=== PATIENT | male | born 1980 | race Caucasian/White ===

== ENCOUNTER 2017-11-25 09:30 | Outpatient (RCR) | payer MEDICAID, SELFPAY ==
--- NOTE | 2017-10-20 09:16 | HP.PTEVAL_ITS ---
Patient's Visit Information MARY CLANCY is a 37 year old M referred to Physical Therapy by [facility] [place] with a diagnosis of low back pain with sciatica on L side. Date of Evaluation: 10/15/17 Physical Therapist: Fred Rodriguez - Visit Plan Frequency: 2x /Week Duration: 4 Weeks Plan: Start with core strengthening, HS stretching, rectus fermoris stretching - Subjective Subjective: Pt. is here today for his initial evaluation with diagnosis of low back pain with sciatica on L side. Pt. reports having symptoms for ~ a year and a half. He reports having increased pain after mowing when he hit a hole (large hold), slamming him down. He reports having immediate pain, that is now on and off, but has been getting worse. He reports having 2 MRIs that have shown DDD and hip issues, but did not warrant surgery at this time. Pt. reports increased pain with sitting or standing for 1/2 hour, lifting heavy objects. Decreases pain: TENS, heat, ice if it is real bad, occassionally lying on a soft surface can help. Pt. denies N/T, no sudden weakness, no changes in B/B. He reports increased pain with chiropractor, mild decreased in pain with injections and mild pain relief with PT. Physician reports wanting to trial strengthening adn stretching to reduce symptoms. Pt. is hopeful to get back to work activities and recreational activities without symptoms. - Pain lumbar spine Pain Intensity (Out of 10): 6 Pain Intensity Range: 4, 8 L leg Pain Intensity (Out of 10): 0 Pain Intensity Range: 0, 8 Comment: burning in my hips, occassional shooting into his leg - Objective POSTURE: Pt. has slight fwrd flexed posture. Slight reduction in lumbar lordosis. pt. has equal iliac crest heights. Pt. also has FH positioning and rounded shoulders. Pt. has normal ROSALIA with normal knee postioning. Pt. does have slight lateral lean to R side with fwrd flexed posture. Pt. reports increased pain with attempting to correct. PALPATION: Pt. has increased tenderness at L SI region and L L2-S1 erector spinea. Pt. has mild increase NW symptoms with spring testing at L3-L5- reproduced lateral symptoms. Pt. has no pain to palpation of R side of lumbar spine. Pt. has no pain with palpation of bilateral hips. NEUROLOGICAL: Pt. has normal sensation to light and sharp touch throughout bilateral LEs. Pt. has 2+ achilles and patellar DTR bilaterally. Pt. is able to rise on heels and toes without issues or LOB. ROM: LUMBAR SPINE: flexion- min/mod loss increase L side pain, ext mod loss increase lumbar and L sided pain, SB R min loss increase NW on L side, SB L nil loss NE, rotations R min/nil loss increase NW, rotation L min/nil loss increase NW. Pt. has normal hip ROM, except mild increase in pain with hip flexion past 90deg and hip ext past 10deg bilaterally. HS length- R side 71deg, L side 58deg. MMT : RLE- ankle/knee 5/5 throughout; hip- flexion 4/5 increase NW, abd 4/5 increase NW, ext 4+/5, increase NW. LLE- ankle 5/5 throughotu; knee- ext 4+/5, flexion 4+/5; hip- flexon 4/5, abd 4/5, ext 4/5 increase NW with all L hip testing. Core strength- poor+. GAIT: Pt. has slight flexed posture in stance, pt. has normal step length, but decreased tempo with gait, minimal arm swing. Pt. has increase in R lateral/flexed lean with gait. STAIRS: Pt. is able to complete with reciprocal pattern, but does use 2 HR and reports increased pain with ascending/descending. - Special Tests L/S Slump test left side: Positive L/S Slump test right side: Negative L/S Left Straight Leg Raise: Positive L/S Right Straight Leg Raise: Negative Lumbar Standing: Flexion - Mechanical Response: No effect Lumbar Standing: Flexion - Symptoms During Testing: Increases Lumbar Standing: Flexion - Symptoms After Testing: No worse Lumbar Standing: Extension - Mechanical Response: No effect Lumbar Standing: Extension - Symptoms During Testing: Increases Lumbar Standing: Extension - Symptoms After Testing: No worse Lumbar Standing: Right Side Glides - Mechanical Response: No effect Lumbar Standing: Right Side [place] - Symptoms During Testing: Increases Lumbar Standing: Right Side [place] - Symptoms After Testing: No worse Lumbar Standing: Left Side [place] - Mechanical Response: No effect Lumbar Standing: Left Side [place] - Symptoms During Testing: Increases Lumbar Standing: Left Side [place] - Symptoms After Testing: No worse Lumbar Lying: Flexion - Mechanical Response: No effect Lumbar Lying: Flexion - Symptoms During Testing: Increases Lumbar Lying: Flexion - Symptoms After Testing: No worse Lumbar Lying: Extension - Mechanical Response: No effect Lumbar Lying: Extension - Symptoms During Testing: Increases Lumbar Lying: Extension - Symptoms After Testing: Worse Comments:: worse pain with prone ext testing Lumbar Static: Slouched Sit - Mechanical Response: No effect Lumbar Static: Slouched Sit - Symptoms During Testing: Increases Lumbar Static: Slouched Sit - Symptoms After Testing: Worse Lumbar Static: Sitting Erect - Mechanical Response: No effect Lumbar Static: Sitting Erect - Symptoms During Testing: Decreases Lumbar Static: Sitting Erect - Symptoms After Testing: No better Lumbar Static:Lying Prone in Extension - Mechanical Response: No effect Lumbar Static: Lying Prone in Extension - Sx During Testing: Increases Lumbar Static: Lying Prone in Extension - Sx After Testing: No worse R Hip Scour: Negative R Hip SUSIE - Intraarticular Pathology: Negative R Hip FADDIR - Labrum: Negative R Hip Sonia - IT Band: Negative L Hip Scour: Negative L Hip Quadrant - Intraarticular Pathology: Positive L Hip SUSIE - Intraarticular Pathology: Positive - Goals Goal 1:: Pt. to be I with HEP. Goal Time Frame: 4-6 Weeks Goal 2:: Pt. to have increase lumbar ROM by 25% without increased in symptoms. Goal Time Frame: 4-6 Weeks Goal 3:: Pt. to have increased B hip and core strength by 1/2 grade of all effected musculature to reduce stress on lumbar spine with all functional mobility. Goal Time Frame: 4-6 Weeks Goal 4:: Pt. to walk unlimited distances with 0-1/10 pain in lumbar spine allowing for increased tolerance to all functional mobility. Goal Time Frame: 4-6 Weeks Goal 5:: Pt. to reports no pain while sleeping allowing for increased quality of life. Goal Time Frame: 4-6 Weeks Goal 6:: Pt. to have increased HS length by 10deg allowing for normal pelvic positioning. Goal Time Frame: 4-6 Weeks - Rehabilitation Potential Physical Therapy Diagnosis: Pt. has signs and symptoms consistent with lumbar spine pain with radiation down his LLE to level of his knee. Pt. does not appear to have a directional preference. He has increased pain with walking, standing and prlonged sitting. He has poor posture in sitting and standing along with weak core musculature. He Rehabilitation Potential: Good - Anticipated Interventions Patient/Client Instruction: Educate patient on: Condition, Plan of Care, Risk Factors, Benefits of Fitness Program For the Purpose of:: To improve safety with gait, To assume or resume ADL's, To reduce risk of recurrence, To improve safety, To improve health and function, To foster healthy habits, To improve decision making, To facilitate caregiver knowledge, To improve self management, To prevent re-injury, To improve ability to perform tasks related to life management, To improve tolerance to ADL's Therapeutic Exercise to Include: Strength training, Power training, Endurance training, Body mechanics, Postural training, Flexibilty training, Passive ROM, Active ROM, Dynamic Lumbar Stabilization For the Purpose of:: To decrease pain, To increase ROM, To improve nutrient delivery to tissue, To increase oxygenation perfusion, To improve muscle performance and motor function, To improve performance and independence with ADL 's, To decrease level of supervision to perform tasks, To improve ability of physical actions for home/community/work/leisure, To improve gait and locomotor functions, To improve health of tissue, To decrease soft tissue restriction Manual Therapy Techniques to Include: Mobilization, Passive ROM, Functional dry needling, Soft tissue mobilization For the Purpose of:: To decrease pain, To increase ROM, To improve nutrient delivery to tissue, To increase oxygenation perfusion, To improve muscle performance and motor function IF ES: Yes Cryotherapy (ice pack, ice massage): Yes Thermo therapy (hot pack): Yes Ultrasound (thermal/non thermal): Yes For the Purpose of:: To decrease pain, To decrease swelling/inflammation, To increase ROM, To improve nutrient delivery to tissue, To increase oxygenation perfusion Thank you for the opportunity to evaluate your patient. For Medicare and Medicare HMO plans, please review the plan of care and approve it. It will need to be FAXED BACK to us at [phone] for Medicare purposes. Please let me know if there are questions or concerns regarding this plan of care. Physician Signature: Date:
--- NOTE | 2018-05-13 19:27 | HP.PTDCNRP_ITS ---
HP - Discharge Summary (1) - Patient Information MARY CLANCY was seen in my office for initial evaluation on 10/15/17. The following Plan of Care was established for this patient: Initial Frequency: 2x /Week Initial Duration: 4 Weeks - Anticipated Interventions Patient/Client Instruction: Educate patient on: Condition, Plan of Care, Risk Factors, Benefits of Fitness Program For the Purpose of:: To improve safety with gait, To assume or resume ADL's, To reduce risk of recurrence, To improve safety, To improve health and function, To foster healthy habits, To improve decision making, To facilitate caregiver knowledge, To improve self management, To prevent re-injury, To improve ability to perform tasks related to life management, To improve tolerance to ADL's Therapeutic Exercise to Include: Strength training, Power training, Endurance training, Body mechanics, Postural training, Flexibilty training, Passive ROM, Active ROM, Dynamic Lumbar Stabilization For the Purpose of:: To decrease pain, To increase ROM, To improve nutrient delivery to tissue, To increase oxygenation perfusion, To improve muscle performance and motor function, To improve performance and independence with ADL 's, To decrease level of supervision to perform tasks, To improve ability of physical actions for home/community/work/leisure, To improve gait and locomotor functions, To improve health of tissue, To decrease soft tissue restriction Manual Therapy Techniques to Include: Mobilization, Passive ROM, Functional dry needling, Soft tissue mobilization For the Purpose of:: To decrease pain, To increase ROM, To improve nutrient delivery to tissue, To increase oxygenation perfusion, To improve muscle performance and motor function IF ES: Yes Cryotherapy (ice pack, ice massage): Yes Thermo therapy (hot pack): Yes Ultrasound (thermal/non thermal): Yes For the Purpose of:: To decrease pain, To decrease swelling/inflammation, To increase ROM, To improve nutrient delivery to tissue, To increase oxygenation perfusion This patient was last seen in our office 11/25/17. Pertinent comments regarding their Physical therapy will appear below: Pt. was seen in PT for his low back pain. Pt. was making minmal progressed with trials of strengthening, stretching and modalities. Pt. was referred back to his physician and to follow back up with PT if needed. Pt. has not been seen in ~6 months and will be DC from PT at this point in time. At this point I will be discontinuing this patient from physical therapy. I would be happy to see this patient again in the future if found appropriate by the physician. Thank you! Fred Rodriguez
== END 2017-11-25 19:00 | disposition home or self-care (01) ==
LOC: PT 09:30
PROVIDERS: Family Provider Internal Medicine; PCP Internal Medicine
DX: M54.40 Lumbago with sciatica, unspecified side (principal); G89.29 Other chronic pain
CPT/HCPCS: 97012; 97110; 97162; 97530

== ENCOUNTER 2018-01-09 12:24 | Day surgery (SDC) | payer MEDICAID, SELFPAY ==
[2018-01-09 12:41] VITALS: BP 108/61; PULSE 65; RESP 16; TEMP 36.6; O2SAT 93; BMI 34.6
--- NOTE | 2018-01-09 14:58 | PCM.DC ---
- Discharge Diagnoses Current Active Problems: Lumbar degenerative disc disease and lumbar radiculopathy Disc displacement with lumbar radiculopathy Reason(s) for Visit for Discharge Instructions: Caudal epidural steroid injection under fluoroscopy guidance You will use the following diet at home:: No restrictions Your food should be the consistency of: Regular Discharge Activity: Return to Normal Activity, No Restrictions, May not drive while taking narcotic pain medications. May shower in (days): 1 May resume sexual activity in: No Restrictions Weight Bearing Status: Weight bearing as tolerated Call your doctor if your incision/area has: Increased Pain/ Swelling, Swelling at the incision site Call your doctor if you observe: Fever of 101 or Higher, Inability to have a bowel movement, Calf discomfort, Uncontrolled pain Suture Line Care: Avoid Pulling/Pushing, Avoid Pinching/Bending Remove Dressing in (days):: 1 Cleanse incision/area with: Soap & Water Allergies/Adverse Reactions: Allergies acetaminophen [From Vicodin] Allergy (Verified 01/05/18 12:05) MUSCLULAR CHEST PAIN hydrocodone [From Vicodin] Allergy (Verified 01/05/18 12:05) MUSCLULAR CHEST PAIN Penicillins Allergy (Verified 01/05/18 12:05) Swelling Medications to take at Discharge Bupropion HCl [Wellbutrin Xl] 150 mg PO DAILY 01/05/18 Fluoxetine [Prozac] 10 mg PO DAILY 01/05/18 Meloxicam [Mobic] 7.5 mg PO DAILY 01/05/18 Metaxalone [Skelaxin] 800 mg PO TID 01/05/18 traZODone [Desyrel] 100 mg PO QHS 01/05/18 Primary Care Physician: Rachael Arreola MD [Primary Care Provider] - Please Follow Up With: Eric Roach MD
[2018-01-09] MEDS: Triamcinolone Acetonide 40 MG/ML Vial (15:06)
--- NOTE | 2018-01-09 15:14 | OP.PCM_ITS ---
Problem List (1) Other intervertebral disc displacement, lumbar region Status: Acute (2) Other intervertebral disc displacement, lumbar region Status: Acute (3) Other intervertebral disc degeneration, lumbar region Status: Acute (4) Other intervertebral disc degeneration, lumbar region Status: Acute Report of Operation Date of Procedure: 01/09/18 Pre-Operative Diagnosis: Lumbar disc displacement, lumbar degenerative disc disease with lumbar radiculopathy Post-Operative Diagnosis: same Surgery/Procedure Performed:: Caudal epidural steroid injection under fluoroscopy guidance Description of Surgical Findings:: Under sterile conditions. Patient placed in the prone position, pressure points were padded, patient was ready from the nursing and the anesthesia team. After identification of the side and the target area for the block under guided fluoroscopy, the entry site was marked with marking pen. I used Betadine for sterilization of the skin, sterile draping were applied. Using 25-gauge needle to infiltrate the skin with local anesthesia using preservative-free lidocaine 1 % injected 2.5 mL at site of entry. Using guided fluoroscopy, accessed the the posterior epidural space using 22- spinal needles under midline approach, accessed the site was assisted with lateral fluoroscopy, negative aspiration of CSF and blood. Injected contrast solution [2.5] mL under live fluoroscopy which showed good spread of the contrast to the posterior caudal epidural space and to the targeted area of the injection at[ L-5- S1]. Injected [5] mL of mixture of preservative-free lidocaine and Kenalog [80] mg for the procedure which showed appropriate spread in the epidural space. [place] was removed, pressure dressing were applied. Patient tolerated the procedure well and was taken to the recovery. Type of Anesthesia:: Local MAC, MAC Special Medications: Lidocaine 0.5 preservative-free. Contrast isotope solution. Kenalog 80 mg Estimated Blood Loss (mL): None - Complications None
[2018-01-09 15:16] VITALS: BP 108/61; BP 111/61; PULSE 65; RESP 16; TEMP 36.7; O2SAT 99
[2018-01-09 15:20] VITALS: BP 108/61; BP 109/77; PULSE 63; RESP 16; O2SAT 98
[2018-01-09 15:25] VITALS: BP 108/61; BP 96/66; PULSE 61; RESP 16; O2SAT 98
[2018-01-09 15:30] VITALS: BP 108/61; BP 111/66; PULSE 94; RESP 16; TEMP 36.8; O2SAT 97
--- NOTE | 2018-01-09 15:30 | RAD_ITS ---
PROCEDURE: Caudal block. DATE OF EXAMINATION: January 09, 2018. INDICATION: Male, 37 years old. Chronic back pain. FLUOROSCOPY TIME (if supplied): (0:14) minutes/seconds Intraoperative fluoroscopic imaging provided for caudal block. A spinal needle is seen overlying the posterior midportion of the sacrum. RAD/Fluor Guidance for Spine Inj IMPRESSION: Intraoperative imaging provided for caudal block. Electronically Signed: Dominick Vaughan MD at 15:52 EDT Tel [phone], Service support ,
[2018-01-09 15:40] VITALS: BP 108/61
== END 2018-01-09 15:41 | disposition home or self-care (01) ==
LOC: SDC 12:25 → AC 12:26
PROVIDERS: Family Provider Internal Medicine; PCP Internal Medicine; Visit Provider Anesthesiology
PROC: 3E0S3BZ Introduction of Anesthetic Agent into Epidural Space, Percutaneous Approach (ICD-10-PCS; CPT 62282; principal; 2018-01-09 14:10)
DX: M51.16 Intervertebral disc disorders with radiculopathy, lumbar region (principal); F31.9 Bipolar disorder, unspecified; Z79.899 Other long term (current) drug therapy; G47.30 Sleep apnea, unspecified; Z86.718 Personal history of other venous thrombosis and embolism; F41.9 Anxiety disorder, unspecified; F17.200 Nicotine dependence, unspecified, uncomplicated; Z79.1 Long term (current) use of non-steroidal anti-inflammatories (NSAID)
CPT/HCPCS: 62323; 64483; 77003; J7120

== ENCOUNTER → 2018-02-18 08:21 | Outpatient (CLI) | payer MEDICAID, SELFPAY ==
--- NOTE | 2018-02-18 08:23 | RAD_ITS ---
STUDY: X-RAY - LEFT WRIST REASON FOR EXAM: Male, 37 years old. BILATERAL WRIST PAIN, LEFT WORSE THAN RIGHT, HX CYSTS TECHNIQUE: 3 view(s) of the wrist were obtained. COMPARISON: None. FINDINGS: Normal visualized distal radius and ulna. Normal radiocarpal articulation. Normal distal radioulnar articulation. Normal carpal bones. Normal carpal articulations. Normal carpometacarpal articulation of the thumb. Normal second through fifth carpometacarpal articulations. Normal visualized metacarpal bones. The soft tissue structures are unremarkable. RAD/Wrist min 3 Views IMPRESSION: Normal x-ray examination of the wrist. Electronically Signed: Naresh Swanson MD at 16:52 EDT , Service support ,
--- NOTE | 2018-02-18 08:23 | RAD_ITS ---
STUDY: X-RAY - RIGHT WRIST REASON FOR EXAM: Male, 37 years old. BILATERAL WRIST PAIN, LEFT WORSE THAN RIGHT, HX CYSTS TECHNIQUE: 3 view(s) of the wrist were obtained. COMPARISON: None. FINDINGS: Normal visualized distal radius and ulna. Normal radiocarpal articulation. Normal distal radioulnar articulation. Normal carpal bones. Normal carpal articulations. Normal carpometacarpal articulation of the thumb. Normal second through fifth carpometacarpal articulations. Normal visualized metacarpal bones. The soft tissue structures are unremarkable. RAD/Wrist min 3 Views IMPRESSION: Normal x-ray examination of the wrist. Electronically Signed: Naresh Swanson MD at 16:53 EDT , Service support ,
[2018-02-18 09:20] LABS: Lyme Ab Screen Interpretation REF LAB
[2018-02-18 10:05] LABS: Erythrocyte Sedimentation Rate 5 mm/hr (0-15)
[2018-02-18 10:07] LABS: Absolute Lymphocyte Count 3.13 X10^3/ul (0.83-4.51); Absolute Neutrophil Count 7.4 X10^3/uL (2.0-7.7); Basophil# 0.05 X10^3/uL; Basophil% 0.4 % (0-1); Eosinophil# 0.23 X10^3/uL; Hematocrit 46.1 % (40-54); Hemoglobin 15.6 g/dl (13.0-16.5); Lymphocyte # 3.13 X10^3/ul (4.0); Mean Corp Hgb Conc 33.8 g/gl (32-36); Mean Corpuscular Hgb 31.2 pg (27.0-32.0); Mean Corpuscular Volume 92.2 fL (80-94); Monocyte% 6.9 % (0-10); Neutrophil # 7.36 X10^3/uL (2.7-7.7); Neutrophil % 63.4 % (47-70); Platelet Count 190 K/mm3 (150-450); RBC Distribution Width CV 13.5 % (11.6-14.6); White Blood Count 11.6 K/mm3 (4.4-11.0)
[2018-02-18 10:12] LABS: POSITIVE COUNT NO; POSITIVE DIFFERENTIAL NO; POSITIVE MORPHOLOGY NO
[2018-02-18 10:31] LABS: CRP 9.66 mg/L (0.0-3.0); Rheumatoid Factor < 10.0 IU/mL (<15)
[2018-02-20 12:05] LABS: ANTINUCLEAR ANTIBODIES DIRECT Negative (Negative)
[2018-02-25 11:10] LABS: CCP IgG Antibodies 3 units (0-19); HLA B27 Negative (.); Lyme Scn Total Ab w/Rflx <0.91 ISR (0.00-0.90)
== END ==
PROVIDERS: Family Provider Internal Medicine; PCP Internal Medicine; Visit Provider Orthopaedic Surgery
DX: M25.531 Pain in right wrist (principal); M25.532 Pain in left wrist
CPT/HCPCS: 36415; 73110; 81374; 85025; 85652; 86038; 86140; 86200; 86431; 86618

== ENCOUNTER 2019-12-09 00:37 | Emergency (ER) | payer MEDICAID, SELFPAY ==
[2019-12-09 00:39] VITALS: BP 130/82; PULSE 90; RESP 16; TEMP 37; O2SAT 93; BMI 34.4
--- NOTE | 2019-12-09 00:56 | CT_ITS ---
STUDY: CT BRAIN WITHOUT CONTRAST REASON FOR EXAM: Male, 39 years old. SEIZURE, HAS HAD DOTY RECENTLY, FOUND BY MOTHER ON FLOOR HAVING SEIZURE, NO HX RADIATION DOSAGE (If Supplied By Facility): CTDIvol = ( 44.99 ) mGy, DLP = ( 829.85 ) mGycm TECHNIQUE: Transaxial CT imaging of the brain was performed without administration of intravenous contrast material. Individualized dose optimization techniques were used for this CT. COMPARISON: No relevant priors. FINDINGS: Normal soft tissue structures. Normal calvarium. Normal size ventricles and extra-axial spaces for the patient''s age. Normal white matter tracts of the cerebral hemispheres. Normal basal ganglia and thalami. Normal brainstem. Normal cerebellum. There is no intracranial hemorrhage. There are no findings of an acute ischemic infarction. Paranasal sinus disease. Mild anterior subluxation of the bilateral mandible from the TMJ. CT/Brain/Head without Contrast IMPRESSION: No acute territorial infarct or intracranial hemorrhage identified. If patient''s symptomology persists or there is continuing clinical concern MRI may be performed to further evaluate. Other findings as discussed above. Electronically Signed: Wagner Rosa, at 2:03 EST Tel , Service support ,
--- NOTE | 2019-12-09 00:58 | ED.VIS.GEN ---
History of Present Illness Chief Complaint: Seizure Informant: Patient, Family Narrative: Patient had a witnessed seizure by family this evening lasting 3 minutes. It was tonic-clonic. Patient fell to the ground from standing in his basement. He stated his low back is causing him some pain. He has chronic low back pain secondary to degenerative disc disease. He does not remember what happened. He had he was post ictal after. He did bite his tongue. He is never had a seizure before. The patient stated he has been having intermittent headaches recently over the last several months. He had a negative MRI per patient 2 weeks ago. He was placed on propranolol and has been taking it for 2 weeks to prevent headaches. Stated he does smoke marijuana but has not smoked today. Denies any other illicit drugs. States he occasionally drinks alcohol on the weekends but is not serious or significant drinker. Past Medical History - Allergies and Home Meds Allergies/Adverse Reactions: Allergies acetaminophen [From Vicodin] Allergy (Verified 12/09/19 00:45) MUSCLULAR CHEST PAIN hydrocodone [From Vicodin] Allergy (Verified 12/09/19 00:45) MUSCLULAR CHEST PAIN Penicillins Allergy (Verified 12/09/19 00:45) Swelling Primary Care Physician: Rachael Arreola MD [Primary Care Provider] - Prior records reviewed: Yes Past Medical History: - - Headaches, degenerative disc disease lumbar spine Surgical History: noncontributory Lives: With Family Smoking Status: Current every day smoker Alcohol: Occasional Drugs: Marijuana Review of Systems General: Denies: Chills, Fever, Sweats Eyes: Denies: Visual changes - bilaterally, Diplopia ENT: Denies: Rhinorrhea, Sore throat Cardiovascular: Denies: Chest pain, Palpitations Respiratory: Denies: Dyspnea, Cough, Dyspnea on exertion Gastrointestinal: Denies: Abdominal pain, Nausea, Vomiting, Diarrhea, Melena, Hematochezia Genitourinary: Denies: Dysuria, Hematuria, Frequency Musculoskeletal: Reports: Back pain. Denies: Extremity Pain Skin: Denies: Rash, Wounds Neurological: Reports: Headache - Mild diffuse headache throbbing. Denies: Weakness, Numbness Physical Exam Vital Signs/Narrative: Vital Signs Temp Pulse Resp BP Pulse Ox 12/09/19 00:39 98.6 F 90 16 130/82 H 93 General: Well nourished, Well developed, No Acute Distress Head: Normocephalic, Atraumatic Eyes: Perrl, EOMI ENT: Moist mucous membranes, No rhinorrhea, - - 1 cm tongue laceration. Full-thickness no bleeding Neck: Supple, Nontender Cardiovascular: Regular rate, Regular rhythm, No murmurs Respiratory: No distress, CTA bilaterally, Chest nontender Abdomen: Soft, Nontender, Nondistended, Normal bowel sounds Back: Normal Inspection, - - Tender palpation diffuse across the lumbar spine. Negative for: Nontender Extremities: Nontender, No edema Skin: Normal color, No rash Neurological: Alert, Oriented x3, Cranial nerves II-XII grossly intact, Normal Strength, Normal Sensation Psychological: Normal affect, Normal Mood Diagnostic/Tx/Re-eval - Medical Decision Making Patient given IV fluids morphine and Ativan. Lab work and CT had obtained. Lab work shows a mild leukocytosis which I suspect is from his seizure at 15,000. Electrolytes unremarkable. Patient felt better after treatment. Also given a dose of morphine for his back pain. I suspect that he strained his back and aggravated his chronic back pain from his mechanical fall. CT head shows no acute abnormalities. Patient recently just had a negative MRI as well. No further seizure activity in the department. I feel that the patient can be discharged to follow-up with neurology as an outpatient. Given referral. I do not feel he needs to start seizure medications at this time. May be related to his marijuana usage. May be related to his intermittent use of trazodone as well as Wellbutrin. I do not feel the beta-chari is causing seizure. Patient's not going to drive until follow-up. ED Disposition - Plan for ED Patient: Disposition: Home or Assisted Living Diagnosis: Tongue laceration, Tonic clonic seizures, Marijuana abuse Instructions: SEIZURE, New Onset, Unk Cause [Adult] Prescriptions: Meloxicam 15 mg PO DAILY PRN #30 tab PRN Reason: Pain Or Fever Transmission Status: Pending to [id number] - [place], Referrals: Rachael Arreola MD [Primary Care Provider] - Jose Vu MD [STAFF PHYSICIAN] -
[2019-12-09] MEDS: Morphine 4 MG/ML Syringe IV (01:01)
[2019-12-09 01:03] LABS: Absolute Lymphocyte Count 3.27 X10^3/uL (0.83-4.51); Absolute Neutrophil Count 10.7 X10^3/uL (2.0-7.7); Basophil# 0.08 X10^3/uL; Basophil% 0.5 % (0-1); Eosinophil# 0.13 X10^3/uL; Eosinophils% 0.8 % (0-5); Hematocrit 48.2 % (40-54); Hemoglobin 16.5 g/dL (13.0-16.5); Lymphocyte # 3.27 X10^3/ul (4.0); Lymphocyte % 21.2 % (19-41); Mean Corp Hgb Conc 34.2 g/dL (32-36); Mean Corpuscular Hgb 31.3 pg (27.0-32.0); Mean Corpuscular Volume 91.5 fL (80-94); Mean Platelet Vol. 10.6 fl (6.2-12.0); Monocyte# 0.99 X10^3/uL; Monocyte% 6.4 % (0-10); NRBC Flagged by Analyzer 0 % (0-5); Neutrophil % 69.5 % (47-70); Platelet Count 195 K/mm3 (150-450); RBC Distribution Width CV 13.1 % (11.6-14.6); RBC Distribution Width SD 44.3 fl (35.1-43.9); Red Blood Count 5.27 M/mm3 (4.6-6.2); White Blood Count 15.4 K/mm3 (4.4-11.0)
[2019-12-09] MEDS: LORazepam 2 MG/ML Syringe 1 MG IV (01:05)
[2019-12-09] MEDS: 0.9% Normal Saline 1,000 ML 150 ML IV (01:06)
[2019-12-09 01:12] LABS: Anion Gap 11 (5-15); BUN 14 mg/dL (7-18); BUN/Creat Ratio 10.4 RATIO (10-20); Calcium,Total 8.9 mg/dL (8.5-10.1); Chloride 106 mmol/L (98-107); Creatinine, Serum 1.35 mg/dL (0.70-1.30); EST Glomerular Filtration Rate 63 mL/min (>60); Est Glom Filt Rate - Afr Amer 76 mL/min (>60); Estimated Creatinine Clearance 71.07 ml/min; Glucose 134 mg/dL (74-106); Potassium 4.2 mmol/L (3.5-5.1); Sodium Level 139 mmol/L (136-145)
--- NOTE | 2019-12-09 02:02 | ED.RN ---
pt able to stand at bedside to use urinal. c/o back pain with movement. returned to bed after voiding 500cc clear yellow urine without incident.
[2019-12-09] MEDS: HYDROmorphone 1 MG/ML Syringe IV (02:31)
[2019-12-09 02:58] VITALS: BP 122/86; PULSE 90; RESP 18; O2SAT 95
== END 2019-12-09 02:59 | disposition home or self-care (01) ==
PROVIDERS: Emergency Provider Emergency Medicine; PCP Internal Medicine
DX: S01.512A Laceration without foreign body of oral cavity, initial encounter (principal); G40.409 Other generalized epilepsy and epileptic syndromes, not intractable, without status epilepticus; W19.XXXA Unspecified fall, initial encounter; Y93.9 Activity, unspecified; Y92.9 Unspecified place or not applicable; M51.36 Other intervertebral disc degeneration, lumbar region; Z79.899 Other long term (current) drug therapy; F12.10 Cannabis abuse, uncomplicated
CPT/HCPCS: 70450; 80048; 85025; 96361; 96374; 96375; 99285; J7030; A4216

== ENCOUNTER 2019-12-29 16:24 | Emergency (ER) | payer MEDICAID, SELFPAY ==
[2019-12-29 16:29] VITALS: BP 112/66; BP 119/76; PULSE 79; PULSE 82; RESP 17; RESP 18; TEMP 36.8; O2SAT 93; O2SAT 96; BMI 32.8
--- NOTE | 2019-12-29 17:03 | RAD_ITS ---
STUDY: X-RAY - LEFT SHOULDER REASON FOR EXAM: Male, 39 years old. SEIZURE WITH FALL, PAIN TECHNIQUE: 2 view(s) of the shoulder. COMPARISON: None. FINDINGS: No acute fracture, dislocation or osseous destruction. No significant joint space narrowing. No significant productive changes. No significant soft tissue swelling. IMPRESSION: Normal x-ray examination of the shoulder. Electronically Signed: Christopher Burns, at 18:11 EDT Tel , Service support , RAD/Shoulder min 2 Views
--- NOTE | 2019-12-29 17:04 | RAD_ITS ---
STUDY: X-RAY - LUMBAR SPINE REASON FOR EXAM: Male, 39 years old. SEIZURE WITH FALL, PAIN TECHNIQUE: 3 view(s) of the lumbar spine were obtained. COMPARISON: 08/12/16 FINDINGS: Normal lumbar lordosis. There is no substantial scoliosis. There is a normal alignment of the vertebrae. There is moderate loss of vertebral height at the partially visualized lower thoracic spine. The soft tissue structures are unremarkable. RAD/Lumbar Spine 2 or 3 Views IMPRESSION: No acute osseous abnormality. Moderate loss of vertebral height at multiple levels of the partially visualized lower thoracic spine. Electronically Signed: Christopher Burns, at 18:15 EDT Tel , Service support ,
[2019-12-29] MEDS: Morphine 4 MG/ML Syringe IV (17:30)
--- NOTE | 2019-12-29 18:47 | ED.DCSUM_ITS ---
- ER Visit Summary Date of Service: 12/29/19 Chief Complaint: Seizure History of Present Illness: The patient is a 39 M who presents with a seizure that occurred today. Patient states that he was recently diagnosed with seizures. Patient states he takes Lamictal for his bipolar disorder but not necessarily his seizure disorder. Patient states he fell and landed on his left shoulder. Patient complains of pain in his left shoulder and low back. Patient denies any incontinence of urine or stool. Patient denies biting his tongue. Patient admits to a mild headache. Patient denies any paresthesias or weakness. Physical Examination: Vital signs are stable. Patient is afebrile. Patient is in no acute distress. Oral mucosa is pink and moist. There is no abrasions of the cheek or tongue. There is no bleeding noted. Neck is supple. Trachea is midline. Is no JVD. Heart was regular rate and rhythm. Lungs are clear and equal bilaterally. Abdomen is soft and nontender. Cranial nerves II through XII are intact. Strength is 5/5 bilateral in the upper and lower extremities. There are no sensory deficits noted. Musculoskeletal exam reveals tenderness over the left shoulder. There is no deformity. Range of motion was limited in abduction and external rotation secondary to pain. There is no laxity appreciated. There is also tenderness of the lumbar spine and paraspinal muscles. There is no bony crepitance or step-off. Range of motion was limited in all motions of the lumbar spine secondary to pain. Test Results: X-rays of the left shoulder and lumbar spine were obtained. There is no acute fractures noted. There is no dislocation. There is no spondylolisthesis or spondylolysis. These were interpreted by the radiologist and reviewed by myself. Emergency Department Course and Treatment: Patient was given a dose of morphine here. Seizure precautions were maintained. The Lamictal level was ordered and is pending. Patient was given a prescription for a short course of Percocet. Patient was instructed to continue his medications as previously prescribed. Patient was instructed to follow-up with his primary care physician and neurologist in 3 to 5 days. Patient understood and was agreeable with the plan. All questions were answered. Disposition: Discharge home Impression: Seizure disorder This note was generated with [employer] dictation software. It may contain incorrect words, spelling, and punctuation that were not noted in review of the chart prior to signing ED Disposition - Plan for ED Patient: Disposition: Home or Assisted Living Diagnosis: Seizure Instructions: SEIZURE, Recurrent [Adult] Prescriptions: Oxycodone HCl/Acetaminophen [Percocet 5/325] 1 tab PO Q6H PRN PRN 3 Days #12 tab PRN Reason: Pain Prescription Printed Referrals: Rachael Arreola MD [Primary Care Provider] - 3-5 Days
[2019-12-29 19:23] VITALS: BP 141/70; PULSE 70; RESP 18; O2SAT 96
[2019-12-29] MEDS: oxyCODONE 5 MG Tablet PO (19:26)
--- NOTE | 2019-12-29 19:36 | NURSING ---
UP ON PROVIDEING PT W/DC INTRUCTIONS, HE EXPRESSED CONCERNS THAT HE WOULD BE UNABLE TO AMBULATE WITHOUT HAVING PAIN MEDICATIONS AT HOME. DR DYE INFORMED. PERCOCET ORDERED FOR HOME. PT AGREEABLE TO DC.
[2020-01-03 13:57] LABS: Lamotrigine (Lamictal) Level 2.9 ug/mL (2.0-20.0)
== END 2019-12-29 19:38 | disposition home or self-care (01) ==
PROVIDERS: Emergency Provider Emergency Medicine; PCP Internal Medicine
DX: G40.909 Epilepsy, unspecified, not intractable, without status epilepticus (principal); M25.512 Pain in left shoulder; M54.5 Low back pain; F31.9 Bipolar disorder, unspecified; F41.9 Anxiety disorder, unspecified; Z79.899 Other long term (current) drug therapy; Z72.0 Tobacco use
CPT/HCPCS: 72100; 73030; 82542; 96374; 99284; J7030; A4216

== ENCOUNTER 2023-10-13 17:09 | Emergency (ER) | payer MEDICAID, SELFPAY ==
[2023-10-13 17:10] VITALS: BP 130/64; PULSE 109; RESP 18; TEMP 36; O2SAT 94; BMI 36.9
--- NOTE | 2023-10-13 17:45 | CT_ITS ---
EXAM: CT HEAD WITHOUT INTRAVENOUS CONTRAST CLINICAL INDICATION: seizure TECHNIQUE: Multiple axial images were obtained of the head without intravenous contrast. This CT exam was performed using one or more of the following dose reduction techniques: automated exposure control, adjustment of the mA and/or kV according to patient size, and/or use of iterative reconstruction technique. COMPARISON: No relevant prior studies available. FINDINGS: BRAIN AND EXTRA-AXIAL SPACES: Unremarkable. No intra- or extra-axial hemorrhage. No evidence of acute infarct. No intracranial mass or mass effect. There is preservation of the barth/white matter interface. Posterior fossa structures are unremarkable. Ventricles are appropriate for age. No hydrocephalus. Basal cisterns are patent. BONES/JOINTS: Unremarkable. No discrete lytic or blastic abnormalities. SINUSES: Unremarkable as visualized. Clear. MASTOID AIR CELLS: Unremarkable. Clear. ORBITS: Visualized globes, extraocular muscles, optic nerves and retrobulbar fat appear unremarkable. CT/Brain/Head without Contrast IMPRESSION: Negative head/brain CT without intravenous contrast. Electronically Signed: Chandra Caruso MD at 19:38 EST ,
--- NOTE | 2023-10-13 17:45 | CT_ITS ---
EXAM: CT THORACIC SPINE WITHOUT INTRAVENOUS CONTRAST CLINICAL INDICATION: trauma TECHNIQUE: Helically acquired images were obtained of the thoracic spine without intravenous contrast. 2D reformats were reviewed. This CT exam was performed using one or more of the following dose reduction techniques: automated exposure control, adjustment of the mA and/or kV according to patient size, and/or use of iterative reconstruction technique. COMPARISON: No relevant prior studies available. FINDINGS: VERTEBRAE: Unremarkable. No fracture. No traumatic subluxation. No discrete lytic or blastic abnormality. Normal alignment. DISCS/SPINAL CANAL/NEURAL FORAMINA: Unremarkable. Disc heights are preserved. VASCULATURE: Visualized thoracic aorta is not dilated. LYMPH NODES: Unremarkable. No retroperitoneal adenopathy. LUNGS AND PLEURAL SPACES: Unremarkable as visualized. No mass. No consolidation or edema. No pleural effusion or thickening. No pneumothorax. CT/Spine Thoracic without Contras IMPRESSION: No evidence of acute thoracic spinal fracture or spondylolisthesis. Electronically Signed: Chandra Caruso MD at 19:39 EST ,
--- NOTE | 2023-10-13 17:47 | EX.ED.DYSGE1 ---
HPI History of Present Illness Chief Complaint: Seizure Informant: patient and family Narrative Narrative: Presents by EMS from home recurrent seizure. History of seizures for the past few years he is on Lamictal 300 mg twice daily. He is typically compliant he is unsure if he took it last night. Denies alcohol use. Recreational drug use of marijuana daily. Denies recent vomiting diarrhea. Denies urinary symptoms. Today had prodromal dizziness typically he does not have prodromal symptoms. Reports from the fall increasing upper back pain. Prior similar symptoms: Yes PFSH PFSH Home Medications trazodone 100 mg tablet 100 mg PO QHS 01/05/18 [History Last Taken Unknown] alprazolam 0.5 mg tablet 0.5 mg PO BID 12/29/19 [History Last Taken Unknown] lamotrigine 200 mg tablet 300 mg PO Q12H SEIZURES 12/29/19 [History Last Taken Unknown] oxycodone-acetaminophen 5 mg-325 mg tablet 1 tab PO Q6H PRN PRN Pain 3 days #12 TABLETS 10/13/23 [Rx Last Taken Unknown] Allergy/AdvReac Type Severity Reaction Status Date / Time acetaminophen [From Vicodin] Allergy MUSCLULAR Verified 10/13/23 17:16 CHEST PAIN hydrocodone [From Vicodin] Allergy MUSCLULAR Verified 10/13/23 17:16 CHEST PAIN Penicillins Allergy Swelling Verified 10/13/23 17:16 prednisone AdvReac Pain in Verified 10/13/23 17:16 joints Social History Smoking Status: Current every day smoker tobacco type: cigarettes ROS ROS ED Constitutional Constitutional ED: Denies chills, fever(s) or sweats Eyes Eyes: Denies change in vision ENT ENT ED: Denies dysphagia or sore throat Cardiovascular Cardiovascular: Denies chest pain, leg edema, palpitations or racing heartbeat Respiratory/Chest Respiratory/Chest: Denies cough, dyspnea or dyspnea on exertion Gastrointestinal Gastrointestinal: Denies abdominal pain, diarrhea, nausea or vomiting Genitourinary Genitourinary ED: Denies dysuria, hematuria or urinary frequency Musculoskeletal Musculoskeletal: Denies back pain, extremity pain or neck pain Integumentary Denies rash or wounds Neurologic Neurologic: Reports other Details: Seizure ; Denies headache(s), paresthesias or weakness EXAM Physical Exam Const Vital Signs: 10/13/23 17:10 10/13/23 19:10 10/13/23 21:13 Temperature 96.8 F L Temperature Source Temporal Pulse Rate 109 H 79 85 Respiratory Rate 18 21 H 18 Blood Pressure 130/64 H 122/68 H 119/78 Blood Pressure Mean 86 86 91 Pulse Ox 94 92 94 Oxygen Delivery Method Room Air Room Air Positive well nourished and well developed Constitutional Narrative: Back to baseline General Appearance ED: well developed and NAD HEENT Reports moist mucous membranes HEENT Narrative: 2.5 cm laceration of the tongue left upper region with no active bleeding. No dental loosening. normocephalic and atraumatic Eyes PERRL, EOMs intact bilaterally and conjunctivae normal General Eye ED: Yes normal appearance of both eyes Neck no lymphadenopathy and supple General: Negative for tenderness Chest Wall inspection of chest normal and palpation of chest normal Chest: Negative for tenderness Resp normal respiratory effort and normal air movement Effort and Inspection: symmetric chest movement; Negative for respiratory distress Cardio regular rate, regular rhythm and no murmurs Peripheral Pulses: pulses 2+ throughout GI normal to inspection, nondistended, normoactive bowel sounds and non-tender Palpation: Negative for guarding or rebound tenderness present Back/Spine no CVA tenderness Back/Spine Narrative: Midline tenderness of the upper thoracic region with no step-offs. No ecchymosis of the back. Extremity normal to inspection General Extremety ED: Negative for edema or tenderness General Extremity: Negative for edema Neuro oriented x3, CN's II-XII intact bilaterally and no sensory deficits noted Sensorium / Orientation: awake and alert Skin no rashes or lesions noted and no wounds MDM MDM MDM Narrative Medical decision making narrative: Interventions / MDM: Differential diagnosis: Breakthrough seizure, tongue laceration Diagnosis considered but do not suspect: Electrolyte abnormalities however labs normal. Infectious etiology however urine negative. No cough symptoms for concerns for pneumonia. Intracranial hemorrhage however negative CT. Fracture however negative imaging. My EKG interpretation: N/A Imaging independently reviewed and interpreted by myself: CT brain: No acute process. CT thoracic spine, no fractures. External documents reviewed: N/A Test considered but not ordered:N/A ED course: Patient seizure back to baseline he has a large tongue laceration. This was repaired. Severe pain in his upper back, trauma scans head and thoracic spine obtained. Labs and urine ordered. His last seizure was 2 years ago. He he may have missed his dose yesterday evening's dose however states typically compliant. Patient remained stable additional pain medicines for his back pain. Workup negative from infectious and trauma. His tongue laceration was repaired by myself. ENT follow-up. He is able to ambulate in the ED. Procedure note: Laceration repair. Verbal consent. Normal sterile conditions. Total 4 cc 1% lidocaine with epinephrine used for local analgesia of the tongue laceration. Total of 6, 5-0 Chromic Gut simple interrupted sutures were placed good approximation of the tongue. Patient tolerated procedure well. Re-evaluation: stable Disposition discussed with patient/family/significant other: Patient and family Case discussed with consulting clinician: N/A This note was generated with [employer] dictation software. It may contain incorrect words, spelling, and punctuation that were not noted in checking the note before signing. Lab Data Attestation: I reviewed the patient's lab results. Labs: Laboratory Results - last 24 hr 10/13/23 10/13/23 17:00 19:56 WBC 14.7 H RBC 5.68 Hgb 17.3 H Hct 53.0 MCV 93.3 MCH 30.5 MCHC 32.6 RDW Std Deviation 43.7 RDW Coeff of [place] 12.7 Plt Count 262 MPV 11.3 Immature Gran % (Auto) 3.100 H Neut % (Auto) 35.3 L Lymph % (Auto) 49.9 H [place] % (Auto) 9.7 Eos % (Auto) 1.0 Baso % (Auto) 1.0 Absolute Neuts (auto) 5.2 Absolute Lymphs (auto) 7.34 H Nucleated RBC % 0 Differential Comment SCANNED Reactive Lymphocytes 1+ Sodium 139 Potassium 3.5 Chloride 107 Carbon Dioxide 19.0 L Anion Gap 13 BUN 12 Creatinine 1.21 Estim Creat Clear Calc 76.16 Est GFR (MDRD) Af Amer 84 Est GFR (MDRD) Non-Af 70 BUN/Creatinine Ratio 9.9 L Glucose 92 Calcium 9.7 Urine Color Yellow Urine Clarity Clear Urine pH 5.0 Ur Specific [place] 1.025 Urine Protein 30 H Urine Glucose (UA) Normal Urine Ketones 5 H Urine Occult Blood Negative Urine Nitrite Negative Urine Bilirubin Negative Urine Urobilinogen Normal Ur Leukocyte Esterase Negative Urine RBC 0 SEEN Urine WBC 0 SEEN Ur Squamous Epith Cells 0 SEEN Urine Bacteria 0 SEEN Urine Mucus 0 SEEN Radiography Diagnostic Testing: Clinical Impression(s) from Imaging Studies Brain CT 10/13/23 17:45 IMPRESSION: Negative head/brain CT without intravenous contrast. Electronically Signed: Chandra Caruso MD at 19:38 EST , Thoracic Spine CT 10/13/23 17:45 IMPRESSION: No evidence of acute thoracic spinal fracture or spondylolisthesis. Electronically Signed: Chandra Caruso MD at 19:39 EST , Discharge Plan Triage Chief Complaint: Seizure ED Provider: Ramez Tenorio Dx/Rx/DC Orders Clinical Impression: Breakthrough seizure, Back contusion, Laceration of tongue Instructions: ED Back Contusion, ED Laceration, All Closures, ED Seizure, Recurrent (Adult) Prescriptions: New oxycodone-acetaminophen [oxycodone-acetaminophen] 5-325 mg tablet 1 tab PO Q6H PRN PRN (Reason: Pain) 3 Days Qty: 12 0RF No Action trazodone 100 MG tablet 100 mg PO QHS lamotrigine 200 MG tablet 300 mg PO Q12H alprazolam 0.5 MG tablet 0.5 mg PO BID Primary Care Provider: Rachael Arreola Referrals: Eddy Schmidt MD [Med Staff - Active Staff] - 1-2 Weeks Rachael Arreola MD [Primary Care Provider] - 1 Week Activity Restrictions/Additional Instructions: You had a breakthrough seizure, continue your seizure medications. No driving, swimming or bathing alone, climbing heights, using heavy machinery until cleared by your neurologist as her last seizure was 2 years ago. Your head CT negative. Your thoracic CT negative for any fractures. Labs and urine were negative. You had 6, 5-0 chromic sutures placed to your tongue. Follow-up with ENT for outpatient evaluation and suture removal. Take pain medication as prescribed as needed. Disposition Disposition: Home, Self Care Discharge Date/Time: 10/13/23 21:14
[2023-10-13] MEDS: fentaNYL 100 MCG/2 ML Ampul 50 MCG IV (18:08)
[2023-10-13] MEDS: Lidocaine 1% /Epi 1:100 (20ml) 20 ML Vial INFILT (18:08)
[2023-10-13] MEDS: 0.9% Normal Saline (500mL Bag) 500 ML 1000 ML IV (18:09)
[2023-10-13 18:22] LABS: Absolute Lymphocyte Count 7.34 X10^3/uL (0.83-4.51); Absolute Neutrophil Count 5.2 X10^3/uL (2.0-7.7); Basophil# 0.14 X10^3/uL; Eosinophil# 0.14 X10^3/uL; Hemoglobin 17.3 g/dL (13.0-16.5); Lymphocyte # 7.34 X10^3/ul (0.83-4.51); Lymphocyte % 49.9 % (19-41); Mean Corp Hgb Conc 32.6 g/dL (32-36); Mean Corpuscular Hgb 30.5 pg (27.0-32.0); Mean Corpuscular Volume 93.3 fL (80-94); Mean Platelet Vol. 11.3 fl (6.2-12.0); Monocyte# 1.43 X10^3/uL; Monocyte% 9.7 % (0-10); NRBC Flagged by Analyzer 0 % (0-5); Neutrophil # 5.19 X10^3/uL (2.7-7.7); Neutrophil % 35.3 % (47-70); POSITIVE DIFFERENTIAL YES; Platelet Count 262 K/mm3 (150-450); RBC Distribution Width CV 12.7 % (11.6-14.6); RBC Distribution Width SD 43.7 fl (35.1-43.9); Red Blood Count 5.68 M/mm3 (4.6-6.2); White Blood Count 14.7 K/mm3 (4.4-11.0)
[2023-10-13 18:25] LABS: Differential Indicated SCAN CRITERIA MET
[2023-10-13 18:44] LABS: Anion Gap 13 (5-15); BUN 12 mg/dL (7-18); BUN/Creat Ratio 9.9 RATIO (10-20); Calcium,Total 9.7 mg/dL (8.5-10.1); Chloride 107 mmol/L (98-107); Creatinine, Serum 1.21 mg/dL (0.70-1.30); EST Glomerular Filtration Rate 70 mL/min (>60); Est Glom Filt Rate - Afr Amer 84 mL/min (>60); Estimated Creatinine Clearance 76.16 ml/min; Glucose 92 mg/dL (74-106); Potassium 3.5 mmol/L (3.5-5.1); Sodium Level 139 mmol/L (136-145)
[2023-10-13 18:47] LABS: Differential Comment SCANNED; Reactive Lymphocyte 1+
--- OUTSIDE RECORDS SUMMARY | 2023-10-13 18:47 | XMS RPT_ITS | CCD ---
Author Name Unknown Address [address] [place] [address] Organization [facility] Care Team Providers Care Maxillofacial Prosthodontist Name Role Phone Shari Torreica N Unavailable Steven Torressica N Unavailable Steven Torressica N Unavailable Torre, Heaven N Unavailable KENDRA JARRETT (KASI) Unavailable Unavailable KENDRA JARRETT (KASI) Unavailable Unavailable RADHA LAURENT Unavailable Unavailable RADHA LAURENT Unavailable Unavailable NO REFERRING DR Unavailable Unavailable KENDRA LAURENT Unavailable Unavailable KENDRA LAURENT Unavailable Unavailable Kendra Bo Unavailable Unavailable PROVIDER, UNKNOWN Unavailable Unavailable No, PCP Unavailable Unavailable NAKUL WALLER Unavailable Unavailable NAKUL WALLER Unavailable Unavailable NAKUL WALLER Unavailable Unavailable NAKUL WALLER Unavailable Unavailable Rell Arreola MD Primary Care Provider Rell Arreola MD Primary Care Provider Rell Arreola MD Primary Care Provider JACOBYAMPMARTELL, RELL D Primary Care Unavailable TRI GARCIA Referring Unavailable TRI GARCIA Attending Unavailable TALAMPAS, RELL Ion Primary Care Unavailable TALAMPAS, RELL D Primary Care Unavailable MIGUE ZHONG Attending Unavailable TALAMPAS, RELL D Primary Care Unavailable TALAMPAS, RELL D Attending Unavailable TALAMPAS, RELL D Primary Care Unavailable TALAMPAS, RELL D Referring Unavailable TALAMPAS, RELL D Primary Care Unavailable NAIF MAZARIEGOS Attending Unavailable TRI GARCIA Referring Unavailable TALAMPAS, RELL D Primary Care Unavailable TALAMPAS, RELL D Attending Unavailable LAZARA BAUER Referring Unavailable Allergies Allergy Classification Reported Allergen(s) Allergy Type Date of Onset Reaction(s) Facility (4 sources) penicillin v drug allergy [facility] Work Phone: (15 sources) acetaminophen / HYDROcodone; Translations: [HYDROCODONE-ACET AMINOPHEN] Drug Allergy 7 Cough [facility] Repository (15 sources) Penicillins; Translations: [PENICILLINS] Propensity to adverse reactions to drug (disorder) 5 [facility] Repository (13 sources) predniSONE; Translations: [PREDNISONE] Drug Allergy 8 Intolerance [facility] Repository Medications Current Medications Medication Drug Class(es) Dates Sig (Normalized) Sig (Original) ALPRAZolam 0.5 mg oral tablet (11 sources) Benzodiazepine Start: 12-11-2022 End: 12-11-2023 take 1 tablet by mouth twice daily ALPRAZolam (XANAX) 0.5 mg tablet Indications: Panic attacks Take 1 tablet by mouth twice daily. (From counseling center) 0 12/11/2022 12/11/2023 Active Completed/Discontinued Medications Medication Drug Class(es) Dates Sig (Normalized) Sig (Original) acetaminophen 500 mg oral tablet (7 sources) Start: 03-01-2022 take 2 tablets by mouth every six hours as needed for pain acetaminophen (TYLENOL) 500 mg tablet Indications: Acute right-sided low back pain without sciatica Take 2 tablets by mouth every 6 hours as needed for pain. 30 tablet 1 03/01/2022 Active Problems Active Problems Problem Classification Problem Date Documented Date Episodic/Chronic Alcohol-related disorders (11 sources) Moderate alcohol dependence; Translations: [Alcohol dependence, uncomplicated] Onset: 09-26-2015 09-26-2015 Chronic Anxiety disorders (20 sources) Generalized anxiety disorder; Translations: [Generalized anxiety disorder] Onset: 12-15-2012 10-08-2021 Chronic Epilepsy; convulsions (3 sources) Recurrent seizure; Translations: [Epilepsy, unspecified, not intractable, without status epilepticus] Chronic Immunizations and screening for infectious disease (1 source) Vaccination needed; Translations: [Encounter for immunization] Episodic Mood disorders (20 sources) Dysthymic disorder; Translations: [Dysthymic disorder] Onset: 09-26-2015 09-26-2015 Chronic Nutritional deficiencies (13 sources) Vitamin D deficiency; Translations: [Vitamin D deficiency, unspecified] Onset: 07-29-2016 07-29-2016 Chronic Other aftercare (1 source) Patient encounter status; Translations: [Other exterminator helper (current) drug therapy] Episodic Other connective tissue disease (1 source) Calcaneal spur of left foot; Translations: [Calcaneal spur, left foot] Episodic Other connective tissue disease (1 source) Left achilles tendonitis; Translations: [Achilles tendinitis, left leg] Episodic Other lower respiratory disease (1 source) Wheezing; Translations: [Wheezing] Episodic Other nervous system disorders (12 sources) Lesion of ulnar nerve, left upper limb; Translations: [Lesion of ulnar nerve] Onset: 07-16-2018 07-16-2018 Chronic Other nervous system disorders (1 source) Carpal tunnel syndrome, left upper limb; Translations: [Carpal tunnel syndrome, left upper limb] Onset: 05-05-2018 Chronic Other nervous system disorders (11 sources) Carpal tunnel syndrome of left wrist; Translations: [Carpal tunnel syndrome, left upper limb] Onset: 05-05-2018 05-05-2018 Chronic Other nutritional; endocrine; and metabolic disorders (11 sources) Metabolic syndrome X; Translations: [Metabolic syndrome] Onset: 05-15-2011 05-15-2011 Chronic Other nutritional; endocrine; and metabolic disorders (11 sources) Obese class I; Translations: [Obesity, unspecified] Onset: 07-30-2018 07-30-2018 Chronic Other upper respiratory disease (1 source) Seasonal allergic rhinitis; Translations: [Other seasonal allergic rhinitis] Chronic Residual codes; unclassified (1 source) Persistent insomnia; Translations: [Insomnia, unspecified] Episodic Spondylosis; intervertebral disc disorders; other back problems (4 sources) Tear of the annulus fibrosus of intervertebral disc; Translations: [Other intervertebral disc degeneration, thoracolumbar region] Onset: 08-12-2016 08-19-2016 Chronic Substance-related disorders (20 sources) Tobacco user; Translations: [Nicotine dependence, unspecified, uncomplicated] Onset: 04-26-2009 04-26-2009 Chronic Unclassified (2 sources) Unknown / UNK(Unknown) Onset: 07-09-2017 Unclassified (2 sources) Other specified postprocedural states; Translations: [Pain, unspecified] Onset: 05-04-2018 Unclassified (1 source) Acute right-sided low back pain without sciatica; Translations: [Acute right-sided low back pain without sciatica] Onset: 03-05-2022 Past or Other Problems Problem Classification Problem Date Documented Da te Episodic/Chronic Other aftercare (1 source) Other nursing home (current) drug therapy; Translations: [Encounter for long-term current use of medication] Onset: 06-13-2022 Episodic Other bone disease and musculoskeletal deformities (12 sources) Segmental and somatic dysfunction; Translations: [Segmental and somatic dysfunction of thoracic region] Onset: 08-26-2016 08-29-2016 Episodic Other connective tissue disease (4 sources) Spasm of back muscles; Translations: [Muscle spasm of back] Onset: 08-12-2016 08-19-2016 Episodic Other non-traumatic joint disorders (10 sources) Shoulder pain; Translations: [Pain in left shoulder] Onset: 03-16-2020 03-16-2020 Episodic Other non-traumatic joint disorders (1 source) Pain in left shoulder; Translations: [Pain in joint, shoulder region] Onset: 03-16-2020 03-16-2020 Episodic Other screening for suspected conditions (not mental disorders or infectious disease) (11 sources) Liver function tests abnormal; Translations: [Other specified abnormal findings of blood chemistry] Onset: 11-07-2006 05-08-2011 Episodic Residual codes; unclassified (1 source) Insomnia, unspecified; Translations: [Persistent disorder of initiating or maintaining sleep] Onset: 06-13-2022 Episodic Spondylosis; intervertebral disc disorders; other back problems (20 sources) Spinal stenosis, lumbar region; Translations: [Lumbosacral neuritis] Onset: 08-12-2016 12-16-2016 Episodic Substance-related disorders (12 sources) Drug-induced mood disorder; Translations: [Other psychoactive substance use, unspecified with psychoactive substance-induced mood disorder] Onset: 09-26-2015 09-26-2015 Episodic Results Test Name Value Interpretation Reference Range Facil ity Vital Signs Date Time Vital Sign Value Performing Clinician Facility 06-13-2022 09:34-0400 Body weight 91.63 kg Rell Arreola MD Work Phone: [facility] 06-13-2022 09:34-0400 Diastolic blood pressure 66 mm[Hg] Rell Arreola MD Work Phone: [facility] 06-13-2022 09:34-0400 Heart rate 60 /min Rell Arreola MD Work Phone: [facility] 06-13-2022 09:34-0400 Respiratory rate 14 /min Rell Arreola MD Work Phone: [facility] 06-13-2022 09:34-0400 Systolic blood pressure 112 mm[Hg] Rell Arreola MD Work Phone: [facility] 08-26-2016 14:16-0500 BMI (Body Mass Index) 33.45 kg/m2 [facility] Work Phone: 08-26-2016 14:16-0500 BP Diastolic 55 mm[Hg] [facility] Work Phone: 08-26-2016 14:16-0500 BP Systolic 175 mm[Hg] [facility] Work Phone: 08-26-2016 14:16-0500 Weight 99.79 kg [facility] Work Phone: 08-12-2016 08:44-0400 Height 172.72 cm [facility] Work Phone: Encounters Encounter Date Encounter Type Care Provider Facility Start: 04-09-2023 Jordana Zhong MD, PhD Work Phone: Neurology Procedures Date Procedure Procedure Detail Performing Clinician Start: 03-05-2022 Radex spine lumbosac ral 2/3 views Tri Garcia APRN.CNP Work Phone: Start: 09-12-2016 End: 09-12-2016 Chiropractic manipulation Leigh Hinojosa DC Work Phone: Start: 09-10-2016 End: 09-10-2016 Chiropractic manipulation Leigh Hinojosa DC Work Phone: Start: 08-29-2016 End: 08-29-2016 Chiropractic manipulation Leigh Mercer Dossi DC Work Phone: Start: 08-27-2016 End: 08-27-2016 Chiropract manj 1-2 regions Leigh Mercer Dossi DC Work Phone: Start: 08-26-2016 End: 08-26-2016 Chiropract manj 1-2 regions Leigh Mercer Dossi DC Work Phone: Plan of Treatment Date Care Activity Detail Author Start: 06-13-2027 LIPID SCREEN LIPID SCREEN [facility] Start: 06-13-2023 COVID-19 VACCINE (3 - Booster for Pfizer series) COVID-19 VACCINE (3 - Booster for Pfizer series) [facility] Immunizations Immunization Date Immunization Notes Care Provider Adelina michael 12-02-2011 tetanus toxoid, reduced diphtheria toxoid, and acellular pertussis vaccine, adsorbed Drake Stearns Work Phone: [facility] NEGATED: Highlighted row has not occurred!08-07-2022 tetanus and diphtheria toxoids, adsorbed, preservative free, for adult use (2 Lf of tetanus toxoid and 2 Lf of diphtheria toxoid) Rell Arreola MD Work Phone: [facility] Work Phone: Payers Date Payer Category [facility]ayer Medicaid [facility] [place] [id number] 2017-Present [phone] [address] [place] [address] Medicaid [id number] 2017 Medicaid [id number] 2017 Unknown [id number] Unknown Social History Date Type Detail Facility Start: 06-13-2022 [facility] History of tobacco use Cigarette Smoker C [facility] Start: 01-09-2022 End: 12-11-2022 Alcohol intake Current drinker of alcohol (finding) [facility] Start: 01-09-2022 End: 12-11-2022 Alcohol intake [facility] Start: 05-22-2020 End: 12-11-2022 History SDOH Alcohol Frequency 2 [facility] Start: 05-22-2020 End: 12-11-2022 History SDOH Alcohol Std Drinks 1 [facility] Start: 03-07-2020 End: 12-11-2022 History SDOH Social Connections Living 7 [facility] Start: 03-07-2020 History SDOH Physica l Activity MPS 6 [facility] Start: 03-07-2020 End: 12-11-2022 History SDOH Stress 5 [facility] Start: 03-07-2020 End: 12-11-2022 History SDOH Financial 3 [facility] Start: 03-07-2020 Education 21 [facility] Start: 1980 Sex Assigned At Not on file [facility] Start: 12-30-2021 End: 03-07-2022 Exposure to SARS-CoV-2 (event) Not sure [facility] Start: 06-13-2022 Tobacco use and exposure Smoke less tobacco non-user [facility] Clinical Notes 09-26-2015 to 04-09-2023 Telephone Encounter - Brandy Hearn APRN.CNP - 04/09/2023 12:19 PM EDTTelephone Encounter - Maxine Doherty - 04/09/2023 11:13 AM EDTTelephone Encounter - Akilah Shi LPN - 12/12/2022 2:47 PM EST Note Date & Type Note Facility 04-09-2023 Miscellaneous Notes The following approved medication requests have been transmitted electronically. Requested Prescriptions Signed Prescriptions Disp Refills lamoTRIgine (LAMICTAL) 150 mg tablet 360 tablet 0 Sig: Take 2 tablets by mouth twice daily. Need appointment, call [phone] to schedule Authorizing Provider: BRANDY HEARN APRN.CNP Prescription Refill: Requested by: pharmacy Please E-Scribe Caller Contact Number: [facility] Number: [phone] Generic/ brand: 30 or 90 day supply requested: 90 Last appointment: 02/26/22 Next Appointment: none; sent to schedulers Patient of Dr. Zhong documented in this encounter [facility] 12-12-2022 Miscellaneous Notes Spoke to the patient, he is going to explore other options at this time. Did request to be added to wait list. Patient needs approved for behavioral health. No provider name was specified documented in this encounter [facility] 12-11-2022 Note HNO ID: [id number] Author: Rell Arreola MD Service: ? Author Type: Physician Type: Progress Notes Filed: 01/13/2023 12:30 AM Note Text: This note was created using Fanchimpriter. Subjective Can Brown is a 42 year old male. Patient presents with: Established Patient: Follow up SUBJECTIVE: Can Brown is a 42 year old year old gentleman here today for follow up appointment for review of medical conditions. [facility] provider but the other person left. 2 new provider. Used to see someone at but they left too. Cough and chest congestion the past week. Mucinex bought today. PAST MEDICAL HISTORY Diagnosis Date Cannabis use disorder, mild, abuse 03/04/2019 noted per counseling center Depressive disorder, not elsewhere classified DVT (deep venous thrombosis) (HCC) after ankle surgery Dysmetabolic syndrome X 05/15/2011 Esophageal reflux 12/09/2007 Generalized anxiety disorder Anxiety, Generalized BLAIRE (Obstructive Sleep Apnea) 09/18/2009 Tobacco use disorder 04/26/2009 Current Outpatient Medications Medication Sig traZODone (DESYREL) 150 mg tablet Take 1 tablet by mouth daily at bedtime. desvenlafaxine ER (PRISTIQ) 25 mg 24 hr tablet Take 25 mg by mouth once daily. loratadine (CLARITIN) 10 mg tablet Take 1 tablet by mouth once daily. As directed acetaminophen (TYLENOL) 500 mg tablet Take 2 tablets by mouth every 6 hours as needed for pain. lamoTRIgine (LAMICTAL) 150 mg tablet Take 2 tablets by mouth twice daily. ALPRAZolam (XANAX) 0.5 mg tablet Take 1 tablet by mouth twice daily. (From [facility]) hydrOXYzine HCl (ATARAX) 25 mg tablet Take 25 mg by mouth daily at bedtime. No current facility-administered medications for this visit. Review of Systems Objective BP 118/76 Pulse 71 Temp 36.2 ?C (97.2 ?F) Resp 18 Wt 93.4 kg (206 lb) SpO2 99% BMI 31.32 kg/m? Physical Exam Vitals reviewed. Constitutional: Appearance: Normal appearance. Eyes: Conjunctiva/sclera: Conjunctivae normal. Cardiovascular: Rate and Rhythm: Normal rate and regular rhythm. Heart sounds: Normal heart sounds. Pulmonary: Effort: Pulmonary effort is normal. Breath sounds: Normal breath sounds. Skin: General: Skin is warm and dry. Neurological: General: No focal deficit present. Mental Status: He is alert and oriented to person, place, and time. Psychiatric: Mood and Affect: Mood normal. Behavior: Behavior normal. Thought Content: Thought content normal. Judgment: Judgment normal. Assessment and Plan Encounter Diagnosis ICD-10-CM 1. Panic attacks F41.0 CONSULT TO PRIMARY CARE BEHAVIORAL HEALTH ADULT ALPRAZolam (XANAX) 0.5 mg tablet 2. Moderate episode of recurrent major depressive disorder (HCC) F33.1 CONSULT TO PRIMARY CARE BEHAVIORAL HEALTH ADULT 3. Mild intermittent asthmatic bronchitis with acute exacerbation J45.21 albuterol HFA (PROVENTIL HFA, VENTOLIN HFA) 90 mcg/actuation inhaler Inhalational Spacing Device 4. Vitamin D deficiency E55.9 Cholecalciferol, Vitamin D3, 50 mcg (2,000 unit) cap Above issues addressed with patient. Patient involved in shared decision making for management of medical issues. History and medications reviewed. Epic updated as needed Refills and/or prescriptions taken care of and meds adjusted as indicated after reviewed history, exam and labs. Health Maintenance reviewed. Updated record and/or ordered tests as recorded. Encouraged on efforts at healthy diet and regular exercise and adequate sleep. Rell Arreola MD [facility] 12-11-2022 Miscellaneous Notes Behavioral Health Social Work Progress Note Patient identified for [facility] from: PCP Reason for referral: Resources Behavioral Health Resources: Psychiatry med management, Psychology - talk therapy [facility] encounter type: Telephone Encounter, eMarketerhart Message Attempts to Outreach: 1 attempt Referral made: Psychiatry - Internal, Psychiatry - External, Psychology - External Psychiatry-Internal referral type: Medication Management Psychology-External referral type: Therapy Psychiatry-External referral type: Medication Management Reason for external referral: Wait times at [facility] too long Final Disposition: Resources given Patient Discharged?: Yes Patient reported that caregiver was able to meet their needs today?: Yes SW placed telephone call at the request of the PCP to discuss behavioral health needs and provide referrals for outpatient support. Patient is [facility], but states that he has been in and out of there for the last 15 years and is in need of a change . Would prefer the [facility] for psychiatry and counseling. Discussed that the current [facility] will be out of the office until June, is able to be on a wait list or be scheduled for that time. Patient also used to see a [facility] provider in the resident clinic several years back. Will also send additional providers to his [facility] for review: [facility] Psychiatry and Counseling Central Scheduling Call Center [phone] [facility] [address] [place] [address] [facility] [address] [place], [place] [id number] *counseling and psychiatry [facility] [address] [place] [id number] *counseling and psychiatry [place] [id number] [facility] [place] [id number] *counseling and psychiatry [facility] [address] [place], [place] [phone] *counseling and psychiatry [address] [phone] *counseling and psychiatry documented in this encounter [facility] 06-18-2022 Note HNO ID: [id number] Author: Naif Mazariegos PT Service: ? Author Type: Physical Therapist Type: Progress Notes Filed: 06/18/2022 4:24 PM Note Text: 06/18/2022 [facility] PHYSICAL THERAPY DISCONTINUANCE OF CARE Plan of Care Period: Start of Care Date: 03/13/22 Last Visit Date: 03/13/2022 Therapy Program: Patient did not return for follow up care as planned. Please refer to last visit note for interventions provided for this episode of care. Assessment: Unable to formally assess goal achievement. Reason for Discontinuation of Care: Patient has not returned to therapy or scheduled additional follow-up appointments. Naif Mazariegos, NICO[facility] 06-13-2022 Note HNO ID: [id number] Author: Rell Arreola MD Service: ? Author Type: Physician Type: Progress Notes Filed: 08/07/2022 8:33 PM Note Text: This note was created using Fanchimpriter. Subjective Can Brown is a 41 year old male. Patient presents with: 6 Month Exam SUBJECTIVE: Can Brown is a 41 year old year old gentleman here today for 6 month follow up appointment for review of medical conditions. Back pain is better though not able to complete PT. Did get exercises to do. Follows yearly with Dr. Zhong. [facility]en [facility]22[facility] Starting counseling. First appointment soon. Xanax and Lybalvi and trazodone per [facility]. Not sleeping as well as would like to--working on that with hum Goes to bed 12 to 12:30 but up around 2:30 to 4 and not able to get back to sleep. Takes hours to fall back to sleep around 6 or 7. Sleeps till 8 to 10AM. Yard work for exercise. Smaller portions and cutting out bread and other processed foods. Shoulder issues noted since had seizure and landed on shoulder. Bother at night. Noted increased wheezes lately. Noted more in summer. Has not noted being SOB. Some mucus in throat sometimes. Increased allergies as gotten older. Runny nose and sneezing and cough. PAST MEDICAL HISTORY Diagnosis Date Cannabis use disorder, mild, abuse 03/04/2019 noted per counseling center Depressive disorder, not elsewhere classified DVT (deep venous thrombosis) (HCC) after ankle surgery Dysmetabolic syndrome X 05/15/2011 Esophageal reflux 12/09/2007 Generalized anxiety disorder Anxiety, Generalized BLAIRE (Obstructive Sleep Apnea) 09/18/2009 Tobacco use disorder 04/26/2009 Current Outpatient Medications Medication Sig REXULTI 3 mg tablet Take 3 mg by mouth once daily. acetaminophen (TYLENOL) 500 mg tablet Take 2 tablets by mouth every 6 hours as needed for pain. lamoTRIgine (LAMICTAL) 150 mg tablet Take 2 tablets by mouth twice daily. ALPRAZolam (XANAX) 1 mg tablet Take 1 mg by mouth twice daily. traZODone (DESYREL) 150 mg tablet Take 1 tablet by mouth daily at bedtime. desvenlafaxine ER (PRISTIQ) 25 mg 24 hr tablet Take 25 mg by mouth once daily. methocarbamol (ROBAXIN) 750 mg tablet Take 1 tablet by mouth four times daily. No current facility-administered medications for this visit. Review of Systems Objective BP 112/66 Pulse 60 Resp 14 Wt 91.6 kg (202 lb) BMI 30.71 kg/m? Last 5 Encounter Wt Readings: Date: Wt: 06/13/2022 91.6 kg (202 lb) 11/06/2021 93.9 kg (207 lb) 12/28/2020 94.3 kg (208 lb) 05/04/2020 95.3 kg (210 lb) 12/20/2019 96.6 kg (213 lb) No waist measurement recorded Estimated body mass index is 30.71 kg/m? as calculated from the following: Height as of 05/04/20: 172.7 cm (5' 8 ). Weight as of this encounter: 91.6 kg (202 lb). Last 5 Encounter BP Readings: Date: BP: 06/13/2022 112/66 11/06/2021 106/60 12/28/2020 124/62 03/16/2020 106/78 12/20/2019 120/90 Physical Exam Vitals reviewed. Constitutional: Appearance: Normal appearance. Eyes: Conjunctiva/sclera: Conjunctivae normal. Cardiovascular: Rate and Rhythm: Normal rate and regular rhythm. Heart sounds: Normal heart sounds. Pulmonary: Effort: Pulmonary effort is normal. Breath sounds: Wheezing (scattered posteriorly; increased with forced expirations.) present. Skin: General: Skin is warm and dry. Neurological: General: No focal deficit present. Mental Status: He is alert and oriented to person, place, and time. Psychiatric: Mood and Affect: Mood normal. Behavior: Behavior normal. Thought Content: Thought content normal. Judgment: Judgment normal. Assessment and Plan ASSESSMENT/PLAN: 1. Wheezing - ICD9: 786.07, ICD10: R06.2 (primary diagnosis) Discussed management 2. Tobacco use disorder - ICD9: 305.1, ICD10: F17.200 - Cessation encouraged. - Physiologic and physical aspects of tobacco addiction as well as strategies for quitting were discussed. 3. Seasonal allergic rhinitis, unspecified trigger - ICD9: 477.9, ICD10: J30.2 Continue present management. Further evaluation and treatment as indicated. 4. Substance induced mood disorder (HCC) - ICD9: 292.84, ICD10: F19.94 - TRAZODONE 150 MG TABLET 5. Encounter for long-term current use of medication - ICD9: V58.69, ICD10: Z79.899 - COMP METABOLIC PANEL - CBC - LIPID PANEL, NONFASTING - TSH BLD - LAMOTRIGINE 6. Vitamin D deficiency - ICD9: 268.9, ICD10: E55.9 - VITAMIN D 25 HYDROXY 7. Mild episode of recurrent major depressive disorder (HCC) - ICD9: 296.31, ICD10: F33.0 Management as discussed. - COMP METABOLIC PANEL - CBC - LIPID PANEL, NONFASTING - TSH BLD - LAMOTRIGINE - VITAMIN D 25 HYDROXY 8. Persistent disorder of initiating or maintaining sleep - ICD9: 307.42, ICD10: G47.00 - COMP METABOLIC PANEL - CBC - LIPID PANEL, NONFASTING - TSH BLD - LAMOTRIGINE - VITAMIN D 25 HYDROXY 9. (more content not included)... [facility] History of Presen t illness Narrative This note was created using [email or web address]. Subjective Can Brown is a 41 year old male. Patient presents with: 6 Month Exam SUBJECTIVE: Can Brown is a 41 year old year old gentleman here today for 6 month follow up appointment for review of medical conditions. Back pain is better though not able to complete PT. Did get exercises to do. Follows yearly with Dr. Zhong. Seen February 2022. [facility] Starting counseling. First appointment soon. Xanax and Lybalvi and trazodone per [facility]. Not sleeping as well as would like to--working on that with hum Goes to bed 12 to 12:30 but up around 2:30 to 4 and not able to get back to sleep. Takes hours to fall back to sleep around 6 or 7. Sleeps till 8 to 10AM. Yard work for exercise. Smaller portions and cutting out bread and other processed foods. Shoulder issues noted since had seizure and landed on shoulder. Bother at night. Noted increased wheezes lately. Noted more in summer. Has not noted being SOB. Some mucus in throat sometimes. Increased allergies as gotten older. Runny nose and sneezing and cough. PAST MEDICAL HISTORY Diagnosis Date Cannabis use disorder, mild, abuse 03/04/2019 noted per counseling center Depressive disorder, not elsewhere classified DVT (deep venous thrombosis) ([facility]) after ankle surgery Dysmetabolic syndrome X 05/15/2011 Esophageal reflux 12/09/2007 Generalized anxiety disorder Anxiety, Generalized BLAIRE (Obstructive Sleep Apnea) 09/18/2009 Tobacco use disorder 04/26/2009 Current Outpatient Medications Medication Sig REXULTI 3 mg tablet Take 3 mg by mouth once daily. acetaminophen (TYLENOL) 500 mg tablet Take 2 tablets by mouth every 6 hours as needed for pain. lamoTRIgine (LAMICTAL) 150 mg tablet Take 2 tablets by mouth twice daily. ALPRAZolam (XANAX) 1 mg tablet Take 1 mg by mouth twice daily. traZODone (DESYREL) 150 mg tablet Take 1 tablet by mouth daily at bedtime. desvenlafaxine ER (PRISTIQ) 25 mg 24 hr tablet Take 25 mg by mouth once daily. methocarbamol (ROBAXIN) 750 mg tablet Take 1 tablet by mouth four times daily. No current facility-administered medications for this visit. Review of Systems Objective BP 112/66 Pulse 60 Resp 14 Wt 91.6 kg (202 lb) BMI 30.71 kg/m Last 5 Encounter Wt Readings: Date: Wt: 06/13/2022 91.6 kg (202 lb) 11/06/2021 93.9 kg (207 lb) 12/28/2020 94.3 kg (208 lb) 05/04/2020 95.3 kg (210 lb) 12/20/2019 96.6 kg (213 lb) No waist measurement recorded Estimated body mass index is 30.71 kg/m as calculated from the following: Height as of 05/04/20: 172.7 cm (5' 8 ). Weight as of this encounter: 91.6 kg (202 lb). Last 5 Encounter BP Readings: Date: BP: 06/13/2022 112/66 11/06/2021 106/60 12/28/2020 124/62 03/16/2020 106/78 12/20/2019 120/90 Physical Exam Vitals reviewed. Constitutional: Appearance: Normal appearance. Eyes: Conjunctiva/sclera: Conjunctivae normal. Cardiovascular: Rate and Rhythm: Normal rate and regular rhythm. Heart sounds: Normal heart sounds. Pulmonary: Effort: Pulmonary effort is normal. Breath sounds: Wheezing (scattered posteriorly; increased with forced expirations.) present. Skin: General: Skin is warm and dry. Neurological: General: No focal deficit present. Mental Status: He is alert and oriented to person, place, and time. Psychiatric: Mood and Affect: Mood normal. Behavior: Behavior normal. Thought Content: Thought content normal. Judgment: Judgment normal. Assessment and Plan ASSESSMENT/PLAN: 1. Wheezing - ICD9: 786.07, ICD10: R06.2 (primary diagnosis) Discussed management 2. Tobacco use disorder - ICD9: 305.1, ICD10: F17.200 - Cessation encouraged. - Physiologic and physical aspects of tobacco addiction as well as strategies for quitting were discussed. 3. Seasonal allergic rhinitis, unspecified trigger - ICD9: 477.9, ICD10: J30.2 Continue present management. Further evaluation and treatment as indicated. 4. Substance induced mood disorder (HCC) - ICD9: 292.84, ICD10: F19.94 - TRAZODONE 150 MG TABLET 5. Encounter for long-term current use of medication - ICD9: V58.69, ICD10: Z79.899 - COMP METABOLIC PANEL - CBC - LIPID PANEL, NONFASTING - TSH BLD - LAMOTRIGINE 6. Vitamin D deficiency - ICD9: 268.9, ICD10: E55.9 - VITAMIN D 25 HYDROXY 7. Mild episode of recurrent major depressive disorder (HCC) - ICD9: 296.31, ICD10: F33.0 Management as discussed. - COMP METABOLIC PANEL - CBC - LIPID PANEL, NONFASTING - TSH BLD - LAMOTRIGINE - VITAMIN D 25 HYDROXY 8. Persistent disorder of initiating or maintaining sleep - ICD9: 307.42, ICD10: G47.00 - COMP METABOLIC PANEL - CBC - LIPID PANEL, NONFASTING - TSH BLD - LAMOTRIGINE - VITAMIN D 25 HYDROXY 9. Need for vaccination - ICD9: V05.9, ICD10: Z23 - TETANUS/DIPTHERIA BOOSTER (OVER 7), ADSORBED IM Rell Arreola MD documented in this encounter [facility] 03-13-2022 Note HNO ID: [id number] Author: Naif Mazariegos PT Service: ? Author Type: Physical Therapist Type: Progress Notes Filed: 03/13/2022 1:01 PM Note Text: Episode Visit Count: 1 Therapist That Will Oversee The Plan Of Care: Naif Mazariegos Start of Care Date: 03/13/22 Onset Date: 12/02/19 Plan of Care Certification Date: 03/13/22 Next Certification Due Date: 05/13/22 Patient Identified by Name and Date of : Yes REHABILITATION AND SPORTS THERAPY PHYSICAL THERAPY EVALUATION PLAN OF CARE: Assessment: Can Brown presents with chief complaint of low back pain with B sciatica that interferes with standing;walking;bending;heavy exertion;lifting;physical activities;recreational activities;working . He presents with impairments in ADL's, gait, independence in exercise, overall function, range of motion, strength and tissue tenderness. PROMIS? (Patient-Reported Outcomes Measurement Information System) scores were reviewed and all domains identified as a rehabilitation concern. Prognosis for therapy is Fair due to: clinical presentation;multiple co- morbidities;limited tolerance to activity;occupational demands . He will benefit from skilled therapy services to meet the goals established for this plan of care as noted below. Classification Low Back Pain Subgroup Classification: Core stabilization subgroup: recommended visits 10. Core Stabilization Subgroup Classification based on: catching/giving way;segmental hinging;aberrant movements;history of locking/catching;pain with transitional movements Goals for Episode of Care: created on 03/13/22 through 05/13/22 Independent in home exercises. Patient will decrease pain rating by 2 points to meet minimal clinical important difference for numeric pain rating scale. Restore pain-free lumbar ROM to minimal limitations to allow for improved functional mobility. Stand / Walk as needed for ADLs without pain/symptoms. Patient will increase strength of trunk/core to 4+/5 to allow for improve ability to complete ADLs. Planned Interventions, Frequency, and Duration: Current Frequency: 1x/week Duration: 12 weeks Total Number of Visits Planned: 12 Planned Treatment Interventions: Therapeutic exercise (71344);Neuromuscular re-education (47901);Manual therapy (55409);Therapeutic activities (57183);Self-prison management (99247);Patient/Family/Caregiver Education;Body Mechanics Training PLAN FOR NEXT VISIT: assess carry over of HEP, may need further evaluation if symptoms are still flared or changed. Patient demonstrates good understanding of plan of care and treatment. The above goals and plan of care were discussed and agreed upon by patient/family. SUBJECTIVE: Can Brown is a 41 year old male seen today for LBP x a week when chainsawing overhead. 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 Pain is now constly down the right leg, with some intermittent symptoms into the left side as well, but long history of a disc bulge on the left Functional Limitations: standing;walking;bending;heavy exertion;lifting;physical activities;recreational activities;working Prior Level of Function: Independent without limitations Intake Information: Prescription present Red Flags Vertebral Fracture Clinical Reasoning: No identified risk factors Abdominal Aortic Aneurysm Clinical Reasoning: No identified risk factors. Cancer Clinical Reasoning: No identified risk factors. Infection Clinical Reasoning: No identified risk factors. Cauda Equina Syndrome Clinical Reasoning: No identified risk factors. Red Flags - Cervical Cancer Clinical Reasoning: No identified risk factors. Infection Clinical Reasoning: No identified risk factors. Pain: Pain Pain Level: 9 Pain Location: Back Description: Sharp;Shooting;Burning Frequency: Continuous Post Treatment Pain Post Treatment Pain Level: No Change PROMIS Scales Higher is Better 06/13/2020 06/17/2021 02/26/2022 Phys Func - Score - 38 (moderate dysfunction) - Phys Func - Percentile - 12 % - Social Roles - Score - 38 (moderate dysfunction) - Social Role - Percentile - 12 % - GH Physical - Score 50.8 37.4 (Fair) 44.9 (Good) GH Physical - Percentile 53 % 10 % 31 % GH Mental - Score 41.1 28.4 (Poor) 28.4 (Poor) GH Mental - Percentile 19 % 2 % 2 % Self-Eff Symptom - Score - 32 (Low) - Self-Eff Symptom - Percentile - 4 % - T-scores: mean of general population = 50. 5 points is clinically meaningfully difference Percentiles provide an indication of how the patient's score ranks in relation to the general population. Higher percentile rankings indicate better function/quality of life. 50th percentile is the average of the general population and indicates half of respondents had a worse score. Lower is Better 12/03/2019 06/17/2021 Fatigue - Score 59 (mild) 51 (within normal limits) Fatigue - Percentile 18 % 46 % T-scores: mean of general popul (more content not included)... [facility] 03-13[facility] History of Presen t illness Narrative Episode Visit Count: 1 Therapist That Will Oversee The Plan Of Care: Naif Mazariegos Start of Care Date: 03/13/22 Onset Date: 12/02/19 Plan of Care Certification Date: 03/13/22 Next Certification Due Date: 05/13/22 Patient Identified by Name and Date of : Yes REHABILITATION AND SPORTS THERAPY PHYSICAL THERAPY EVALUATION PLAN OF CARE: Assessment: Can Brown presents with chief complaint of low back pain with B sciatica that interferes with standing;walking;bending;heavy exertion;lifting;physical activities;recreational activities;working . He presents with impairments in ADL's, gait, independence in exercise, overall function, range of motion, strength and tissue tenderness. PROMIS (Patient-Reported Outcomes Measurement Information System) scores were reviewed and all domains identified as a rehabilitation concern. Prognosis for therapy is Fair due to: clinical presentation;multiple co- morbidities;limited tolerance to activity;occupational demands . He will benefit from skilled therapy services to meet the goals established for this plan of care as noted below. Classification Low Back Pain Subgroup Classification: Core stabilization subgroup: recommended visits 10. Core Stabilization Subgroup Classification based on: catching/giving way;segmental hinging;aberrant movements;history of locking/catching;pain with transitional movements Goals for Episode of Care: created on 03/13/22 through 05/13/22 Independent in home exercises. Patient will decrease pain rating by 2 points to meet minimal clinical important difference for numeric pain rating scale. Restore pain-free lumbar ROM to minimal limitations to allow for improved functional mobility. Stand / Walk as needed for ADLs without pain/symptoms. Patient will increase strength of trunk/core to 4+/5 to allow for improve ability to complete ADLs. Planned Interventions, Frequency, and Duration: Current Frequency: 1x/week Duration: 12 weeks Total Number of Visits Planned: 12 Planned Treatment Interventions: Therapeutic exercise (72045);Neuromuscular re-education (07539);Manual therapy (33172);Therapeutic activities (51254);Self-prison management (30598);Patient/Family/Caregiver Education;Body Mechanics Training PLAN FOR NEXT VISIT: assess carry over of HEP, may need further evaluation if symptoms are still flared or changed. Patient demonstrates good understanding of plan of care and treatment. The above goals and plan of care were discussed and agreed upon by patient/family. SUBJECTIVE: Can Brown is a 41 year old male seen today for LBP x a week when chainsawing overhead. 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 Pain is now constly down the right leg, with some intermittent symptoms into the left side as well, but long history of a disc bulge on the left Functional Limitations: standing;walking;bending;heavy exertion;lifting;physical activities;recreational activities;working Prior Level of Function: Independent without limitations Intake Information: Prescription present Red Flags Vertebral Fracture Clinical Reasoning: No identified risk factors Abdominal Aortic Aneurysm Clinical Reasoning: No identified risk factors. Cancer Clinical Reasoning: No identified risk factors. Infection Clinical Reasoning: No identified risk factors. Cauda Equina Syndrome Clinical Reasoning: No identified risk factors. Red Flags - Cervical Cancer Clinical Reasoning: No identified risk factors. Infection Clinical Reasoning: No identified risk factors. Pain: Pain Pain Level: 9 Pain Location: Back Description: Sharp;Shooting;Burning Frequency: Continuous Post Treatment Pain Post Treatment Pain Level: No Change PROMIS Scales Higher is Better 06/13/2020 06/17/2021 02/26/2022 Phys Func - Score - 38 (moderate dysfunction) - Phys Func - Percentile - 12 % - Social Roles - Score - 38 (moderate dysfunction) - Social Role - Percentile - 12 % - GH Physical - Score 50.8 37.4 (Fair) 44.9 (Good) GH Physical - Percentile 53 % 10 % 31 % GH Mental - Score 41.1 28.4 (Poor) 28.4 (Poor) GH Mental - Percentile 19 % 2 % 2 % Self-Eff Symptom - Score - 32 (Low) - Self-Eff Symptom - Percentile - 4 % - T-scores: mean of general population = 50. 5 points is clinically meaningfully difference Percentiles provide an indication of how the patient's score ranks in relation to the general population. Higher percentile rankings indicate better function/quality of life. 50th percentile is the average of the general population and indicates half of respondents had a worse score. Lower is Better 12/03/2019 06/17/2021 Fatigue - Score 59 (mild) 51 (within normal limits) Fatigue - Percentile 18 % 46 % T-scores: mean of general population = 50. 5 points is clinically meaningfully difference Percentiles provide an indication of how the patient's score ranks in relation to the general population. Higher percentile rankings indicate better function/quality of life. 50th percentile is the average of the general population and indicates half of respondents had a worse score. OBJECTIVE MEASURES WITH LEVEL OF FUNCTION: Lumbar Spine AROM Lumbar Flexion: Major limitation Lumbar Extension: Major limitation Lumbar R Side-Bend: Major limitation Lumbar L Side-Bend: Major limitation Lumbar R Rotation: Moderate limitation Lumbar L Rotation: Moderate limitataion Repeated Test Movements - Lumbar RFIS - Symptoms During: increases RFIS - Symptoms After: worse;peripheralized AURORA - Symptoms During: increases AURORA - Symptoms After: worse;peripheralized RFIL - Symptoms During: increases RFIL - Symptoms After: worse REIL - Symptoms During: increases;peripheralizing LE Strength Trunk Strength: 3/5 grossly R LE Strength: 3+/5 grossly due to pain L LE Strength: 3+/5 grossly due to pain Special Tests - Hip and Spine Hip and Spine Special Tests: Slump Test;SLR Test SLR Test: Right Positive;Left Positive Slump Test: Right Positive;Left Positive Education: Education Learning/educational needs: Home exercise program;Changes in Plan of Care;Plan of Care;Posture;Body Mechanics TREATMENT: PT Treatment Interventions: Therapeutic Exercise;Manual Therapy Evaluation Therapeutic Exercise: 1: *SKC 3x30 sec/side 2: *DKC 3x30 sec/side 3: *PPT 3x10, 5 sec holds 4: *Cat and cow in tolerable range 3x10 1-2 sec hold each end range 5: Attempted multiple prone lying exercises, ceased due to increased radicular symptoms Skilled Intervention: Patient was educated in proper exercise technique and purpose for exercises. Skilled judgment was provided in selection of appropriate interventions. Provided written instruction for home exercise program to facilitate proper performance and compliance. Correct performance of therapeutic exercises was facilitated with verbal, visual and tactile cuing. Manual Therapy: 1: Manual lumbar traction multiple ways x8 min total (ceased each way due to increased pain) Skilled Intervention: Manual skills to improve joint mobility, ROM, and decrease pain. Utilized anatomy knowledge of the therapist, and assessment of patient's response to intervention. Billing * Evaluation Low Complexity: 1 Unit Therapeutic Exercise Treatment Minutes: 20 Manual TherapyTreatment Minutes: 8 Total Treatment Time Minutes (timed/untimed): 50 Naif Mazariegos PT documented in this encounter [facility] 03-05-2022 Instructions Tri Garcia APRN.NOA - 03/05/2022 8:09 PM EDT Take 800mg Ibuprofen every 8 hrs with food try muscle relaxer methocarbamol- do NOT drive or operate machinery while taking. This medication may make you drowsy. documented in this encounter [facility] 03-05-2022 Note HNO ID: [id number] Author: RT Darren(R) Service: Nuclear Medicine Author Type: Technologist Type: Progress Notes Filed: 03/05/2022 3:26 PM Note Text: Radiology Service Progress Note PATIENT NAME: Can Brown DATE OF SERVICE: March 05, 2022 TIME: 3:15 PM PATIENT IDENTITY VERIFICATION COMPLETED USING TWO (2) IDENTIFIERS: Name and Date of confirmed by patient verbally. FALL SCREENING: Has the patient had 2 falls in the last year or 1 fall with injury or currently using an Ambulatory Assistive Device (Walker, Cane, Wheelchair, Crutches, etc.)? No PATIENT GENDER DATA: Male PATIENT RELEVANT IMPLANT DATA REVIEWED: Not Applicable RADIOLOGY DEPARTMENT: General X-ray: Exam(s) Completed: Spine X-Ray(s): Lumbar AP / LAT / L5-S1 PERIPHERAL IV DATA: Not applicable SIGNED BY: RT Darren(R) March 05, 2022 3:26 PM [facility] 03-05-2022 History of Presen t illness Narrative Radiology Service Progress Note PATIENT NAME: Can Brown DATE OF SERVICE: March 05, 2022 TIME: 3:15 PM PATIENT IDENTITY VERIFICATION COMPLETED USING TWO (2) IDENTIFIERS: Name and Date of confirmed by patient verbally. FALL SCREENING: Has the patient had 2 falls in the last year or 1 fall with injury or currently using an Ambulatory Assistive Device (Walker, Cane, Wheelchair, Crutches, etc.)? No PATIENT GENDER DATA: Male PATIENT RELEVANT IMPLANT DATA REVIEWED: Not Applicable RADIOLOGY DEPARTMENT: General X-ray: Exam(s) Completed: Spine X-Ray(s): Lumbar AP / LAT / L5-S1 PERIPHERAL IV DATA: Not applicable SIGNED BY: RT Darren(R) March 05, 2022 3:26 PM documented in this encounter [facility] 03-01-2022 Note HNO ID: [id number] Author: Tri Garcia APRN.FACILITIES MAINTENANCE ENGINEER Service: ? Author Type: Nurse Practitioner Type: Progress Notes Filed: 03/05/2022 8:12 PM Note Text: Telemedicine Visit - Distance Health Virtual Visit Note Patient seen on [employer] video visit platform. Location of patient: [place] Rell Arreola MD History of Present Illness Can Brown is a 41 year old year old male who presents for the past last Friday doing yard work, now is having back pain right side worse than left was using a chainsaw over head has tried ice no fevers, no chills bowels and bladder function is ok taking tylenol using meloxicam from podiatry for bone spur but not much improvement some radiation of pain down left leg but this is chronic PAST MEDICAL HISTORY Diagnosis Date - Cannabis use disorder, mild, abuse 03/04/2019 noted per counseling center - Depressive disorder, not elsewhere classified - DVT (deep venous thrombosis) (HCC) after ankle surgery - Dysmetabolic syndrome X 05/15/2011 - Esophageal reflux 12/09/2007 - Generalized anxiety disorder Anxiety, Generalized - BLAIRE (Obstructive Sleep Apnea) 09/18/2009 - Tobacco use disorder 04/26/2009 PAST SURGICAL HISTORY Procedure Laterality Date - APPENDECTOMY 1997 - NEUROPLASTY AND/TRANSPOS MEDIAN NRV CARPAL TUNNE Left 05/12/2018 Carpal tunnel decomp - PAST SURGICAL HISTORY OF 2002 Right Ankle - Pins - PAST SURGICAL HISTORY OF Left 07/30/2018 left cubital tunnel release FAMILY HISTORY Problem Relation Age of Onset - Heart Mother Brain Tumor (non cancerous), Skin Cancers, Open Heart - Coronary Artery Disease Mother - Heart Father - Hypertension Father - other (Anxiety/Depression) Sister Social History Tobacco Use - Smoking status: Current Every Day Smoker Packs/day: 1.00 Years: 20.00 Pack years: 20.00 Types: Cigarettes - Smokeless tobacco: Never Used Vaping Use - Vaping Use: Never used Substance Use Topics - Alcohol use: Yes Alcohol/week: 15.0 standard drinks Types: 6 Cans of Beer (12oz) per week Comment: beer weekend socially - Drug use: Yes Types: Marijuana Comment: [facility] - socially Current Outpatient Medications Medication Sig - lamoTRIgine (LAMICTAL) 150 mg tablet Take 2 tablets by mouth twice daily. - ALPRAZolam (XANAX) 1 mg tablet Take 1 mg by mouth twice daily. - traZODone (DESYREL) 100 mg tablet Take 1 tablet by mouth daily at bedtime. - cariprazine (VRAYLAR) 1.5 mg capsule Take 2 capsules by mouth once daily. - varenicline (CHANTIX) 0.5 mg tablet Days 1 to 3: 0.5 mg take once daily. Days 4 to 7: 0.5 mg take twice daily. (Patient not taking: Reported on 01/09/2022 ) - varenicline (CHANTIX) 1 mg tablet Take 1 tablet by mouth twice daily. starting day and 8 and continue for 11 weeks (Patient not taking: Reported on 01/09/2022 ) No current facility-administered medications for this visit. ALLERGIES Allergen Reactions - Penicillins throat swelling - Prednisone Intolerance joint pain - Vicodin [Hydrocodon* Cough chestpain Video Exam (Examination performed via Video enabled technology) General: well-hydrated, well nourished and appears tired Skin: no rash noted Head: normocephalic, no abnormality or lesion noted Eyes: no injection and visual acuity is grossly normal Ears: hearing grossly normal Nose: external nose normal without rhinorrhea Oropharynx: moist mucus membranes Neck: neck ROM intact Respiratory: breathing non-labored Chest: equal chest rise with normal respiratory effort Back: ROM decreased because of pain Neurologic: no obvious deficit and gait limited d/t pain ASSESSMENT/PLAN: 1. Acute right-sided low back pain without sciatica - ICD9: 724.2, ICD10: M54.50 - XR LUMBAR GENERAL 3V AP/LAT/L5-S1 - ACETAMINOPHEN 500 MG TABLET - IBUPROFEN 800 MG TABLET - METHOCARBAMOL 750 MG TABLET - CONSULT TO PHYSICAL THERAPY red flags discussed Tri Garcia APRN.FACILITIES MAINTENANCE ENGINEER If you let us know who your primary care provider is, we will send them a notification of today's visit through our electronic medical records system. Since not all providers have access to our notifications, we strongly encourage you to share the following record of today's visit with your primary care provider at your next visit. This will help in providing you the best care. If you do not have an established Primary Care physician and would like to continue care with a [facility] Virtual Primary Care physician, please ask your provider to place a Establish Primary Care order. Use Orbiter to manage your care, wherever you are, 05/05, on your mobile device or computer. Orbiter connects you to [facility] so you can access all your health information in one place and also schedule and request virtual appointments with primary care providers. [facility] 03-01-2022 History of Presen t illness Narrative Telemedicine Visit - Distance Health Virtual Visit Note Patient seen on Privepass video visit platform. Location of patient: [place] Rell Arreola MD History of Present Illness Cna Brown is a 41 year old year old male who presents for the past last Friday doing yard work, now is having back pain right side worse than left was using a chainsaw over head has tried ice no fevers, no chills bowels and bladder function is ok taking tylenol using meloxicam from podiatry for bone spur but not much improvement some radiation of pain down left leg but this is chronic PAST MEDICAL HISTORY Diagnosis Date Cannabis use disorder, mild, abuse 03/04/2019 noted per counseling center Depressive disorder, not elsewhere classified DVT (deep venous thrombosis) (HCC) after ankle surgery Dysmetabolic syndrome X 05/15/2011 Esophageal reflux 12/09/2007 Generalized anxiety disorder Anxiety, Generalized BLAIRE (Obstructive Sleep Apnea) 09/18/2009 Tobacco use disorder 04/26/2009 PAST SURGICAL HISTORY Procedure Laterality Date APPENDECTOMY 1997 NEUROPLASTY &/TRANSPOS MEDIAN NRV CARPAL TUNNE Left 05/12/2018 Carpal tunnel decomp PAST SURGICAL HISTORY OF 2002 Right Ankle - Pins PAST SURGICAL HISTORY OF Left 07/30/2018 left cubital tunnel release FAMILY HISTORY Problem Relation Age of Onset Heart Mother Brain Tumor (non cancerous), Skin Cancers, Open Heart Coronary Artery Disease Mother Heart Father Hypertension Father other (Anxiety/Depression) Sister Social History Tobacco Use Smoking status: Current Every Day Smoker Packs/day: 1.00 Years: 20.00 Pack years: 20.00 Types: Cigarettes Smokeless tobacco: Never Used Vaping Use Vaping Use: Never used Substance Use Topics Alcohol use: Yes Alcohol/week: 15.0 standard drinks Types: 6 Cans of Beer (12oz) per week Comment: beer weekends socially Drug use: Yes Types: Marijuana Comment: [facility] - socially Current Outpatient Medications Medication Sig lamoTRIgine (LAMICTAL) 150 mg tablet Take 2 tablets by mouth twice daily. ALPRAZolam (XANAX) 1 mg tablet Take 1 mg by mouth twice daily. traZODone (DESYREL) 100 mg tablet Take 1 tablet by mouth daily at bedtime. cariprazine (VRAYLAR) 1.5 mg capsule Take 2 capsules by mouth once daily. varenicline (CHANTIX) 0.5 mg tablet Days 1 to 3: 0.5 mg take once daily. Days 4 to 7: 0.5 mg take twice daily. (Patient not taking: Reported on 01/09/2022 ) varenicline (CHANTIX) 1 mg tablet Take 1 tablet by mouth twice daily. starting day and 8 and continue for 11 weeks (Patient not taking: Reported on 01/09/2022 ) No current facility-administered medications for this visit. ALLERGIES Allergen Reactions Penicillins throat swelling Prednisone Intolerance joint pain Vicodin [Hydrocodon* Cough chestpain Video Exam (Examination performed via Video enabled technology) General: well-hydrated, well nourished and appears tired Skin: no rash noted Head: normocephalic, no abnormality or lesion noted Eyes: no injection and visual acuity is grossly normal Ears: hearing grossly normal Nose: external nose normal without rhinorrhea Oropharynx: moist mucus membranes Neck: neck ROM intact Respiratory: breathing non-labored Chest: equal chest rise with normal respiratory effort Back: ROM decreased because of pain Neurologic: no obvious deficit and gait limited d/t pain ASSESSMENT/PLAN: 1. Acute right-sided low back pain without sciatica - ICD9: 724.2, ICD10: M54.50 - XR LUMBAR GENERAL 3V AP/LAT/L5-S1 - ACETAMINOPHEN 500 MG TABLET - IBUPROFEN 800 MG TABLET - METHOCARBAMOL 750 MG TABLET - CONSULT TO PHYSICAL THERAPY red flags discussed Tri Garcia APRN.CNP If you let us know who your primary care provider is, we will send them a notification of today's visit through our electronic medical records system. Since not all providers have access to our notifications, we strongly encourage you to share the following record of today's visit with your primary care provider at your next visit. This will help in providing you the best care. If you do not have an established Primary Care physician and would like to continue care with a [facility] Virtual Primary Care physician, please ask your provider to place a Establish Primary Care order. Use Orbiter to manage your care, wherever you are, 05/05, on your mobile device or computer. Orbiter connects you to [employer] so you can access all your health information in one place and also schedule and request virtual appointments with primary care providers. documented in this encounter [facility] 02-26-2022 Note HNO ID: [id number] Author: Migue Zhong MD, PhD Service: ? Author Type: Physician Type: Progress Notes Filed: 02/26/2022 2:33 PM Note Text: .[facility] Patient Name: Can Brown Date of : 1980 CLINIC NOTE - FOLLOW UP VISIT virtual visit CHIEF COMPLAINT: follow up PRESENT ILLNESS: This is a 41 year old right-handed male who has history of bipolar disorder and anxiety (has psychiatrist), and he has No family history of seizure, no history of head injuries, no history of meningitis or encephalitis. The first seizure occurred 10 pm on 12/08/2019. No auras or warning. His mother heard noises and found him convulsing on the floor, the convulsion lasted a few minutes, +tongue biting, no urinary incontinence. Postictal headache and convulsion. In the ER he received Morphine for pain (shoulder and back pain from the seizure). His 2nd seizure occurred 2nd week of December,. Seizure occurred at 4pm, no auras, no warnings. He fell down and had a witnessed convulsion of a couple minutes. No tongue biting. No triggers for seizures, no use of ETOH, or drugs. No sleep deprivation. He had brain MRI w/wo 11/16/2019: unremarkable .He completed EEG at [facility] on 01/03/2020 with a normal results. He has bipolar disorder, and was on Lamotrigie 200 mg am. At telemedicine visit on 12/31/2019, his Lamotrigitne was planned to increased to 200 mg bid, then 300 mg bid based on Lamotrigine level. At virtual visit on 02/26/2022: on Lamotrigine 300 mg bid No seizures The last seizure was december 2019 He does not work He drives He has psychiatrist follow up for bipolar disorder. At telemedicine visit on 02/14/2020: Patient's visit was conducted using a telemedicine encounter. Patient identified by name and . Received consent from the patient to continue with a telephone visit. He has been on Lamotrigine 200 mg bid. No side effects. Tolerate well. He has not had any more episode. He has followed up with psychiatrist for bipolar and anxiety. Job: no Driving: not yet, because seizure. SEIZURE DESCRIPTION: No auras, Witnessed convulsion PRIOR ANTICONVULSANT HISTORY: Topamax (for headache); Lamotrine (for bipolar) Following AEDs were associated with side effects: did not feel well on Topamax. PREVIOUS EVALUATIONS: EEG: [facility] 01/04/2020: Brain MRI W/WO 11/16/2019: unremarkable PAST MEDICAL HISTORY: PAST MEDICAL HISTORY Diagnosis Date - Cannabis use disorder, mild, abuse 03/04/2019 noted per counseling center - Depressive disorder, not elsewhere classified - DVT (deep venous thrombosis) ([facility]) after ankle surgery - Dysmetabolic syndrome X 05/15/2011 - Esophageal reflux 12/09/2007 - Generalized anxiety disorder Anxiety, Generalized - BLAIRE (Obstructive Sleep Apnea) 09/18/2009 - Tobacco use disorder 04/26/2009 No past medical history pertinent negatives. PAST SURGICAL HISTORY: PAST SURGICAL HISTORY Procedure Laterality Date - APPENDECTOMY 1997 - NEUROPLASTY AND/TRANSPOS MEDIAN NRV CARPAL TUNNE Left 05/12/2018 Carpal tunnel decomp - PAST SURGICAL HISTORY OF 2002 Right Ankle - Pins - PAST SURGICAL HISTORY OF Left 07/30/2018 left cubital tunnel release FAMILY MEDICAL HISTORY: FAMILY HISTORY Problem Relation Age of Onset - Heart Mother Brain Tumor (non cancerous), Skin Cancers, Open Heart - Coronary Artery Disease Mother - Heart Father - Hypertension Father - other (Anxiety/Depression) Sister SOCIAL HISTORY: Social History Tobacco Use - Smoking status: Current Every Day Smoker Packs/day: 1.00 Years: 20.00 Pack years: 20.00 Types: Cigarettes - Smokeless tobacco: Never Used Vaping Use - Vaping Use: Never used Substance Use Topics - Alcohol use: Yes Alcohol/week: 15.0 standard drinks Types: 6 Cans of Beer (12oz) per week Comment: beer weekends socially - Drug use: Yes Types: Marijuana Comment: [employer] - socially OTHER RELEVANT LABS AND TEST: Routine EEG 01/03/2020: normal IMPRESSION: The patient with bipolar disorder and anxiety experienced 2 convulsions without aura in Nov and December of 2019. Has been taking Latmorigine 300 mg bid without seizure recurrence. He also has bipolar disorder and has a psycghiatrist PLAN: Continue Lamtorigine 300 mg bid for now Refilled for a year Time for this visit 8 minutes Follow up 1 yr Migue Zhong MD PhD Staff, [facility] [place], [place] cc: Primary Care Physician: Rell Arreola MD [id number] [facility] [address] Referring Physician: Cee Zepeda RN MSN NEUROPSYCHOLOGIST.FACILITIES MAINTENANCE ENGINEER [id number] [facility] [id number] Mr. Can Brown [address] [facility] [address] [facility] 02-26-2022 History of Presen t illness Narrative .[facility] Patient Name: Can Brown Date of : 1980 CLINIC NOTE - FOLLOW UP VISIT virtual visit CHIEF COMPLAINT: follow up PRESENT ILLNESS: This is a 41 year old right-handed male who has history of bipolar disorder and anxiety (has psychiatrist), and he has No family history of seizure, no history of head injuries, no history of meningitis or encephalitis. The first seizure occurred 10 pm on 12/08/2019. No auras or warning. His mother heard noises and found him convulsing on the floor, the convulsion lasted a few minutes, +tongue biting, no urinary incontinence. Postictal headache and convulsion. In the ER he received Morphine for pain (shoulder and back pain from the seizure). His 2nd seizure occurred 2nd week of December,. Seizure occurred at 4pm, no auras, no warnings. He fell down and had a witnessed convulsion of a couple minutes. No tongue biting. No triggers for seizures, no use of ETOH, or drugs. No sleep deprivation. He had brain MRI w/wo 11/16/2019: unremarkable .He completed EEG at [facility] on 01/03/2020 with a normal results. He has bipolar disorder, and was on Lamotrigie 200 mg am. At telemedicine visit on 12/31/2019, his Lamotrigitne was planned to increased to 200 mg bid, then 300 mg bid based on Lamotrigine level. At virtual visit on 02/26/2022: on Lamotrigine 300 mg bid No seizures The last seizure was december 2019 He does not work He drives He has psychiatrist follow up for bipolar disorder. At telemedicine visit on 02/14/2020: Patient's visit was conducted using a telemedicine encounter. Patient identified by name and . Received consent from the patient to continue with a telephone visit. He has been on Lamotrigine 200 mg bid. No side effects. Tolerate well. He has not had any more episode. He has followed up with psychiatrist for bipolar and anxiety. Job: no Driving: not yet, because seizure. SEIZURE DESCRIPTION: No auras, Witnessed convulsion PRIOR ANTICONVULSANT HISTORY: Topamax (for headache); Lamotrine (for bipolar) Following AEDs were associated with side effects: did not feel well on Topamax. PREVIOUS EVALUATIONS: EEG: [facility] 01/04/2020: Brain MRI W/WO 11/16/2019: unremarkable PAST MEDICAL HISTORY: PAST MEDICAL HISTORY Diagnosis Date Cannabis use disorder, mild, abuse 03/04/2019 noted per counseling center Depressive disorder, not elsewhere classified DVT (deep venous thrombosis) (HCC) after ankle surgery Dysmetabolic syndrome X 05/15/2011 Esophageal reflux 12/09/2007 Generalized anxiety disorder Anxiety, Generalized BLAIRE (Obstructive Sleep Apnea) 09/18/2009 Tobacco use disorder 04/26/2009 No past medical history pertinent negatives. PAST SURGICAL HISTORY: PAST SURGICAL HISTORY Procedure Laterality Date APPENDECTOMY 1997 NEUROPLASTY &/TRANSPOS MEDIAN NRV CARPAL TUNNE Left 05/12/2018 Carpal tunnel decomp PAST SURGICAL HISTORY OF 2002 Right Ankle - Pins PAST SURGICAL HISTORY OF Left 07/30/2018 left cubital tunnel release FAMILY MEDICAL HISTORY: FAMILY HISTORY Problem Relation Age of Onset Heart Mother Brain Tumor (non cancerous), Skin Cancers, Open Heart Coronary Artery Disease Mother Heart Father Hypertension Father other (Anxiety/Depression) Sister SOCIAL HISTORY: Social History Tobacco Use Smoking status: Current Every Day Smoker Packs/day: 1.00 Years: 20.00 Pack years: 20.00 Types: Cigarettes Smokeless tobacco: Never Used Vaping Use Vaping Use: Never used Substance Use Topics Alcohol use: Yes Alcohol/week: 15.0 standard drinks Types: 6 Cans of Beer (12oz) per week Comment: beer weekend socially Drug use: Yes Types: Marijuana Comment: [employer] - socially OTHER RELEVANT LABS AND TEST: Routine EEG 01/03/2020: normal IMPRESSION: The patient with bipolar disorder and anxiety experienced 2 convulsions without aura in Nov and December of 2019. Has been taking Latmorigine 300 mg bid without seizure recurrence. He also has bipolar disorder and has a psycghiatrist PLAN: Continue Lamtorigine 300 mg bid for now Refilled for a year Time for this visit 8 minutes Follow up 1 yr Migue Zhong MD PhD Staff, [facility] [place], [place] cc: Primary Care Physician: Rell Arreola MD [address] [facility] [address] Referring Physician: Cee Zepeda RN MSN NEUROPSYCHOLOGIST.FACILITIES MAINTENANCE ENGINEER [address] [facility] [address] Mr. Can Brown [address] [facility] [address] documented in this encounter [facility] 02-12-2022 Miscellaneous Notes Sent yesterday in separate encounter Brandy Hearn APRN.CNP documented in this encounter [facility] 02-11-2022 Miscellaneous Notes The following approved medication requests have been transmitted electronically. Signed Prescriptions Disp Refills lamoTRIgine (LAMICTAL) 150 mg tablet 120 tablet 0 Sig: Take 2 tablets by mouth twice daily. CASSIE: No Authorizing Provider: BRANDY HEARN APRN.CNP Prescription Refill: Requested by: pharmacy Please E-Scribe Caller Contact Number: Pharmacy Name: [facility] Number: [phone] Generic/ brand: generic 30 or 90 day supply requested: 90 Last appointment: 10/11/2020 Next Appointment: 02/26/[address] Zhong documented in this encounter [facility] 01-09-2022 History of Presen t illness Narrative Follow up podiatric office visit for: Chief Complaint: This 41 year old who presents for follow up:left heel spur Patient presents to clinic for follow-up left heel spur. Patient continues to have pain in the back of his left heel. Patient states the pain has become worse over the past month but on day of exam, the pain is tolerable. Patient continues to take tylenol for the pain. Patient is here to possibly receive more anti-inflammatory medication. Patient continues to smoke 1 pack of cigarettes/day. PAIN EVALUATION 01/09/2022 1035 Pain Level: 4 Pain Location: Foot-Left Description: Stabbing/Not Incision Duration Amount of Time: 1 Duration Units: Months Frequency: Intermittent Intervention/Comfort measure: Medication;Relaxation Hemoglobin A1C Date Value Ref Range Status 06/11/2017 5.4 4.3 - 5.6 % Final PCP: Rell Arreola MD PAST MEDICAL HISTORY Diagnosis Date Cannabis use disorder, mild, abuse 03/04/2019 noted per counseling center Depressive disorder, not elsewhere classified DVT (deep venous thrombosis) (HCC) after ankle surgery Dysmetabolic syndrome X 05/15/2011 Esophageal reflux 12/09/2007 Generalized anxiety disorder Anxiety, Generalized BLAIRE (Obstructive Sleep Apnea) 09/18/2009 Tobacco use disorder 04/26/2009 Current Outpatient Medications Medication Sig ALPRAZolam (XANAX) 1 mg tablet Take 1 mg by mouth twice daily. traZODone (DESYREL) 100 mg tablet Take 1 tablet by mouth daily at bedtime. cariprazine (VRAYLAR) 1.5 mg capsule Take 2 capsules by mouth once daily. lamoTRIgine (LAMICTAL) 150 mg tablet Take 2 tablets by mouth twice daily. varenicline (CHANTIX) 0.5 mg tablet Days 1 to 3: 0.5 mg take once daily. Days 4 to 7: 0.5 mg take twice daily. (Patient not taking: Reported on 01/09/2022 ) varenicline (CHANTIX) 1 mg tablet Take 1 tablet by mouth twice daily. starting day and 8 and continue for 11 weeks (Patient not taking: Reported on 01/09/2022 ) No current facility-administered medications for this visit. ALLERGIES Allergen Reactions Penicillins throat swelling Prednisone Intolerance joint pain Vicodin [Hydrocodon* Cough chestpain PAST SURGICAL HISTORY Procedure Laterality Date APPENDECTOMY 1998 NEUROPLASTY &/TRANSPOS MEDIAN NRV CARPAL TUNNE Left 05/12/2018 Carpal tunnel decomp PAST SURGICAL HISTORY OF 2002 Right Ankle - Pins PAST SURGICAL HISTORY OF Left 07/30/2018 left cubital tunnel release Physical Exam: Constitutional: Pt is a well developed 41 year old male who is alert, oriented, cooperative and in no apparent distress. OBJECTIVE: NVSI unchanged from previous visit. Dermatological: No open sores noted to left foot. Musculoskeletal/Orthopaedic: Patient has pain to palpation of left posterior lateral heel. He does have small posterior heel spur ASSESSMENT: (M77.32) Calcaneal spur of foot, left (primary encounter diagnosis) (M76.62) Tendonitis, Achilles, left PLAN: Discussed posterior heel spur. Discussed conservative care not limited to padding, stretching, nsaids. Surgical options are available if he were to stop smoking. Patient not interested in surgery due to recovery. mobic ordered. Take as needed But not to exceed once daily Drake Stearns DPM AMB ROOMING INTAKE FLOWSHEET DATA Pain Pain Level: 4 Pain Location: Foot-Left Description: Stabbing/Not Incision Duration Amount of Time: 1 Duration Units: Months Frequency: Intermittent Intervention/Comfort measure: Medication, Relaxation Patient presents with: Left Foot - Pain, Established Patient documented in this encounter [facility] documented as of this encounter (statuses as of 01/09/2022) [facility] History of Past illness Narrative* Problem Noted Date Resolved Date Major depressive disorder, r ecurrent, severe without psychotic features 09/26/2015 10/28/2016 BLAIRE (obstructive sleep apnea) 09/18/2009 Esophageal reflux 12/09/2007 10/30/2010 Depressive disorder, not elsewhere classified 10/28/2016 Overview: 12/2012- Referral to Counseling Center, release signed. Intake diagnoses: Depression. Symptoms of mood swings, anger, panic attacks, progressive symptoms. Sent to ED on 12/19 and sent for inpatient treatment the care of . Partial records scanned. documented as of this encounter (statuses as of 02/11/2022) [facility] History of Past illness Narrative* Problem Noted Date Resolved Date Major depressive disorder, r ecurrent, severe without psychotic features 09/26/2015 10/28/2016 BLAIRE (obstructive sleep apnea) 09/18/2009 Esophageal reflux 12/09/2007 10/30/2010 Depressive disorder, not elsewhere classified 10/28/2016 Overview: 12/2012- Referral to Counseling Center, release signed. Intake diagnoses: Depression. Symptoms of mood swings, anger, panic attacks, progressive symptoms. Sent to ED on 12/19 and sent for inpatient treatment the care of . Partial records scanned. documented as of this encounter (statuses as of 02/12/2022) [facility] History of Past illness Narrative* Problem Noted Date Resolved Date Major depressive disorder, r ecurrent, severe without psychotic features 09/26/2015 10/28/2016 BLAIRE (obstructive sleep apnea) 09/18/2009 Esophageal reflux 12/09/2007 10/30/2010 Depressive disorder, not elsewhere classified 10/28/2016 Overview: 12/2012- Referral to Counseling Center, release signed. Intake diagnoses: Depression. Symptoms of mood swings, anger, panic attacks, progressive symptoms. Sent to ED on 12/19 and sent for inpatient treatment the care of . Partial records scanned. documented as of this encounter (statuses as of 02/26/2022) [facility] History of Past illness Narrative* Problem Noted Date Resolved Date Major depressive disorder, r ecurrent, severe without psychotic features 09/26/2015 10/28/2016 BLAIRE (obstructive sleep apnea) 09/18/2009 Esophageal reflux 12/09/2007 10/30/2010 Depressive disorder, not elsewhere classified 10/28/2016 Overview: 12/2012- Referral to Counseling Center, release signed. Intake diagnoses: Depression. Symptoms of mood swings, anger, panic attacks, progressive symptoms. Sent to ED on 12/19 and sent for inpatient treatment the care of . Partial records scanned. documented as of this encounter (statuses as of 03/06/2022) [facility] History of Past illness Narrative* Problem Noted Date Resolved Date Major depressive disorder, r ecurrent, severe without psychotic features 09/26/2015 10/28/2016 BLAIRE (obstructive sleep apnea) 09/18/2009 Esophageal reflux 12/09/2007 10/30/2010 Depressive disorder, not elsewhere classified 10/28/2016 Overview: 12/2012- Referral to Counseling Center, release signed. Intake diagnoses: Depression. Symptoms of mood swings, anger, panic attacks, progressive symptoms. Sent to ED on 12/19 and sent for inpatient treatment the care of . Partial records scanned. documented as of this encounter (statuses as of 03/06/2022) [facility] History of Past illness Narrative* Problem Noted Date Resolved Date Major depressive disorder, r ecurrent, severe without psychotic features 09/26/2015 10/28/2016 BLAIRE (obstructive sleep apnea) 09/18/2009 Esophageal reflux 12/09/2007 10/30/2010 Depressive disorder, not elsewhere classified 10/28/2016 Overview: 12/2012- Referral to Counseling Center, release signed. Intake diagnoses: Depression. Symptoms of mood swings, anger, panic attacks, progressive symptoms. Sent to ED on 12/19 and sent for inpatient treatment the care of . Partial records scanned. documented as of this encounter (statuses as of 03/13/2022) [facility] History of Past illness Narrative* Problem Noted Date Resolved Date Major depressive disorder, r ecurrent, severe without psychotic features 09/26/2015 10/28/2016 BLAIRE (obstructive sleep apnea) 09/18/2009 Esophageal reflux 12/09/2007 10/30/2010 Depressive disorder, not elsewhere classified 10/28/2016 Overview: 12/2012- Referral to Counseling Center, release signed. Intake diagnoses: Depression. Symptoms of mood swings, anger, panic attacks, progressive symptoms. Sent to ED on 12/19 and sent for inpatient treatment the care of . Partial records scanned. documented as of this encounter (statuses as of 08/08/2022) [facility] History of Past illness Narrative* Problem Noted Date Resolved Date Major depressive disorder, r ecurrent, severe without psychotic features 09/26/2015 10/28/2016 BLAIRE (obstructive sleep apnea) 09/18/2009 Esophageal reflux 12/09/2007 10/30/2010 Depressive disorder, not elsewhere classified 10/28/2016 Overview: 12/2012- [facility]erral to [facility], release signed. Intake diagnoses: Depression. Symptoms of mood swings, anger, panic attacks, progressive symptoms. Sent to ED on 12/19 and sent for inpatient treatment the care of . Partial records scanned. documented as of this encounter (statuses as of 12/12/2022) [facility] History of Past illness Narrative* Problem Noted Date Resolved Date Major depressive disorder, r ecurrent, severe without psychotic features 09/26/2015 10/28/2016 BLAIRE (obstructive sleep apnea) 09/18/2009 Esophageal reflux 12/09/2007 10/30/2010 Depressive disorder, not elsewhere classified 10/28/2016 Overview: 12/2012- Referral to [facility], release signed. Intake diagnoses: Depression. Symptoms of mood swings, anger, panic attacks, progressive symptoms. Sent to ED on 12/19 and sent for inpatient treatment the care of . Partial records scanned. documented as of this encounter (statuses as of 12/12/2022) [facility] History of Past illness Narrative* Problem Noted Date Resolved Date Major depressive disorder, r ecurrent, severe without psychotic features 09/26/2015 10/28/2016 BLAIRE (obstructive sleep apnea) 09/18/2009 Esophageal reflux 12/09/2007 10/30/2010 Depressive disorder, not elsewhere classified 10/28/2016 Overview: 12/2012- Referral to [facility], release signed. Intake diagnoses: Depression. Symptoms of mood swings, anger, panic attacks, progressive symptoms. Sent to ED on 12/19 and sent for inpatient treatment the care of . Partial records scanned. documented as of this encounter (statuses as of 04/09/2023) [facility] Calcaneal spur of foot, left- Primary Tendonitis, Achilles, left Achilles bursitis or tendinitis [facility] Recurrent seizures (HCC) Other forms of epilepsy and recurrent seizures without mention of intractable epilepsy [facility] Recurrent seizures (HCC) Other forms of epilepsy and recurrent seizures without mention of intractable epilepsy [facility] Diagnosis Acute right-sided low back pain without sciatica- Primary [facility] Diagnosis Acute right-sided low back pain without sciatica [facility] Diagnosis Acute bilateral low back pain with bilateral sciatica- Primary [facility] Diagnosis Wheezing- Primary Tobacco use disorder Seasonal allergic rhinitis, unspecified trigger Substance induced mood disorder (HCC) Drug-induced mood disorder Encounter for long-term current use of medication Vitamin D deficiency Unspecified vitamin D deficiency Mild episode of recurrent major depressive disorder (HCC) Persistent disorder of initiating or maintaining sleep Need for vaccination Need for prophylactic vaccination and inoculation against unspecified single disease documented in this encounter [facility] note* Diagnosis Recurrent seizures (HCC) Other forms of epilepsy and recurrent seizures without mention of intractable epilepsy documented in this encounter [facility] for referral (narrative)* Diagnostic Procedure Only (Routine) - Closed Specialty Diagnoses / Procedures Referred By Contac t Referred To Contact XR IMAGING Diagnoses Acute right-sided low back pain without sciatica Procedures XR LUMBAR GENERAL 3V AP/LAT/L5-S1 RADEX SPINE LUMBOSACRAL 2/3 VIEWS Tri Garcia APRN.FACILITIES MAINTENANCE ENGINEER [address] [place] [address] Xr Imaging Referral ID Status Reason Start Date Expiration Date V isits Requested Visits Authorized [id number] Closed Auto-Generate d Referral 03/01/2022 03/31/2023 1 1 [facility] for visit Narrative* Diagnostic Procedure Only (Routine) - Closed Specialty Diagnoses / Procedures Referred By Contac t Referred To Contact XR IMAGING Diagnoses Acute right-sided low back pain without sciatica Procedures XR LUMBAR GENERAL 3V AP/LAT/L5-S1 RADEX SPINE LUMBOSACRAL 2/3 VIEWS Tri Garcia APRN.FACILITIES MAINTENANCE ENGINEER [address] [place] [address] Xr Imaging Referral ID Status Reason Start Date Expiration Date V isits Requested Visits Authorized [id number] Closed Auto-Generate d Referral 03/01/2022 03/31/2023 1 1 [facility] Summary Purpose Family History No Family History Records FoundNo Family History Records FoundNo Family History Records FoundNo Family History Records FoundNo Family History Records FoundNo Family History Records FoundNo Family History Records Found Advance Directives Documents on File Type Date Recorded Patient Enterprise Architect Expl anation Advance Directive(s) 07/30/2018 8:34 AM Advance Directive(s) 05/12/2018 11:26 AM Advance Directive(s) 05/04/2018 2:09 PM Advance Directive(s) 01/31/2018 11:16 AM Documents on File Type Date Recorded Patient Enterprise Architect Expl anation Advance Directive(s) 07/30/2018 8:34 AM Advance Directive(s) 05/12/2018 11:26 AM Advance Directive(s) 05/04/2018 2:09 PM Advance Directive(s) 01/31/2018 11:16 AM Procedure Findings Note HNO ID: [id number]: Hayes Mckeon: Orthopaedic SurgeryAuthor Type: PhysicianType: Brief Op NoteFiled: 05/12/2018 2:09 PMNote Text:BRIEF OPERATIVE / PROCEDURE NOTELOG ID: [id number]/PROCEDURE DATE: 05/12/2018INCISION/PROCEDURE START TIME: 1:36 PMINCISION CLOSE/PROCEDURE END TIME: 1:57 PMSURGEON(S)/PROCEDURALIST(S) AND SCRAP DEALER(S):Surgeon(s) and Role: * Nakul Waller - Linda Additional StaffSURGERY/PROCEDURE(S): left hand carpal tunnel releaseANESTHESIA: Block BierFINDINGS: compression median nerve left hand carpal canalESTIMATED BLOOD LOSS: 0 mlSPECIMENS: NoneCOMPLICATIONS: NonePRE-OP/PRE-PROCEDURE DIAGNOSIS: left carpal tunnel syndromePOST-OP/POST-PROCEDURE DIAGNOSIS: sameSIGNATURE: Nakul Waller MD PATIENT NAME: Can Valladares: May 12, 2018 : 2:08 PM PAGER/CONTACT #: Note HNO ID: [id number]: Hayes Mckeon: Orthopaedic SurgeryAuthor Type: PhysicianType: Brief Op NoteFiled: 07/30/2018 8:45 AMNote Text:BRIEF OPERATIVE / PROCEDURE NOTELOG ID: [id number]/PROCEDURE DATE: 07/30/2018INCISION/PROCEDURE START TIME: 7:54 AMINCISION CLOSE/PROCEDURE END TIME: 8:30 AMSURGEON(S)/PROCEDURALIST(S) AND SCRAP DEALER(S):Surgeon(s) and Role: * Nakul Waller - PrimaryRegistered Nurse Acute Care Nurse: Esthela (Rn) PETRONA eRdURGERY/PROCEDURE(S): left cubital tunnel release ( ulnar nervedecompression )ANESTHESIA: GeneralFINDINGS: compression ulnar nerve at cubital tunnelESTIMATED BLOOD LOSS: 0 mlSPECIMENS: NoneCOMPLICATIONS: NonePRE-OP/PRE-PROCEDURE DIAGNOSIS: cubital tunnel left elbowPOST-OP/POST-PROCEDURE DIAGNOSIS: Cubital tunnel syndrome on left ElbowSIGNATURE: Nakul Waller MD PATIENT NAME: Can BrownDATE: July 30, 2018 : 8:43 AM PAGER/CONTACT #: Reason for Referral Specialty Diagnoses / Procedures Referred By Contac t Referred To Contact [facility] Diagnoses Acute right-sided low back pain without sciatica Procedures CONSULT TO PHYSICAL THERAPY PHYSICAL THERAPY EVALUATION HIGH COMPLEX 45 MINS Tri Garcia NEUROPSYCHOLOGIST.FACILITIES MAINTENANCE ENGINEER [address] [place] [address] [facility] [place] [address] [place] [address] Referral ID Status Reason Start Date Expiration Date Visits Requested Visits Authorized [id number] Authorized Auto-Generat ed Referral 10/13/2021 10/12/2022 1 1 Specialty Diagnoses / Procedures Referred By Contac t Referred To Contact XR IMAGING Diagnoses Acute right-sided low back pain without sciatica Procedures XR LUMBAR GENERAL 3V AP/LAT/L5-S1 RADEX SPINE LUMBOSACRAL 2/3 VIEWS Tri Garcia NEUROPSYCHOLOGIST.FACILITIES MAINTENANCE ENGINEER [address] [place] [address] Xr Imaging Referral ID Status Reason Start Date Expiration Date V isits Requested Visits Authorized [id number] Closed Auto-Generate d Referral 03/01/2022 03/31/2023 1 1 Specialty Diagnoses / Procedures Referred By Contac t Referred To Contact [facility] Diagnoses Acute bilateral low back pain with bilateral sciatica Procedures PT REHAB FOLLOW UP ORDER PT REHAB FOLLOW UP ORDER THERAPEUTIC EXERCISES RE, EA 15 MIN. Naif Mazariegos, PT [facility] [place] [address] [place] [address] Referral ID Status Reason Start Date Expiration Date Visits Requested Visits Authorized [id number] Pending Review PCP Requested Referral Auto-Generate d Referral 03/13/2022 06/11/2022 1 1 Additional Source Comments (unrecognized sect ion and content) No Status Records FoundNo Status Records FoundNo Status Records FoundNo Status Records FoundNo Status Records FoundNo Status Records FoundNo Status Records Found INFORMATION SOURCE (unrecogn ized section and content) DATE CREATED AUTHOR AUTHOR'S ORGANIZ ATION 04/08/2018 [facility] DATE CREATED AUTHOR AUTHOR'S ORGANIZ ATION 04/08/2018 [facility] DATE CREATED AUTHOR AUTHOR'S ORGANIZ ATION 04/21/2018 [facility] DATE CREATED AUTHOR AUTHOR'S ORGANIZ ATION 08/31/2018 [facility] DATE CREATED AUTHOR AUTHOR'S ORGANIZ ATION 06/04/2019 [facility] DATE CREATED AUTHOR AUTHOR'S ORGANIZ ATION 01/15/2023 [facility] Source Comments (unrecognize d section and content) In the event this informatio n is protected by the Federal Confidentiality of Alcohol and Drug Abuse Patient Records regulations: The Federal rules restrict any use of the information to criminally investigate or prosecute any alcohol or drug abuse patient.[facility] Center[facility] the event this information is protected by the Federal Confidentiality of Alcohol and Drug Abuse Patient Records regulations: The Federal rules restrict any use of the information to criminally investigate or prosecute any alcohol or drug abuse patient.[facility] Center[facility] the event this information is protected by the Federal Confidentiality of Alcohol and Drug Abuse Patient Records regulations: The Federal rules restrict any use of the information to criminally investigate or prosecute any alcohol or drug abuse patient.[facility] Center[facility] the event this information is protected by the Federal Confidentiality of Alcohol and Drug Abuse Patient Records regulations: The Federal rules restrict any use of the information to criminally investigate or prosecute any alcohol or drug abuse patient.[facility] Center[facility] the event this information is protected by the Federal Confidentiality of Alcohol and Drug Abuse Patient Records regulations: The Federal rules restrict any use of the information to criminally investigate or prosecute any alcohol or drug abuse patient.[facility] CenterIn the event this information is protected by the Federal Confidentiality of Alcohol and Drug Abuse Patient Records regulations: The Federal rules restrict any use of the information to criminally investigate or prosecute any alcohol or drug abuse patient.[facility] CenterIn the event this information is protected by the Federal Confidentiality of Alcohol and Drug Abuse Patient Records regulations: The Federal rules restrict any use of the information to criminally investigate or prosecute any alcohol or drug abuse patient.[facility] CenterIn the event this information is protected by the Federal Confidentiality of Alcohol and Drug Abuse Patient Records regulations: The Federal rules restrict any use of the information to criminally investigate or prosecute any alcohol or drug abuse patient.[facility] CenterIn the event this information is protected by the Federal Confidentiality of Alcohol and Drug Abuse Patient Records regulations: The Federal rules restrict any use of the information to criminally investigate or prosecute any alcohol or drug abuse patient.[facility] CenterIn the event this information is protected by the Federal Confidentiality of Alcohol and Drug Abuse Patient Records regulations: The Federal rules restrict any use of the information to criminally investigate or prosecute any alcohol or drug abuse patient.[facility] CenterIn the event this information is protected by the Federal Confidentiality of Alcohol and Drug Abuse Patient Records regulations: The Federal rules restrict any use of the information to criminally investigate or prosecute any alcohol or drug abuse patient.[facility] Reason for Visit (unrecogniz ed section and content) Reason Onset Date Comments Refill Request 02/11/2022 Reason Comments Follow Up Reason Comments Back Pain Reason Comments PT Eval Specialty Diagnoses / Procedures Referred By Contac t Referred To Contact [facility] Diagnoses Acute right-sided low back pain without sciatica Procedures CONSULT TO PHYSICAL THERAPY PHYSICAL THERAPY EVALUATION HIGH COMPLEX 45 MINS Tri Garcia, NEUROPSYCHOLOGIST.FACILITIES MAINTENANCE ENGINEER [address] [place] [address] [facility] [address] [place] [address] Referral ID Status Reason Start Date Expiration Date V isits Requested Visits Authorized [id number] Closed Auto-Generate d Referral 10/13/2021 10/12/2022 1 1 Reason Comments 6 Month Exam Reason Comments Behavioral Health Social Work Reason Comments Appointment Reason Onset Date Comments Refill Request 04/09/2023 Care Teams (unrecognized sec tion and content) Maxillofacial Prosthodontist Relationship Specialty Start Date End Date Rell Arreola MD [address] [place], [place] [id number] PCP - General Internal Medicine 03/13/18 Maxillofacial Prosthodontist Relationship Specialty Start Date End Date Rell Arreola MD [address] [place], [place] [id number] PCP - General Internal Medicine 03/13/18 Maxillofacial Prosthodontist Relationship Specialty Start Date End Date Rell Arreola MD [address] [place] [address] PCP - General Internal Medicine 03/13/18 Maxillofacial Prosthodontist Relationship Specialty Start Date End Date Rell Arreola MD [address] [place] [address], [place] [address] PCP - General Internal Medicine 03/13/18 Maxillofacial Prosthodontist Relationship Specialty Start Date End Date Rell Arreola MD [address] [place] [address], [place] [address] PCP - General Internal Medicine 03/13/18 Maxillofacial Prosthodontist Relationship Specialty Start Date End Date Rell Arreola MD [address] [place] [address], [place] [address] PCP - General Internal Medicine 03/13/18 Maxillofacial Prosthodontist Relationship Specialty Start Date End Date Rell Arreola MD [address] [place] [address], [place] [address] PCP - General Internal Medicine 03/13/18 Maxillofacial Prosthodontist Relationship Specialty Start Date End Date Rell Arreola MD [address] [place] [address], [place] [address] PCP - General Internal Medicine 03/13/18 Maxillofacial Prosthodontist Relationship Specialty Start Date End Date Rell Arreola MD [address] [place] [address], [place] [address] PCP - General Internal Medicine 03/13/18 FOR RECORDS PERTAINING TO PATIENTS WHO ARE OR HAVE BEEN ENROLLED IN A CHEMICAL DEPENDENCY/SUBSTANCEABUSE PROGRAM, SOME INFORMATION MAY BE OMITTED. This clinical summary was aggregated from multiple sources. Caution should be exercised in using it in the provision of clinical care. This summary normalizes information from multiple sources, and as a consequence, information in this document may materially change the coding, format and clinical context of patient data. In addition, data may be omitted in some cases. CLINICAL DECISIONS SHOULD BE BASED ON THE PRIMARY CLINICAL RECORDS. [facility]. provides no warranty or guarantee of the accuracy or completeness of information in this document.
[2023-10-13 19:10] VITALS: BP 122/68; PULSE 79; RESP 21; O2SAT 92
[2023-10-13 20:02] LABS: Bacteria 0 SEEN /hpf (None Seen); Mucous, Urine 0 SEEN /hpf (<or=2+); Red Blood Cells-Urine 0 SEEN /hpf (0-5); Squamous Epithelial Cells - UA 0 SEEN /hpf (0-5); White Blood Cells 0 SEEN /hpf (0-5)
[2023-10-13 20:03] LABS: Color, Urine Yellow (Yellow); Glucose, Dipstick Normal (Normal); Ketone-Dipstick 5 mg/dl (Negative); Leukocyte Esterase-Dipstick Negative /ul (Negative); Nitrite-Dipstick Negative (Negative); Occult Blood-Urine Negative /ul (Negative); Protein-Dipstick 30 mg/dl (Negative); Specific Gravity, Urine 1.025 (1.002-1.030); Urine Bilirubin Dipstick Negative (Negative); Urine Clarity Clear (Clear); Urine Urobilinogen Normal (Normal)
[2023-10-13] MEDS: oxyCODONE 5 MG Tablet PO (20:23)
[2023-10-13 21:13] VITALS: BP 119/78; PULSE 85; RESP 18; O2SAT 94
== END 2023-10-13 21:14 | disposition home or self-care (01) ==
PROVIDERS: Emergency Provider Emergency Medicine; PCP Internal Medicine; Visit Provider Emergency Medicine
DX: S01.512A Laceration without foreign body of oral cavity, initial encounter (principal); G40.89 Other seizures; S20.229A Contusion of unspecified back wall of thorax, initial encounter; F17.210 Nicotine dependence, cigarettes, uncomplicated; Z79.899 Other long term (current) drug therapy; X58.XXXA Exposure to other specified factors, initial encounter
CPT/HCPCS: 41250; 70450; 72128; 80048; 81001; 85025; 96361; 96374; 99285; A4216

== ENCOUNTER 2023-12-18 19:56 | Emergency (ER) | payer MEDICAID, SELFPAY ==
[2023-12-18 19:57] VITALS: BP 114/68; PULSE 70; RESP 12; TEMP 36.5; O2SAT 93; BMI 40.4
[2023-12-18 20:32] LABS: Absolute Lymphocyte Count 3.48 X10^3/uL (0.83-4.51); Absolute Neutrophil Count 4.4 X10^3/uL (2.0-7.7); Basophil# 0.07 X10^3/uL; Basophil% 0.8 % (0-1); Eosinophil# 0.13 X10^3/uL; Eosinophils% 1.5 % (0-5); Hematocrit 47.9 % (40-54); Hemoglobin 16.2 g/dL (13.0-16.5); Lymphocyte # 3.48 X10^3/ul (0.83-4.51); Lymphocyte % 39.1 % (19-41); Mean Corp Hgb Conc 33.8 g/dL (32-36); Mean Corpuscular Hgb 31.5 pg (27.0-32.0); Mean Corpuscular Volume 93.2 fL (80-94); Mean Platelet Vol. 10.2 fl (6.2-12.0); Monocyte# 0.74 X10^3/uL; Monocyte% 8.3 % (0-10); NRBC Flagged by Analyzer 0 % (0-5); Neutrophil # 4.44 X10^3/uL (2.7-7.7); Platelet Count 181 K/mm3 (150-450); RBC Distribution Width CV 13.2 % (11.6-14.6); RBC Distribution Width SD 45.1 fl (35.1-43.9); Red Blood Count 5.14 M/mm3 (4.6-6.2); White Blood Count 8.9 K/mm3 (4.4-11.0)
--- NOTE | 2023-12-18 20:33 | EDS_ITS ---
HPI History of Present Illness Chief Complaint: Seizure Informant: patient Onset/Context/Timing Onset: Today Context: Sudden Onset Timing: Continuous Quality: Aching Location: Back and ribs Worsened by: Nothing Relieved by: Nothing Narrative Narrative: Patient presents with a seizure that occurred today. Patient has a history of seizures. Family states that the patient had a generalized tonic-clonic seizure that lasted approximate 1 to 2 minutes. Patient denies biting his tongue. Patient denies any loss of control of his bowels or bladder. Patient denies any recent fevers or chills. Patient admits to some blurred vision. Patient states he also feels off balance. Patient admits to some pain in his back and ribs. Patient states she has been compliant with his medication and has not missed any doses. Patient states he takes lamotrigine 300 mg twice daily. Prior similar symptoms: Yes PFSH PFSH Medical History (Updated 12/18/23 @ 21:[address] Sanjeev Maya DO) Seizure Home Medications trazodone 100 mg tablet 100 mg PO QHS 01/05/18 [History Last Taken Unknown] alprazolam 0.5 mg tablet 0.5 mg PO BID 12/29/19 [History Last Taken Unknown] lamotrigine 200 mg tablet 300 mg PO Q12H SEIZURES 12/29/19 [History Last Taken Unknown] oxycodone-acetaminophen 5 mg-325 mg tablet 1 tab PO Q6H PRN PRN Pain 3 days #12 TABLETS 12/18/23 [Rx Last Taken Unknown] Allergy/AdvReac Type Severity Reaction Status Date / Time acetaminophen [From Vicodin] Allergy MUSCLULAR Verified 12/18/23 20:03 CHEST PAIN hydrocodone [From Vicodin] Allergy MUSCLULAR Verified 12/18/23 20:03 CHEST PAIN Penicillins Allergy Swelling Verified 12/18/23 20:03 prednisone AdvReac Pain in Verified 12/18/23 20:03 joints Surgical History (Updated 12/18/23 @ 21:[address] Sanjeev Maya DO) History of ankle surgery History of carpal tunnel surgery Hx of appendectomy Hx of elbow surgery Social History Smoking Status: Current every day smoker tobacco type: cigarettes ROS ROS ED Constitutional Constitutional ED: Denies chills or fever(s) Eyes Eyes: Reports blurry vision; Denies diplopia ENT ENT ED: Denies rhinorrhea or sore throat Cardiovascular Cardiovascular: Reports chest pain; Denies palpitations Respiratory/Chest Respiratory/Chest: Denies cough or dyspnea Gastrointestinal Gastrointestinal: Denies nausea or vomiting Genitourinary Genitourinary ED: Denies dysuria or hematuria Musculoskeletal Musculoskeletal: Reports back pain; Denies neck pain Integumentary Denies abscess or rash Neurologic Neurologic: Denies headache(s) or weakness Allergic/Immunologic Allergic/Immunologic ED: Denies mouth swelling or urticaria EXAM Physical Exam Const Vital Signs: 12/18/23 19:57 Temperature 97.7 F L Temperature Source Temporal Pulse Rate 70 Respiratory Rate 12 Blood Pressure 114/68 Blood Pressure Mean 83 Pulse Ox 93 Oxygen Delivery Method Room Air Positive well nourished and well developed General Appearance ED: well developed and NAD HEENT Reports moist mucous membranes Neck supple and no JVD Resp normal respiratory effort and clear to auscultation bilaterally Cardio regular rate and regular rhythm GI non-tender and non-distended Palpation: soft Neuro oriented x3, CN's II-XII intact bilaterally and no sensory deficits noted Sensorium / Orientation: alert Motor Exam: strength 5/5 throughout Psych mental status grossly normal MDM MDM MDM Narrative Medical decision making narrative: Differential diagnosis includes electrolyte abnormality, medication noncompliance, and infection. CBC will be obtained to assess for leukocytosis and anemia. Basic metabolic profile will be obtained to assess for electrolyte abnormality and renal function. Lamotrigine level will be obtained to assess for medication noncompliance. Lab Data Lab results narrative: CBC was reviewed and was within normal limits. Basic metabolic profile was reviewed and is within normal limits. Lamotrigine level is a send out and will not be returned tonight. Labs: Laboratory Results - last 24 hr 12/18/23 20:22 WBC 8.9 RBC 5.14 Hgb 16.2 Hct 47.9 MCV 93.2 MCH 31.5 MCHC 33.8 RDW Std Deviation 45.1 H RDW Coeff of Nubia 13.2 Plt Count 181 MPV 10.2 Immature Gran % (Auto) 0.300 Neut % (Auto) 50.0 Lymph % (Auto) 39.1 Sterling % (Auto) 8.3 Eos % (Auto) 1.5 Baso % (Auto) 0.8 Absolute Neuts (auto) 4.4 Absolute Lymphs (auto) 3.48 Nucleated RBC % 0 Sodium 140 Potassium 4.4 Chloride 105 Carbon Dioxide 30.0 Anion Gap 5 BUN 9 Creatinine 0.99 Estim Creat Clear Calc 110.25 Est GFR (MDRD) Af Amer 106 Est GFR (MDRD) Non-Af 88 BUN/Creatinine Ratio 9.1 L Glucose 87 Calcium 9.1 Treatment and Re-Evaluation :: Seizure precautions were maintained. Patient was given IV fluids, morphine, and Zofran. Patient is feeling better on reevaluation. Patient was advised of his findings. Patient was instructed to drink plenty of fluids. Patient was instructed to continue his lamotrigine as previously prescribed. Patient was instructed to follow-up with his primary care physician in 5 to 7 days. Patient understood and was agreeable with the plan. All questions were answered. Discharge Plan Triage Chief Complaint: Seizure ED Provider: Sanjeev Maya Dx/Rx/DC Orders Clinical Impression: Breakthrough seizure, Seizure disorder Instructions: ED Seizure, Recurrent (Adult) Prescriptions: Continued oxycodone-acetaminophen 5-325 mg tablet 1 tab PO Q6H PRN PRN (Reason: Pain) 3 Days Qty: 12 0RF No Action trazodone 100 MG tablet 100 mg PO QHS lamotrigine 200 MG tablet 300 mg PO Q12H alprazolam 0.5 MG tablet 0.5 mg PO BID Primary Care Provider: Rachael Arreola Referrals: Rachael Arreola MD [Primary Care Provider] - 5-7 Days Disposition Disposition: Home, Self Care
[2023-12-18] MEDS: Ondansetron 4 MG/2 ML Vial IV (20:38)
[2023-12-18] MEDS: Morphine 4 MG/ML Syringe IV (20:38)
[2023-12-18] MEDS: 0.9% Normal Saline (1000mL) 1,000 ML 1000 ML IV (20:38)
[2023-12-18 21:01] LABS: Anion Gap 5 (5-15); BUN 9 mg/dL (7-18); BUN/Creat Ratio 9.1 RATIO (10-20); Calcium,Total 9.1 mg/dL (8.5-10.1); Chloride 105 mmol/L (98-107); Creatinine, Serum 0.99 mg/dL (0.70-1.30); EST Glomerular Filtration Rate 88 mL/min (>60); Est Glom Filt Rate - Afr Amer 106 mL/min (>60); Estimated Creatinine Clearance 110.25 ml/min; Glucose 87 mg/dL (74-106); Potassium 4.4 mmol/L (3.5-5.1); Sodium Level 140 mmol/L (136-145)
--- OUTSIDE RECORDS SUMMARY | 2023-12-18 21:26 | XMS RPT_ITS | CCD ---
Author Name Unknown Address [address] [place] [address] Organization [facility] Care Team Providers Care Bicycle Taxi Driver Name Role Phone Shari Torreica N Unavailable Steven Torressica N Unavailable Steven Torressica N Unavailable Torre, Heaven N Unavailable KENDRA JARRETT (KASI) Unavailable Unavailable KENDRA JARRETT (KASI) Unavailable Unavailable RADHA LAURENT Unavailable Unavailable RADHA LAURENT Unavailable Unavailable NO REFERRING DR Unavailable Unavailable KENDRA LAURENT Unavailable Unavailable KENDRA LAURENT Unavailable Unavailable Kendra Bo Unavailable Unavailable PROVIDER, UNKNOWN Unavailable Unavailable No, PCP Unavailable Unavailable SHOSHANA WALLER Unavailable Unavailable SHOSHANA WALLER Unavailable Unavailable SHOSHANA WALLER Unavailable Unavailable SHOSHANA WALLER Unavailable Unavailable Rell Arreola MD Primary Care Provider Rell Arreola MD Primary Care Provider Rell Arreola MD Primary Care Provider TALAMPMARTELL, RELL D Primary Care Unavailable TALAMPAS, RELL D Attending Unavailable TALAMPAS, RELL D Primary Care Unavailable ROSY BATES Referring Unavailable TALAMPAS, RELL D Primary Care Unavailable TALAMPAS, RELL D Attending Unavailable LAZARA MCLEOD Attending Unavailable TALAMPAS, RELL D Primary Care Unavailable LAZARA MCLEOD Attending Unavailable LAZARA MCLEOD Referring Unavailable TALAMPAS, RELL D Primary Care Unavailable ROSY BATES Attending Unavailable TALAMPAS, RELL D Primary Care Unavailable TALAMPAS, RELL D Primary Care Unavailable TALAMPAS, RELL D Referring Unavailable TALAMPAS, RELL D Primary Care Unavailable TALAMPAS, RELL D Referring Unavailable TALAMPAS, RELL D Referring Unavailable TALAMPAS, RELL D Primary Care Unavailable TALAMPAS, RELL D Referring Unavailable TALAMPAS, RELL D Primary Care Unavailable TALAMPAS, RELL D Primary Care Unavailable TALAMPAS, RELL D Referring Unavailable TALAMPAS, RELL D Primary Care Unavailable LEMON, TIFFANIE Referring Unavailable TALAMPAS, RELL D Primary Care Unavailable LEMON, TIFFANIE Attending Unavailable TALAMPAS, RELL D Referring Unavailable MCLEOD, LAZARA Referring Unavailable TALAMPAS, RELL D Primary Care Unavailable VALDEZ SALAS Attending Unavailable TALAMPAS, RELL D Primary Care Unavailable TALAMPAS, RELL D Primary Care Unavailable TALAMPAS, RELL D Attending Unavailable Allergies Allergy Classification Reported Allergen(s) Allergy Type Date of Onset Reaction(s) Facility (4 sources) penicillin v drug allergy [facility] Work Phone: (20 sources) acetaminophen / HYDROcodone; Translations: [HYDROCODONE-ACET AMINOPHEN] Drug Allergy 7 Cough [facility] (20 sources) Penicillins; Translations: [PENICILLINS] Propensity to adverse reactions to drug (disorder) 5 [facility] (20 sources) predniSONE; Translations: [PREDNISONE] Drug Allergy 8 Intolerance [facility] Medications Current Medications Medication Drug Class(es) Dates Sig (Normalized) Sig (Original) acetaminophen 325 mg / oxyCODONE hydrochloride 5 mg oral tablet (5 sources) Opioid Agonist Start: 10-27-2023 End: 11-25-2023 take 1-2 tablets by mouth every six hours as needed for pain oxyCODONE-acetami nophen (PERCOCET) 5-325 mg tablet Indications: Fall, initial encounter , Acute bilateral thoracic back pain , Acute chest wall pain , Acute hip pain, left , Acute shoulder pain due to trauma, left , Chest wall discomfort Take 1-2 tablets by mouth every 6 hours as needed for pain for up to 7 days. As needed as directed 56 tablet 0 11/18/2023 11/25/2023 Active Completed/Discontinued Medications Medication Drug Class(es) Dates Sig (Normalized) Sig (Original) acetaminophen 500 mg oral tablet (9 sources) Start: 03-01-2022 End: 11-18-2023 take 2 tablets by mouth every six hours as needed for pain acetaminophen (TYLENOL) 500 mg tablet Indications: Acute right-sided low back pain without sciatica Take 2 tablets by mouth every 6 hours as needed for pain. 30 tablet 1 03/01/2022 11/18/2023 Discontinued Problems Active Problems Problem Classification Problem Date Documented Date Episodic/Chronic Alcohol-related disorders (20 sources) Moderate alcohol dependence; Translations: [Alcohol dependence, uncomplicated] Onset: 09-26-2015 09-26-2015 Chronic Anxiety disorders (20 sources) Generalized anxiety disorder; Translations: [Generalized anxiety disorder] Onset: 12-15-2012 10-08-2021 Chronic Diseases of white blood cells (1 source) Elevated white blood cell count, unspecified; Translations: [Leukocytosis, unspecified type] Onset: 10-20-2023 Chronic E Codes: Fall (2 sources) Fall; Translations: [Unspecified fall, initial encounter] Onset: 11-18-2023 11-18-2023 Episodic Epilepsy; convulsions (7 sources) Recurrent seizure; Translations: [Epilepsy, unspecified, not intractable, without status epilepticus] Onset: 11-28-2023 Chronic Epilepsy; convulsions (1 source) Unspecified convulsions; Translations: [Seizure (HCC)] Onset: 11-28-2023 Episodic Immunizations and screening for infectious disease (1 source) Vaccination needed; Translations: [Encounter for immunization] Episodic Mood disorders (20 sources) Dysthymic disorder; Translations: [Dysthymic disorder] Onset: 09-26-2015 09-26-2015 Chronic Nonspecific chest pain (4 sources) Chest wall pain; Translations: [Other chest pain] Onset: 11-18-2023 11-18-2023 Episodic Nutritional deficiencies (20 sources) Vitamin D deficiency; Translations: [Vitamin D deficiency, unspecified] Onset: 07-29-2016 07-29-2016 Chronic Other aftercare (1 source) Patient encounter status; Translations: [Other assistant terminal manager (current) drug therapy] Episodic Other aftercare (1 source) Other assistant terminal manager (current) drug therapy; Translations: [Encounter for long-term current use of medication] Onset: 10-20-2023 Episodic Other connective tissue disease (1 source) Calcaneal spur of left foot; Translations: [Calcaneal spur, left foot] Episodic Other connective tissue disease (1 source) Left achilles tendonitis; Translations: [Achilles tendinitis, left leg] Episodic Other lower respiratory disease (1 source) Wheezing; Translations: [Wheezing] Episodic Other nervous system disorders (20 sources) Lesion of ulnar nerve, left upper limb; Translations: [Lesion of ulnar nerve] Onset: 07-16-2018 07-16-2018 Chronic Other nervous system disorders (1 source) Carpal tunnel syndrome, left upper limb; Translations: [Carpal tunnel syndrome, left upper limb] Onset: 05-05-2018 Chronic Other nervous system disorders (20 sources) Carpal tunnel syndrome of left wrist; Translations: [Carpal tunnel syndrome, left upper limb] Onset: 05-05-2018 05-05-2018 Chronic Other nervous system disorders (1 source) Acute pain due to trauma; Translations: [Acute shoulder pain due to trauma, left] Onset: 11-18-2023 Episodic Other non-traumatic joint disorders (12 sources) Pain in left shoulder; Translations: [Pain in joint, shoulder region] Onset: 03-16-2020 03-16-2020 Episodic Other non-traumatic joint disorders (1 source) Hip pain; Translations: [Pain in left hip] 11-18-2023 Episodic Other non-traumatic joint disorders (1 source) Pain in left hip; Translations: [Acute hip pain, left] Onset: 11-18-2023 Episodic Other nutritional; endocrine; and metabolic disorders (20 sources) Metabolic syndrome X; Translations: [Metabolic syndrome] Onset: 05-15-2011 05-15-2011 Chronic Other nutritional; endocrine; and metabolic disorders (20 sources) Obese class I; Translations: [Obesity, unspecified] Onset: 07-30-2018 07-30-2018 Chronic Other screening for suspected conditions (not mental disorders or infectious disease) (20 sources) Liver function tests abnormal; Translations: [Other specified abnormal findings of blood chemistry] Onset: 11-07-2006 05-08-2011 Episodic Other upper respiratory disease (1 source) Seasonal allergic rhinitis; Translations: [Other seasonal allergic rhinitis] Chronic Residual codes; unclassified (1 source) Persistent insomnia; Translations: [Insomnia, unspecified] Episodic Spondylosis; intervertebral disc disorders; other back problems (4 sources) Tear of the annulus fibrosus of intervertebral disc; Translations: [Other intervertebral disc degeneration, thoracolumbar region] Onset: 08-12-2016 08-19-2016 Chronic Spondylosis; intervertebral disc disorders; other back problems (20 sources) Spinal stenosis, lumbar region; Translations: [Lumbosacral neuritis] Onset: 08-12-2016 12-16-2016 Episodic Sprains and strains (14 sources) Strain of back muscle; Translations: [Strain of muscle, fascia and tendon of lower back, initial encounter] Onset: 11-05-2023 11-05-2023 Episodic Substance-related disorders (20 sources) Tobacco user; Translations: [Nicotine dependence, unspecified, uncomplicated] Onset: 04-26-2009 04-26-2009 Chronic Unclassified (2 sources) Unknown / UNK(Unknown) Onset: 07-09-2017 Unclassified (2 sources) Other specified postprocedural states; Translations: [Pain, unspecified] Onset: 05-04-2018 Past or Other Problems Problem Classification Problem Date Documented Da te Episodic/Chronic Other bone disease and musculoskeletal deformities (12 sources) Segmental and somatic dysfunction; Translations: [Segmental and somatic dysfunction of thoracic region] Onset: 08-26-2016 08-29-2016 Episodic Other connective tissue disease (4 sources) Spasm of back muscles; Translations: [Muscle spasm of back] Onset: 08-12-2016 08-19-2016 Episodic Other non-traumatic joint disorders (10 sources) Shoulder pain; Translations: [Pain in left shoulder] Onset: 03-16-2020 03-16-2020 Episodic Substance-related disorders (20 sources) Drug-induced mood disorder; Translations: [Other psychoactive substance use, unspecified with psychoactive substance-induced mood disorder] Onset: 09-26-2015 09-26-2015 Episodic Results Test Name Value Interpretation Reference Range Facil ity Vital Signs Date Time Vital Sign Value Performing Clinician Facility 11-18-2023 14:08-0500 Body weight 104.78 kg Lazara Mcleod APRN.ORGANIC PREPARATION ANALYST Work Phone: [facility] 11-18-2023 14:08-0500 Diastolic blood pressure 70 mm[Hg] Lazara Mcleod APRN.ORGANIC PREPARATION ANALYST Work Phone: [facility] 11-18-2023 14:08-0500 Heart rate 76 /min Lazara Mcleod [employer] POWER PLANT ENGINEER.ORGANIC PREPARATION ANALYST Work Phone: [facility] 11-18-2023 14:08-0500 Respiratory rate 16 /min Lazara Mcleod [employer] ENGINEER.ORGANIC PREPARATION ANALYST Work Phone: [facility] 11-18-2023 14:08-0500 SaO2% (BldA) [Mass fraction] 96 % Lazara Mcleod [employer]ANT ENGINEER.ORGANIC PREPARATION ANALYST Work Phone: [facility] 11-18-2023 14:08-0500 Systolic blood pressure 112 mm[Hg] Lazara Mcleod [employer] PL[employer] ENGINEER.ORGANIC PREPARATION ANALYST Work Phone: [facility] 10-27-2023 12:21-0500 Body temperature 99.61 [degF] Rell Arreola MD Work Phone: [facility] 10-27-2023 12:21-0500 Body weight 106.59 kg Rell Arreola MD Work Phone: [facility] 10-27-2023 12:21-0500 Diastolic blood pressure 62 mm[Hg] Rell Arreola MD Work Phone: [facility] 10-27-2023 12:21-0500 Heart rate 82 /min Rell Arreola MD Work Phone: [facility] 10-27-2023 12:21-0500 Respiratory rate 18 /min Rell Arreola MD Work Phone: [facility] 10-27-2023 12:21-0500 SaO2% (BldA) [Mass fraction] 99 % Rell Arreola MD Work Phone: [facility] 10-27-2023 12:21-0500 Systolic blood pressure 112 mm[Hg] Rell Arreola MD Work Phone: [facility] 06-13-2022 09:34-0400 Body weight 91.63 kg Rell Arreola MD Work Phone: [facility] 06-13-2022 09:34-0400 Diastolic blood pressure 66 mm[Hg] Rell Arreola MD Work Phone: [facility] 06-13-2022 09:34-0400 Heart rate 60 /min Rell Arreola MD Work Phone: [facility] 06-13-2022 09:34-0400 Respiratory rate 14 /min Rell Arreola MD Work Phone: [facility] 06-13-2022 09:34-0400 Systolic blood pressure 112 mm[Hg] Rell Arreola MD Work Phone: [facility] 08-26-2016 14:16-0500 BMI (Body Mass Index) 33.45 kg/m2 [facility] Work Phone: 08-26-2016 14:16-0500 BP Diastolic 55 mm[Hg] [facility] Work Phone: 08-26-2016 14:16-0500 BP Systolic 175 mm[Hg] [facility] Work Phone: 08-26-2016 14:16-0500 Weight 99.79 kg [facility] Work Phone: 08-12-2016 08:44-0400 Height 172.72 cm [facility] Work Phone: Encounters Encounter Date Encounter Type Care Provider Facility Start: 12-09-2023 [facility] Work Phone: Neurology Procedures Date Procedure Procedure Detail Performing Clinician Start: 06-13-2022 Lipid 1996 panel - S adilene or Jemima Mcleod [employer] ENGINEER.ORGANIC PREPARATION ANALYST Work Phone: Start: 03-05-2022 Radex spine lumbosac ral 2/3 views Tri Washburn [employer] PLANT ENGINEER.CONCRETE BLOCK PLANT SUPERVISOR Work Phone: Start: 09-12-2016 End: 09-12-2016 Chiropractic manipulation Leigh B Dossi DC Work Phone: Start: 09-10-2016 End: 09-10-2016 Chiropractic manipulation Leigh Mercer Dossi DC Work Phone: Start: 08-29-2016 End: 08-29-2016 Chiropractic manipulation Leigh Mercer Dossi DC Work Phone: Start: 08-27-2016 End: 08-27-2016 Chiropract manj 1-2 regions Leigh Mercer Dossi DC Work Phone: Start: 08-26-2016 End: 08-26-2016 Chiropract manj 1-2 regions Leigh Mercer Dossi DC Work Phone: Plan of Treatment Date Care Activity Detail Author Start: 06-13-2027 Lipid panel Lipid Screening [facility] Start: 06-13-2027 LIPID SCREEN LIPID SCREEN [facility] Start: 10-20-2024 Covid-19 Vaccine ( season) Covid-19 Vaccine () [facility] Immunizations Immunization Date Immunization Notes Care Provider Adelina michael 07-01-2017 influenza virus vaccine, unspecified formulation Lazara Mcleod APRN.ORGANIC PREPARATION ANALYST Work Phone: [facility] 12-02-2011 tetanus toxoid, reduced diphtheria toxoid, and acellular pertussis vaccine, adsorbed Drake Stearns Work Phone: [facility] NEGATED: Highlighted row has not occurred!08-07-2022 tetanus and diphtheria toxoids, adsorbed, preservative free, for adult use (2 Lf of tetanus toxoid and 2 Lf of diphtheria toxoid) Rell Arreola MD Work Phone: [facility] Work Phone: Payers Date Payer Category Payer Medicaid [id number] 2022 Unknown [id number] 2017 Medicaid [facility] [id number] 2017-Present [phone] [address] [place] [address] Medicaid [id number] 2017 Medicaid [id number] Unknown Social History Date Type Detail Facility Start: [facility]13-2022 [facility] History of tobacco use Cigarette Smoker [facility] Start: 01-09-2022 End: 12-11-2022 Alcohol intake Current drinker of alcohol (finding) [facility] Start: 01-09-2022 End: 04-18-2023 Alcohol intake [facility] Start: 05-22-2020 End: 12-11-2022 History SDOH Alcohol Frequency 2 [facility] Start: 05-22-2020 End: 12-11-2022 History SDOH Alcohol Std Drinks 1 [facility] Start: 03-07-2020 End: 12-11-2022 History SDOH Social Connections Living 7 [facility] Start: 03-07-2020 History SDOH Physica l Activity MPS 6 [facility] Start: 03-07-2020 End: 12-11-2022 History SDOH Stress 5 [facility] Start: 03-07-2020 End: 12-11-2022 History SDOH Financial 3 [facility] Start: 03-07-2020 Education 21 [facility] Start: 1980 Sex Assigned At Not on file [facility] Start: 12-30-2021 End: 03-07-2022 Exposure to SARS-CoV-2 (event) Not sure [facility] Start: 06-13-2022 Tobacco use and exposure Smoke less tobacco non-user [facility] Start: 10-27-2023 End: 11-18-2023 Alcohol intake Ex-drinker (finding) [facility] Start: 12-11-2022 End: 04-18-2023 Social connection and isolation panel [facility] Do you belong to any clubs or organizations such as druze groups, unions, fraternal or athletic groups, or school groups? No [facility] Are you now , , , , never or living with a partner? Never [facility] How often to you hav e a drink containing alcohol? Monthly or less [facility] How many standard dr inks containing alcohol do you have on a typical day? 1 or 2 [facility] How often do you hav e 6 or more drinks on 1 occasion? Less than monthly [facility] How hard is it for y ou to pay for the very basics like food, housing, medical care, and heating Patient refused [facility] Do you feel stress - tense, restless, nervous, or anxious, or unable to sleep at night because your mind is troubled all the time - these days [OSQ] Very much [facility] (I/We) worried wheth er (my/our) food would run out before (I/we) got money to buy more. Never true [facility] Start: 10-20-2023 Alcohol Comment Drinking less [facility] Start: 1980 Sex Assigned At Male [facility] Start: 04-16-2023 Gender identity Identifies as male gender (finding) [facility] Start: 04-16-2023 Sexual orientation Heterosexual (elina monreal) [facility] Clinical Notes 09-26-2015 to 12-09-2023 Telephone Encounter - Tanya Jones RN - 12/09/2023 5:22 PM ESTTelephone Encounter - Melissa Duke RN - 12/09/2023 4:43 PM ESTTelephone Encounter - Maxine Doherty - 12/08/2023 12:20 PM EST Note Date & Type Note Facility 12-09-2023 Miscellaneous Notes Addressed by GREGORY in separate encounter. Tanya Jones RN 12/09/23 Yu[place]i message has been routed to GREGORY for review. Srikanth Torres RN General call : Full name of person calling: Can Brown Relationship to patient: self Phone # : [phone] (home) Reason for call: pt reporting having episodes, though not seizures, over the weekend Patient of Dr. Ramirez documented in this encounter [facility] 12-09-2023 Miscellaneous Notes 12/03/23 recommendations per JANIS Dodson: Vitamin D level is low, so I would recommend supplementing with vitamin D 36802 units weekly x8 weeks, and repeating vitamin D blood level week 9. That prescription was sent to your local [facility], and a new lab order for vitamin D ~ 01/25 was placed (can be drawn in [place]). Based on your last seizure and review of Lamictal blood level, we discussed increasing Lamictal over the week from 300mg twice daily to 375mg twice daily. We will also repeat that level week 9 (order placed). Lamictal Schedule: 12/03-12/07: increase Lamictal to 300mg (2 pills) in the morning and 375 mg (2.5 pills) at night. 12/08 on: increase Lamictal to 375mg (2.5 pills) in the morning and 375 mg (2.5 pills) at night. Let me know if you have any questions, or issues as you make the above adjustment. Thanks, Lea ========= Patient update routed for review. Srikanth Torres RN documented in this encounter [facility] 12-03-2023 Miscellaneous Notes I called to speak with Can about lab results. Vitamin D level is low, so I would recommend supplementing with vitamin D 71750 units weekly x8 weeks, and repeating vitamin D blood level week 9. He has recent breakthrough seizures (last 11/18/2023) and room to go up based on his recent level. We discussed increasing Lamictal over the week from 300mg BID to 375mg BID, and repeating level week 9 when he is getting his repeat vitamin D level. Component Latest Ref Rng & Units 02/15/2020 06/13/2022 11/28/2023 Lamotrigine 1.0 - 13.0 ug/mL 3.9 5.7 5.9 Vitamin D 25 Hydroxy 31.0 - 80.0 ng/mL 27.7 (L) 22.5 (L) The following approved medication requests have been transmitted electronically to [facility]. Requested Prescriptions Signed Prescriptions Disp Refills lamoTRIgine (LAMICTAL) 150 mg tablet 450 tablet 3 Sig: Take 2.5 tablets by mouth two times a day. Authorizing Provider: VALDEZ SALAS ergocalciferol 50,000 unit capsule (VITAMIN D2, DRISDOL) 8 capsule 0 Sig: Take 1 capsule by mouth one time a week for 8 doses. Authorizing Provider: VALDEZ SALAS Susan Stanton, PA-C From last OV: IMPRESSION: The patient with bipolar disorder and anxiety experienced 2 convulsions without aura in Nov and December of 2019. Previously seizure free on Lamotrigine 300 mg BID until recent recurrence of convulsive seizure on 10/13/2023 in setting of medication noncompliance. He has been strict with Lamictal dosing since his seizure, with a recent breakthrough GTC seizure 11/18/2023 with no major triggers, although stress and pain may have played a factor. We discussed increasing LTG or starting with LTG level to assess, and he elects to get his LTG level done at the end of the week to make further recommendations. PLAN: Labs: LTG level, Vitamin D Continue Lamotrigine 300 mg BID for now Consider increase in Lamotrigine vs adding second agent We discussed further monitoring with video EEG if seizures continue Reiterated the importance of taking medication consistently/daily Seizure precautions, including no driving Continue to follow with local [facility] for bipolar documented in this encounter [facility] 11-28-2023 Note HNO ID: [id number] Author: TIFFANIE CONKLIN PT Service: ? Author Type: Physical Therapist Type: Progress Notes Filed: 11/28/2023 15:36 Note Text: Episode Visit Count: 5 Therapist That Will Accept/Oversee The Plan Of Care: Tiffanie Conklin Start of Care Date: 11/05/23 Onset Date: 10/13/23 Plan of Care Certification Date: 11/05/23 Next Certification Due Date: 01/04/24 Patient Identified by Name and Date of : Yes [facility] PHYSICAL THERAPY TREATMENT NOTE ASSESSMENT: Can Brown tolerated the session with fatigue and expected muscle soreness. He demonstrated improvements in tolerance to exercise with decreased soreness and pain in low back and thoracic spine. The patient will continue to benefit from ongoing skilled physical therapy to progress toward set goals. PLAN FOR NEXT VISIT: Continue with manual prn. Asses response to core stabilization in hooklying. SUBJECTIVE: Pt reports that he had a virtual viist with neurology, didn't say a whole lot. Not allowed to drive for a few months. Pt reports that he is starting to feel better. He thinks that the tration is helping, keeps him loosened up for the remainder of the day. Pain: Pain Pain Level: 3 Pain Location: Low Back/Lumbar Spine - Right, Shoulder - Right (ribs right) Post Treatment Pain Post Treatment Pain Level: Better Post Treatment Pain Location: Back OBJECTIVE MEASURES WITH LEVEL OF FUNCTION: TTP along B medial borders of scapulae. TREATMENT: Therapeutic Exercise: 1: *Standing AAROM shoulder flexion stretch 2x30 seconds R 2: *Standing AAROM at wall shoulder abduction stretch x20 seconds B 3: Supine protraction 2x5 (Pt stated moving arms forward versus completing scapular retractions feeld better) 4: TA stabilization in Hooklying via shoulder extension 2x10 with 2 second holds 5: TA activation in hooklying with alt UE 2x5 B (had to stop secondary to increase in L shoulder pain, even while in small range) Skilled Intervention: Patient was educated in proper exercise technique and purpose for exercises. Reviewed and educated patient on additions/changes for home exercise program as above (*). Skilled judgment was used in selection of appropriate interventions. Correct performance of therapeutic exercises was facilitated with verbal and visual cuing. Manual Therapy: 1: Manual lumbar belt traction with LE elevated on taras with caudal pull to tolerance. 2: STM to B medial borders of scpula Skilled Intervention: Manual skills to improve joint mobility, ROM, and decrease pain. Utilized anatomy knowledge of the therapist, and assessment of patient's response to intervention. Billing Therapeutic Exercise Treatment Minutes: 23 Manual TherapyTreatment Minutes: 15 Skilled Treatment Time Minutes (timed and untimed codes): 38 Total Session Time (minutes): 38 Session Start Time : 1310 Session Stop Time : 1348 Mirna Lowry, [employer]UTTY [employer]INTER MAKER Tiffanie Conklin, PT [facility] 11-28-2023 History of Presen t illness Narrative Episode Visit Count: 5 Therapist That Will Accept/Oversee The Plan Of Care: Tiffanie Conklin Start of Care Date: 11/05/23 Onset Date: 10/13/23 Plan of Care Certification Date: 11/05/23 Next Certification Due Date: 01/04/24 Patient Identified by Name and Date of : Yes REHABILITATION AND SPORTS THERAPY PHYSICAL THERAPY TREATMENT NOTE ASSESSMENT: Can Brown tolerated the session with fatigue and expected muscle soreness. He demonstrated improvements in tolerance to exercise with decreased soreness and pain in low back and thoracic spine. The patient will continue to benefit from ongoing skilled physical therapy to progress toward set goals. PLAN FOR NEXT VISIT: Continue with manual prn. Asses response to core stabilization in hooklying. SUBJECTIVE: Pt reports that he had a virtual viist with neurology, didn't say a whole lot. Not allowed to drive for a few months. Pt reports that he is starting to feel better. He thinks that the tration is helping, keeps him loosened up for the remainder of the day. Pain: Pain Pain Level: 3 Pain Location: Low Back/Lumbar Spine - Right, Shoulder - Right (ribs right) Post Treatment Pain Post Treatment Pain Level: Better Post Treatment Pain Location: Back OBJECTIVE MEASURES WITH LEVEL OF FUNCTION: TTP along B medial borders of scapulae. TREATMENT: Therapeutic Exercise: 1: *Standing AAROM shoulder flexion stretch 2x30 seconds R 2: *Standing AAROM at wall shoulder abduction stretch x20 seconds B 3: Supine protraction 2x5 (Pt stated moving arms forward versus completing scapular retractions feeld better) 4: TA stabilization in Hooklying via shoulder extension 2x10 with 2 second holds 5: TA activation in hooklying with alt UE 2x5 B (had to stop secondary to increase in L shoulder pain, even while in small range) Skilled Intervention: Patient was educated in proper exercise technique and purpose for exercises. Reviewed and educated patient on additions/changes for home exercise program as above (*). Skilled judgment was used in selection of appropriate interventions. Correct performance of therapeutic exercises was facilitated with verbal and visual cuing. Manual Therapy: 1: Manual lumbar belt traction with LE elevated on taras with caudal pull to tolerance. 2: STM to B medial borders of scpula Skilled Intervention: Manual skills to improve joint mobility, ROM, and decrease pain. Utilized anatomy knowledge of the therapist, and assessment of patient's response to intervention. Billing Therapeutic Exercise Treatment Minutes: 23 Manual TherapyTreatment Minutes: 15 Skilled Treatment Time Minutes (timed and untimed codes): 38 Total Session Time (minutes): 38 Session Start Time : 1310 Session Stop Time : 1348 Mirna Lowry, [employer] MAKER Tiffanie Conklin PT documented in this encounter [facility] 11-26-2023 Note HNO ID: [id number] Author: VALDEZ SALAS PA-C Service: ? Author Type: Physician Imposer Type: Progress Notes Filed: 11/26/2023 16:54 Note Text: [facility] Patient Name: Can Brown Date of : 1980 CLINIC NOTE - FOLLOW UP VISIT virtual visit This is a virtual visit using [employer] Video Visit. It required patient-provider interaction for the medical decision making as documented below. I have communicated my name and active licensure. The patient's identity and physical location were verified at the time of this visit. Either the patient or their legal kiosk sales representative has been informed of the risks and benefits of -- and alternatives to -- treatment through a remote evaluation and consents to proceed with the evaluation remotely. CHIEF COMPLAINT: Patient presents with: Follow Up Seizures PRESENT ILLNESS: This is a 43 year old right-handed male who has history of bipolar disorder and anxiety (has established local psychiatrist), No family history of seizure, no history [...] w/wo 11/16/2019: unremarkable .He completed EEG at [facility] on 01/03/2020 with a normal results. He has bipolar disorder, and was on Lamotrigie 200 mg am. At telemedicine visit on 12/31/2019, his Lamotrigitne was planned to increased to 200 mg bid, then 300 mg bid based on Lamotrigine level. At virtual visit on 11/26/2023: Seizure medication: Lamictal 300mg BID Side effects: none Seizures: He had a seizure on 11/18/2023. It was not as severe as the last seizure (did not last as long), but there was no warning like the October seizure (although he typically does not get a warning with seizures). He was at home, in the morning around 8am. He had woken up at 6-7am that morning, which is typical for him, and had already took his morning medication. He remembers getting up to go the bathroom and he woke up on the floor, confused ~10 minutes. When he came to his mother was talking to him - she came when she heard him fall. When she came to find him he was not convulsing. Seizure was shorter than normal (typically lasts 2 minutes). He has significant injuries with his last two seizures, and prior seizures. He fell on his left shoulder with this seizure, and was still recovering from the October seizure where he fel on his right shoulder (undergoing PT). He does not sleep well - falls asleep, wakes up intermittently. He follows with psychiatry who prescribes Trazodone (can take 100 or 200mg at night). He was on Seroquel but that was making him too groggy in the morning. Sleep has recently been affected by pain at night-time. Triggers: denies alcohol, or missed medication; he has increased stress with last seizure (driving, taking care of parents, quit job, moved in with parents) He sees a psychiatrist for bipolar disorder, who recent started Trintellix (drug interactions ran, no interactions with Lamictal). He has been using his prescribed pain medication since his last seizure, taking as prescribed. At virtual visit on 11/05/2023 with Rosy Bates PA-C: Patient had breakthrough seizure on 10/13/2023. Reports he was outside talking to sister in driveway, told her he felt dizzy/lightheaded, then he got tunnel vision. Next he suddenly had LOC and fell to ground. Reports he suffered back injury with compression in spine and tongue bite (required 6 stiches), no head injury. He is currently in PT for back injury. Endorses he has been inconsistent with taking his anti-seizure medication. In the month of September 2023 he estimates he missed 10-15 days of medication. Confirms missing medications in the couple days leading up to seizure. He has since resumed taking Lamotrigine 300 mg BID, denies any side effects. No prior side effects that led him to not take consistently, he was unsure if he needed medication. Continues to follow with local mental health provider for bipolar disorder ([facility]). Currently taking Trintellix, Xanax, and Seroquel, will be coming off Seroquel soon. 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 [facility] 11-26-2023 History of Presen t illness Narrative [facility] Patient Name: Can Brown Date of : 1980 CLINIC NOTE - FOLLOW UP VISIT virtual visit This is a virtual visit using [employer] Video Visit. It required patient-provider interaction for the medical decision making as documented below. I have communicated my name and active licensure. The patient's identity and physical location were verified at the time of this visit. Either the patient or their legal kiosk sales representative has been informed of the risks and benefits of -- and alternatives to -- treatment through a remote evaluation and consents to proceed with the evaluation remotely. CHIEF COMPLAINT: Patient presents with: Follow Up Seizures PRESENT ILLNESS: This is a 43 year old right-handed male who has history of bipolar disorder and anxiety (has established local psychiatrist), No family history of seizure, no history [...] w/wo 11/16/2019: unremarkable .He completed EEG at [facility] on 01/03/2020 with a normal results. He has bipolar disorder, and was on Lamotrigie 200 mg am. At telemedicine visit on 12/31/2019, his Lamotrigitne was planned to increased to 200 mg bid, then 300 mg bid based on Lamotrigine level. At virtual visit on 11/26/2023: Seizure medication: Lamictal 300mg BID Side effects: none Seizures: He had a seizure on 11/18/2023. It was not as severe as the last seizure (did not last as long), but there was no warning like the October seizure (although he typically does not get a warning with seizures). He was at home, in the morning around 8am. He had woken up at 6-7am that morning, which is typical for him, and had already took his morning medication. He remembers getting up to go the bathroom and he woke up on the floor, confused ~10 minutes. When he came to his mother was talking to him - she came when she heard him fall. When she came to find him he was not convulsing. Seizure was shorter than normal (typically lasts 2 minutes). He has significant injuries with his last two seizures, and prior seizures. He fell on his left shoulder with this seizure, and was still recovering from the October seizure where he fel on his right shoulder (undergoing PT). He does not sleep well - falls asleep, wakes up intermittently. He follows with psychiatry who prescribes Trazodone (can take 100 or 200mg at night). He was on Seroquel but that was making him too groggy in the morning. Sleep has recently been affected by pain at night-time. Triggers: denies alcohol, or missed medication; he has increased stress with last seizure (driving, taking care of parents, quit job, moved in with parents) He sees a psychiatrist for bipolar disorder, who recent started Trintellix (drug interactions ran, no interactions with Lamictal). He has been using his prescribed pain medication since his last seizure, taking as prescribed. At virtual visit on 11/05/2023 with Rosy Bates PA-C: Patient had breakthrough seizure on 10/13/2023. Reports he was outside talking to sister in driveway, told her he felt dizzy/lightheaded, then he got tunnel vision. Next he suddenly had LOC and fell to ground. Reports he suffered back injury with compression in spine and tongue bite (required 6 stiches), no head injury. He is currently in PT for back injury. Endorses he has been inconsistent with taking his anti-seizure medication. In the month of September 2023 he estimates he missed 10-15 days of medication. Confirms missing medications in the couple days leading up to seizure. He has since resumed taking Lamotrigine 300 mg BID, denies any side effects. No prior side effects that led him to not take consistently, he was unsure if he needed medication. Continues to follow with local mental health provider for bipolar disorder ([facility]). Currently taking Trintellix, Xanax, and Seroquel, will be coming off Seroquel soon. 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 PREVIOUS EVALUATIONS: EEG Long ([facility] 01/04/2020): Normal Brain MRI W/WO ([facility], 11/16/2019): unremarkable PAST MEDICAL HISTORY: PAST MEDICAL HISTORY [...] HISTORY: Social History Tobacco Use Smoking status: Every Day Packs/day: 1.00 Years: 20.00 Additional pack years: 0.00 Total pack years: 20.00 Types: Cigarettes Smokeless tobacco: Never Vaping Use Vaping Use: Never used Substance Use Topics Alcohol use: Not Currently Alcohol/week: 6.0 standard drinks of alcohol Types: 6 Cans of Beer (12oz) per week Comment: Drinking less Drug use: Yes Types: Marijuana Comment: Lucy - socially Component Lamotrigine Latest Ref Rng & Units 1.0 - 13.0 ug/mL 02/15/2020 3.9 06/13/2022 5.7 IMPRESSION: The patient with bipolar disorder and anxiety experienced 2 convulsions without aura in Nov and December of 2019. Previously seizure free on Lamotrigine 300 mg BID until recent recurrence of convulsive seizure on 10/13/2023 in setting of medication noncompliance. He has been strict with Lamictal dosing since his seizure, with a recent breakthrough GTC seizure 11/18/2023 with no major triggers, although stress and pain may have played a factor. We discussed increasing LTG or starting with LTG level to assess, and he elects to get his LTG level done at the end of the week to make further recommendations. PLAN: Labs: LTG level, Vitamin D Continue Lamotrigine 300 mg BID for now Consider increase in Lamotrigine vs adding second agent We discussed further monitoring with video EEG if seizures continue Reiterated the importance of taking medication consistently/daily Seizure precautions, including no driving Continue to follow with local [facility] for bipolar Follow-up in 3-6 months, contact office if any seizures sooner. I spent a total of 30 minutes on the date of the service which included preparing to see the patient, [id number] patient care, completing clinical documentation, counseling and educating the patient/family/caregiver, and ordering medications, tests, or procedures. Valdez Salas PA-C 11/26/23 documented in this encounter [facility] 11-25-2023 Note HNO ID: [id number] Author: HEAVEN LAURA PT Service: ? Author Type: Physical Therapist Type: Progress Notes Filed: 11/25/2023 14:23 Note Text: Episode Visit Count: 4 Therapist That Will Accept/Oversee The Plan Of Care: Tiffanie Conklin Start of Care Date: 11/05/23 Onset Date: 10/13/23 Plan of Care Certification Date: 11/05/23 Next Certification Due Date: 01/04/24 Patient Identified by Name and Date of : Yes REHABILITATION AND SPORTS THERAPY PHYSICAL THERAPY TREATMENT NOTE ASSESSMENT: Can Brown tolerated the session with fatigue and expected muscle soreness. He demonstrated improvements in back stiffness with manual lumbar traction. The patient will continue to benefit from ongoing skilled physical therapy to progress toward set goals. PLAN FOR NEXT VISIT: Continue with manual lumbar traction. Continue with exercise, consider TA activation in supine SUBJECTIVE: Pt feels that he is getting a litte bit better. Pt reports no difference after lumbar traction. Pain: Pain Pain Level: 4 Pain Location: (midback and ribs- per pt) Post Treatment Pain Post Treatment Pain Location: Back Post Treatment Symptoms: my back feels looser OBJECTIVE MEASURES WITH LEVEL OF FUNCTION: TREATMENT: Therapeutic Exercise: 1: Scapular retractions 2x10 2: Thoracic rotation x 8 each direction 3: Lumbar extension x 1 in sitting -painful 4: Lumbar flexion x 1 in sitting -painful 5: Attempted seated iso abs- shooting pain across low back Skilled Intervention: Patient was educated in proper exercise technique and purpose for exercises. Skilled judgment was used in selection of appropriate interventions. Correct performance of therapeutic exercises was facilitated with verbal and visual cuing. Manual Therapy: 1: Manual lumbar belt traction with LE elevated on taras with caudal pull to tolerance. Skilled Intervention: Manual skills to improve joint mobility, ROM, and decrease pain. Utilized anatomy knowledge of the therapist, and assessment of patient's response to intervention. Billing Therapeutic Exercise Treatment Minutes: 15 Manual TherapyTreatment Minutes: 12 Skilled Treatment Time Minutes (timed and untimed codes): 27 Total Session Time (minutes): 27 Session Start Time : 1318 Session Stop Time : 1345 Mirna Lowry, CYRUS Laura, PT [facility] 11-25-2023 History of Presen t illness Narrative Episode Visit Count: 4 Therapist That Will Accept/Oversee The Plan Of Care: Tiffanie Conklin Start of Care Date: 11/05/23 Onset Date: 10/13/23 Plan of Care Certification Date: 11/05/23 Next Certification Due Date: 01/04/24 Patient Identified by Name and Date of : Yes REHABILITATION AND SPORTS THERAPY PHYSICAL THERAPY TREATMENT NOTE ASSESSMENT: Can Brown tolerated the session with fatigue and expected muscle soreness. He demonstrated improvements in back stiffness with manual lumbar traction. The patient will continue to benefit from ongoing skilled physical therapy to progress toward set goals. PLAN FOR NEXT VISIT: Continue with manual lumbar traction. Continue with exercise, consider TA activation in supine SUBJECTIVE: Pt feels that he is getting a litte bit better. Pt reports no difference after lumbar traction. Pain: Pain Pain Level: 4 Pain Location: (midback and ribs- per pt) Post Treatment Pain Post Treatment Pain Location: Back Post Treatment Symptoms: my back feels looser OBJECTIVE MEASURES WITH LEVEL OF FUNCTION: TREATMENT: Therapeutic Exercise: 1: Scapular retractions 2x10 2: Thoracic rotation x 8 each direction 3: Lumbar extension x 1 in sitting -painful 4: Lumbar flexion x 1 in sitting -painful 5: Attempted seated iso abs- shooting pain across low back Skilled Intervention: Patient was educated in proper exercise technique and purpose for exercises. Skilled judgment was used in selection of appropriate interventions. Correct performance of therapeutic exercises was facilitated with verbal and visual cuing. Manual Therapy: 1: Manual lumbar belt traction with LE elevated on taras with caudal pull to tolerance. Skilled Intervention: Manual skills to improve joint mobility, ROM, and decrease pain. Utilized anatomy knowledge of the therapist, and assessment of patient's response to intervention. Billing Therapeutic Exercise Treatment Minutes: 15 Manual TherapyTreatment Minutes: 12 Skilled Treatment Time Minutes (timed and untimed codes): 27 Total Session Time (minutes): 27 Session Start Time : 1318 Session Stop Time : 1345 CYRUS Roberson PT documented in this encounter [facility] 11-21-2023 Note HNO ID: [id number] Author: TIFFANIE CONKLIN PT Service: ? Author Type: Physical Therapist Type: Progress Notes Filed: 11/21/2023 16:33 Note Text: Episode Visit Count: 3 Therapist That Will Accept/Oversee The Plan Of Care: Tiffanie Conklin Start of Care Date: 11/05/23 Onset Date: 10/13/23 Plan of Care Certification Date: 11/05/23 Next Certification Due Date: 01/04/24 Patient Identified by Name and Date of : Yes REHABILITATION AND SPORTS THERAPY PHYSICAL THERAPY TREATMENT NOTE ASSESSMENT: Can Brown tolerated the session with decreased symptoms. He demonstrated improvements in low back pain with manual lumbar traction. The patient will continue to benefit from ongoing skilled physical therapy to progress toward set goals. PLAN FOR NEXT VISIT: Asses duration and prolonged response to manual lumbar traction. SUBJECTIVE: Pt reports that he had another seizure last Friday11/14/23. Pt reports that this seizure wasn't as bad, but it has set him back for sure. Pt fell on L shoulder. Pt had a kink in shoudler blades from pectoral stretch after last session. Pt states that he has shooting pain down the front of his L thigh to his knee today. Pain: Pain Pain Level: 6 Pain Location: (L ribs, LLE,back) Post Treatment Pain Post Treatment Pain Level: Better Post Treatment Pain Location: Back Post Treatment Symptoms: Decreased tightness and soreness along low back after manual traction. OBJECTIVE MEASURES WITH LEVEL OF FUNCTION: Antalgic gait with increased kyphosis. TREATMENT: Therapeutic Exercise: 1: Supine hip flexor stretch over edge of mat table 3x30 seconds LLE with therapist assisting LE. Skilled Intervention: Patient was educated in proper exercise technique and purpose for exercises. Skilled judgment was used in selection of appropriate interventions. Correct performance of therapeutic exercises was facilitated with verbal and visual cuing. Manual Therapy: 1: Manual lumbar belt traction with LE elevated on taras with caudal pull to tolerance. Skilled Intervention: Manual skills to improve joint mobility, ROM, and decrease pain. Utilized anatomy knowledge of the therapist, and assessment of patient's response to intervention. Billing Therapeutic Exercise Treatment Minutes: 15 Manual TherapyTreatment Minutes: 12 Skilled Treatment Time Minutes (timed and untimed codes): 27 Total Session Time (minutes): 27 Session Start Time : 1147 Session Stop Time : 1214 CYRUS Roberson, NICOLE [facility] 11-21-2023 History of Presen t illness Narrative Episode Visit Count: 3 Therapist That Will Accept/Oversee The Plan Of Care: Tiffanie Conklin Start of Care Date: 11/05/23 Onset Date: 10/13/23 Plan of Care Certification Date: 11/05/23 Next Certification Due Date: 01/04/24 Patient Identified by Name and Date of : Yes REHABILITATION AND SPORTS THERAPY PHYSICAL THERAPY TREATMENT NOTE ASSESSMENT: Can Brown tolerated the session with decreased symptoms. He demonstrated improvements in low back pain with manual lumbar traction. The patient will continue to benefit from ongoing skilled physical therapy to progress toward set goals. PLAN FOR NEXT VISIT: Asses duration and prolonged response to manual lumbar traction. SUBJECTIVE: Pt reports that he had another seizure last Friday11/14/23. Pt reports that this seizure wasn't as bad, but it has set him back for sure. Pt fell on L shoulder. Pt had a kink in shoudler blades from pectoral stretch after last session. Pt states that he has shooting pain down the front of his L thigh to his knee today. Pain: Pain Pain Level: 6 Pain Location: (L ribs, LLE,back) Post Treatment Pain Post Treatment Pain Level: Better Post Treatment Pain Location: Back Post Treatment Symptoms: Decreased tightness and soreness along low back after manual traction. OBJECTIVE MEASURES WITH LEVEL OF FUNCTION: Antalgic gait with increased kyphosis. TREATMENT: Therapeutic Exercise: 1: Supine hip flexor stretch over edge of mat table 3x30 seconds LLE with therapist assisting LE. Skilled Intervention: Patient was educated in proper exercise technique and purpose for exercises. Skilled judgment was used in selection of appropriate interventions. Correct performance of therapeutic exercises was facilitated with verbal and visual cuing. Manual Therapy: 1: Manual lumbar belt traction with LE elevated on taras with caudal pull to tolerance. Skilled Intervention: Manual skills to improve joint mobility, ROM, and decrease pain. Utilized anatomy knowledge of the therapist, and assessment of patient's response to intervention. Billing Therapeutic Exercise Treatment Minutes: 15 Manual TherapyTreatment Minutes: 12 Skilled Treatment Time Minutes (timed and untimed codes): 27 Total Session Time (minutes): 27 Session Start Time : 1147 Session Stop Time : 1214 CYRUS Roberson PT documented in this encounter [facility] 11-18-2023 Note HNO ID: [id number] Author: YUNIER BEATTY RT(Lorie) Service: Radiology Author Type: Technologist Type: Progress Notes Filed: 11/18/2023 15:19 Note Text: Radiology Service Progress Note PATIENT NAME: Can Brown DATE OF SERVICE: November 18, 2023 TIME: 2:56 PM PATIENT IDENTITY VERIFICATION COMPLETED USING TWO (2) IDENTIFIERS: Name and Date of confirmed by patient verbally. FALL SCREENING: Has the patient had 2 falls in the last year or 1 fall with injury or currently using an Ambulatory Assistive Device (Walker, Cane, Wheelchair, Crutches, etc.)? Yes, Patient High Risk for Falls What interventions were put in place to prevent falls during this visit? Instructed Patient to Call for Help if Needed, Offered Assistance with Transfers/Clothing, and Increased Observations by Caregivers PATIENT GENDER DATA: Male PATIENT RELEVANT IMPLANT DATA REVIEWED: Yes PATIENT PRESENTS WITH AN IMPLANTABLE OR ATTACHED FOREIGN CLERK: No RADIOLOGY DEPARTMENT: General X-ray: Exam(s) Completed: Chest X-Ray Pelvis X-Ray: Pelvis with Hip Left Upper Extremity X-Ray(s): Shoulder, AP / TRUE AP left PERIPHERAL IV DATA: Not applicable SIGNED BY: RT Logan(R) November 18, 2023 2:56 PM [facility] 11-18-2023 Note HNO ID: [id number] Author: LAZARA MCLEOD APRN.ORGANIC PREPARATION ANALYST Service: ? Author Type: Nurse Specialist Type: Progress Notes Filed: 11/18/2023 14:44 Note Text: SUBJECTIVE: Hepatitis B Vaccine(1 of 3 - 3-dose series) Never done Pneumococcal Vaccine(1 of 2 - PCV) Never done DTaP,Tdap,Td Vaccine(2 - Td or Tdap) due on 12/02/2021 HPI HPI excerpted from last visit: Can Brown is a 40 year old male. He presents with his sister today. Notes anxiety and depression currently seems uncontrolled. Does not feel counseling center is meeting his needs currently. Not a good fit. Notes visits usually every 3 months. Notes they are titrating medications currently. He is interested in seeing an alternate provider. He would like to stay local if he could. No voiced SI or HI. His sister notes that quality of life seems low due to this. Has recently been seen in epilepsy [facility] for seizure. Today reports that he had a seizure October 13 was seen at [facility] for that. Reports he bit his tongue and had to have this repaired. Reports missing medications in September with subsequent seizure October 13. States that he had a second seizure October 14. He reports unwitnessed tonic-clonic type seizure where he fell on left shoulder left side of his chest left shoulder and left hip. He notes pain in all of these area that is moderately severe. States pain with deep breath. States difficulty walking. States did not return to [facility] following the seizure. States taking ibuprofen and Tylenol which is not helping much. He requests refill of Flexeril Percocet and Toradol. States he has an upcoming appointment with neurology. States prefers to not go to the emergency department at this time. Review of Systems Constitutional: Negative. Respiratory: Negative. Cardiovascular: Negative. Musculoskeletal: Positive for arthralgias. Neurological: Positive for seizures. Psychiatric/Behavioral: Negative for dysphoric mood. The patient is not nervous/anxious. Objective BP 112/70 Pulse 76 Resp 16 Wt 104.8 kg (231 lb) SpO2 96% BMI 35.12 kg/m? Physical Exam Vitals and nursing note reviewed. Constitutional: Appearance: Normal appearance. HENT: Head: Normocephalic and atraumatic. Eyes: Conjunctiva/sclera: Conjunctivae normal. Cardiovascular: Rate and Rhythm: Normal rate and regular rhythm. Heart sounds: Normal heart sounds. Comments: no chest wall tenderness, no crepitus, good air exchange Pulmonary: Effort: Pulmonary effort is normal. Breath sounds: Normal breath sounds. Musculoskeletal: Left shoulder: Tenderness present. Decreased range of motion. Left hip: Tenderness present. Decreased range of motion. Skin: General: Skin is warm and dry. Neurological: Mental Status: He is alert. Mental status is at baseline. Psychiatric: Mood and Affect: Mood is anxious and depressed. ALLERGIES Allergen Reactions Penicillins throat swelling Prednisone Intolerance joint pain Vicodin [Hydrocodon* Cough chestpain MEDICATIONS: cyclobenzaprine (FLEXERIL) 10 mg tablet Take 1 tablet by mouth three times a day as needed for muscle spasm. oxyCODONE-acetaminophen (PERCOCET) 5-325 mg tablet Take 1-2 tablets by mouth every 6 hours as needed for pain for up to 7 days. As needed as directed keTORolac (TORADOL) 10 mg tablet Take 1 tablet by mouth every 6 hours as needed. lamoTRIgine (LAMICTAL) 150 mg tablet Take 2 tablets by mouth two times a day. QUEtiapine XR (SEROQUEL XR) 150 mg Tb24 Take 150 mg by mouth daily at bedtime. loratadine (CLARITIN) 10 mg tablet Take 1 tablet by mouth once daily as needed. As directed ALPRAZolam (XANAX) 0.5 mg tablet Take 1 tablet by mouth twice daily. (From counseling center) Cholecalciferol, Vitamin D3, 50 mcg (2,000 unit) cap Take 1 capsule by mouth once daily. traZODone (DESYREL) 150 mg tablet Take 1 tablet by mouth daily at bedtime. albuterol HFA (PROVENTIL HFA, VENTOLIN HFA) 90 mcg/actuation inhaler Inhale 2 Puffs as instructed every 4 hours as needed for wheezing/shortness of breath. acetaminophen (TYLENOL) 500 mg tablet Take 2 tablets by mouth every 6 hours as needed for pain. PAST MEDICAL HISTORY Diagnosis Date Cannabis use disorder, mild, abuse 03/04/2019 noted per counseling center Depressive disorder, not elsewhere classified DVT (deep venous thrombosis) (HCC) after ankle surgery Dysmetabolic syndrome X 05/15/2011 Esophageal reflux 12/09/2007 Generalized anxiety disorder Anxiety, Generalized BLAIRE (Obstructive Sleep Apnea) 09/18/2009 Tobacco use disorder 04/26/2009 Social History Tobacco Use Smoking status: Every Day Packs/day: 1.00 Years: 20.00 Additional pack years: 0.00 Total pack years: 20.00 Types: Cigarettes Smokeless tobacco: Never Vaping Use Vaping Use: Never used Substance Use Topics Alcohol use: Not Currently Alcohol/week: 6.0 standard drinks of alcohol Types: 6 Cans o (more content not included)... [facility] 11-18-2023 History of Presen t illness Narrative SUBJECTIVE: Hepatitis B Vaccine(1 of 3 - 3-dose series) Never done Pneumococcal Vaccine(1 of 2 - PCV) Never done DTaP,Tdap,Td Vaccine(2 - Td or Tdap) due on 12/02/2021 HPI HPI excerpted from last visit: Can Brown is a 40 year old male. He presents with his sister today. Notes anxiety and depression currently seems uncontrolled. Does not feel counseling center is meeting his needs currently. Not a good fit. Notes visits usually every 3 months. Notes they are titrating medications currently. He is interested in seeing an alternate provider. He would like to stay local if he could. No voiced SI or HI. His sister notes that quality of life seems low due to this. Has recently been seen in epilepsy [facility] for seizure. Today reports that he had a seizure October 13 was seen at [facility] for that. Reports he bit his tongue and had to have this repaired. Reports missing medications in September with subsequent seizure October 13. States that he had a second seizure October 2. He reports unwitnessed tonic-clonic type seizure where he fell on left shoulder left side of his chest left shoulder and left hip. He notes pain in all of these area that is moderately severe. States pain with deep breath. States difficulty walking. States did not return to [facility] following the seizure. States taking ibuprofen and Tylenol which is not helping much. He requests refill of Flexeril Percocet and Toradol. States he has an upcoming appointment with neurology. States prefers to not go to the emergency department at this time. Review of Systems Constitutional: Negative. Respiratory: Negative. Cardiovascular: Negative. Musculoskeletal: Positive for arthralgias. Neurological: Positive for seizures. Psychiatric/Behavioral: Negative for dysphoric mood. The patient is not nervous/anxious. Objective BP 112/70 Pulse 76 Resp 16 Wt 104.8 kg (231 lb) SpO2 96% BMI 35.12 kg/m Physical Exam Vitals and nursing note reviewed. Constitutional: Appearance: Normal appearance. HENT: Head: Normocephalic and atraumatic. Eyes: Conjunctiva/sclera: Conjunctivae normal. Cardiovascular: Rate and Rhythm: Normal rate and regular rhythm. Heart sounds: Normal heart sounds. Comments: no chest wall tenderness, no crepitus, good air exchange Pulmonary: Effort: Pulmonary effort is normal. Breath sounds: Normal breath sounds. Musculoskeletal: Left shoulder: Tenderness present. Decreased range of motion. Left hip: Tenderness present. Decreased range of motion. Skin: General: Skin is warm and dry. Neurological: Mental Status: He is alert. Mental status is at baseline. Psychiatric: Mood and Affect: Mood is anxious and depressed. ALLERGIES Allergen Reactions Penicillins throat swelling Prednisone Intolerance joint pain Vicodin [Hydrocodon* Cough chestpain MEDICATIONS: cyclobenzaprine (FLEXERIL) 10 mg tablet Take 1 tablet by mouth three times a day as needed for muscle spasm. oxyCODONE-acetaminophen (PERCOCET) 5-325 mg tablet Take 1-2 tablets by mouth every 6 hours as needed for pain for up to 7 days. As needed as directed keTORolac (TORADOL) 10 mg tablet Take 1 tablet by mouth every 6 hours as needed. lamoTRIgine (LAMICTAL) 150 mg tablet Take 2 tablets by mouth two times a day. QUEtiapine XR (SEROQUEL XR) 150 mg Tb24 Take 150 mg by mouth daily at bedtime. loratadine (CLARITIN) 10 mg tablet Take 1 tablet by mouth once daily as needed. As directed ALPRAZolam (XANAX) 0.5 mg tablet Take 1 tablet by mouth twice daily. (From counseling center) Cholecalciferol, Vitamin D3, 50 mcg (2,000 unit) cap Take 1 capsule by mouth once daily. traZODone (DESYREL) 150 mg tablet Take 1 tablet by mouth daily at bedtime. albuterol HFA (PROVENTIL HFA, VENTOLIN HFA) 90 mcg/actuation inhaler Inhale 2 Puffs as instructed every 4 hours as needed for wheezing/shortness of breath. acetaminophen (TYLENOL) 500 mg tablet Take 2 tablets by mouth every 6 hours as needed for pain. PAST MEDICAL HISTORY Diagnosis Date Cannabis use disorder, mild, abuse 03/04/2019 noted per counseling center Depressive disorder, not elsewhere classified DVT (deep venous thrombosis) (HCC) after ankle surgery Dysmetabolic syndrome X 05/15/2011 Esophageal reflux 12/09/2007 Generalized anxiety disorder Anxiety, Generalized BLAIRE (Obstructive Sleep Apnea) 09/18/2009 Tobacco use disorder 04/26/2009 Social History Tobacco Use Smoking status: Every Day Packs/day: 1.00 Years: 20.00 Additional pack years: 0.00 Total pack years: 20.00 Types: Cigarettes Smokeless tobacco: Never Vaping Use Vaping Use: Never used Substance Use Topics Alcohol use: Not Currently Alcohol/week: 6.0 standard drinks of alcohol Types: 6 Cans of Beer (12oz) per week Comment: Drinking less Drug use: Yes Types: Marijuana Comment: Marajuana - socially Component Latest Ref Rng & Units 05/25/2019 12/14/2019 02/15/2020 12/01/2020 WBC 3.70 - 11.00 k/uL 8.23 12.88 (H) 12.54 (H) RBC 4.20 - 6.00 m/uL 5.32 5.30 5.30 Hemoglobin 13.0 - 17.0 g/dL 16.9 16.9 16.9 Hematocrit 39.0 - 51.0 % 51.2 (H) 50.0 48.7 MCV 80.0 - 100.0 fL 96.2 94.3 91.9 MCH 26.0 - 34.0 pG 31.8 31.9 31.9 MCHC 30.5 - 36.0 g/dL 33.0 33.8 34.7 RDW-CV 11.5 - 15.0 % 13.2 12.9 13.0 Platelet Count 150 - 400 k/uL 223 197 229 MPV 9.0 - 12.7 fL 11.4 11.0 9.8 Neut% % 63.0 71.7 69.4 Abs Neut (ANC) 1.45 - 7.50 k/uL 5.19 9.24 (H) 8.70 (H) Lymph% % 26.9 21.3 23.5 Abs Lymph 1.00 - 4.00 k/uL 2.21 2.74 2.95 [place]% % 8.4 5.7 5.7 Abs [place] <0.87 k/uL 0.69 0.74 0.72 Eosin% % 0.7 0.8 0.8 Abs Eosin <0.46 k/uL 0.06 0.10 0.10 Baso% % 1.0 0.5 0.6 Abs Baso <0.11 k/uL 0.08 0.06 0.07 Nucleated Reds 0 /100 WBC 0.0 0.0 0.0 Absolute nRBC <0.01 k/uL <0.01 <0.01 <0.01 Diff Type Auto Diff Auto Diff Auto Diff Protein, Total 6.3 - 8.0 g/dL 7.5 Albumin 3.9 - 4.9 g/dL 4.6 Calcium 8.5 - 10.2 mg/dL 10.0 Bilirubin, Total 0.2 - 1.3 mg/dL 0.6 Alkaline Phosphatase 38 - 113 U/L 73 AST 14 - 40 U/L 30 Glucose 74 - 99 mg/dL 83 BUN 9 - 24 mg/dL 9 Creatinine 0.73 - 1.22 mg/dL 0.99 Sodium 136 - 144 mmol/L 139 Potassium 3.7 - 5.1 mmol/L 4.6 Chloride 97 - 105 mmol/L 102 CO2 22 - 30 mmol/L 25 Anion Gap 9 - 18 mmol/L 12 ALT 10 - 54 U/L 32 eGFR- >60 eGFR-All Other Races . >60 TSH 0.400 - 5.500 uU/mL 0.563 Lamotrigine 1 - 13 ug/mL 3.9 ASSESSMENT/PLAN: 1. Fall, initial encounter - ICD9: E888.9, ICD10: W19.XXXA (primary diagnosis) - KETOROLAC 60 MG/2 ML INTRAMUSCULAR SOLUTION - KETOROLAC 10 MG TABLET 2. Acute bilateral thoracic back pain - ICD9: 724.1, ICD10: M54.6 3. Acute chest wall pain - ICD9: 786.52, ICD10: R07.89 - KETOROLAC 60 MG/2 ML INTRAMUSCULAR SOLUTION - KETOROLAC 10 MG TABLET 4. Acute hip pain, left - ICD9: 719.45, ICD10: M25.552 - KETOROLAC 60 MG/2 ML INTRAMUSCULAR SOLUTION - KETOROLAC 10 MG TABLET 5. Acute shoulder pain due to trauma, left - ICD9: 719.41, 338.11, ICD10: M25.512, G89.11 - KETOROLAC 60 MG/2 ML INTRAMUSCULAR SOLUTION - KETOROLAC 10 MG TABLET He reports seizures October 13 of October 14 after not taking seizure medication for period of time. He reports seeking care at [facility] October 13. Reports he bit his tongue and needed this cared for on October 13. Reports did not return to the ER in October 14 for report of seizure with a fall striking left shoulder and left hip and left chest wall. States does not want to go to the emergency department today. States having moderately severe pain. Request Percocet Flexeril and Toradol. Encourage ER visit for severe pain but prefers to be seen in office later this afternoon for physical exam and Toradol shot. Continue to encourage ER visit for severe pain. PDMP reveals recent marijuana purchase. Lazara Mcleod APRN.ORGANIC PREPARATION ANALYST Medical Decision Making: Problems: Low: Acute, uncomplicated illness or injury Data: Unique test(s) ordered: 3+ Risk: Moderate: Drug management Medical Decision Making Level: 4 - Moderate documented in this encounter [facility] 11-18-2023 Note HNO ID: [id number] Author: LAZARA MCLEOD APRN.ORGANIC PREPARATION ANALYST Service: ? Author Type: Nurse Specialist Type: Progress Notes Filed: 11/18/2023 14:40 Note Text: AMBULATORY TELEPHONE VISIT Can Brown has consented to this telephone encounter. Persons Present: patient Chief Complaint/Reason: recheck after fall attributed to seizure HPI: HPI excerpted from last visit: Can Brown is a 40 year old male. He presents with his sister today. Notes anxiety and depression currently seems uncontrolled. Does not feel counseling center is meeting his needs currently. Not a good fit. Notes visits usually every 3 months. Notes they are titrating medications currently. He is interested in seeing an alternate provider. He would like to stay local if he could. No voiced SI or HI. His sister notes that quality of life seems low due to this. Has recently been seen in epilepsy [facility] for seizure. Today reports that he had a seizure October 13 was seen at [facility] for that. Reports he bit his tongue and had to have this repaired. Reports missing medications in September with subsequent seizure October 13. States that he had a second seizure October 14. He reports unwitnessed tonic-clonic type seizure where he fell on left shoulder left side of his chest and left hip. He notes pain in all of these area that is moderately severe. States pain with deep breath. States difficulty walking. States did not return to [facility] following the seizure. States taking ibuprofen and Tylenol which is not helping much. He requests refill of Flexeril Percocet and Toradol. States he has an upcoming appointment with neurology. States prefers to not go to the emergency department at this time. Review of Systems Constitutional: Negative. Musculoskeletal: Positive for arthralgias. Neurological: Positive for seizures. Psychiatric/Behavioral: Negative for suicidal ideas. The patient is nervous/anxious. Objective There were no vitals taken for this visit. Physical Exam Constitutional: Appearance: Normal appearance. HENT: Head: Normocephalic and atraumatic. Eyes: Conjunctiva/sclera: Conjunctivae normal. Pulmonary: Effort: Pulmonary effort is normal. Neurological: Mental Status: He is alert. Mental status is at baseline. ALLERGIES Allergen Reactions Penicillins throat swelling Prednisone Intolerance joint pain Vicodin [Hydrocodon* Cough chestpain MEDICATIONS: lamoTRIgine (LAMICTAL) 150 mg tablet Take 2 tablets by mouth two times a day. QUEtiapine XR (SEROQUEL XR) 150 mg Tb24 Take 150 mg by mouth daily at bedtime. loratadine (CLARITIN) 10 mg tablet Take 1 tablet by mouth once daily as needed. As directed cyclobenzaprine (FLEXERIL) 10 mg tablet Take 1 tablet by mouth three times a day as needed for muscle spasm. ALPRAZolam (XANAX) 0.5 mg tablet Take 1 tablet by mouth twice daily. (From counseling center) Cholecalciferol, Vitamin D3, 50 mcg (2,000 unit) cap Take 1 capsule by mouth once daily. albuterol HFA (PROVENTIL HFA, VENTOLIN HFA) 90 mcg/actuation inhaler Inhale 2 Puffs as instructed every 4 hours as needed for wheezing/shortness of breath. traZODone (DESYREL) 150 mg tablet Take 1 tablet by mouth daily at bedtime. acetaminophen (TYLENOL) 500 mg tablet Take 2 tablets by mouth every 6 hours as needed for pain. PAST MEDICAL HISTORY Diagnosis Date Cannabis use disorder, mild, abuse 03/04/2019 noted per counseling center Depressive disorder, not elsewhere classified DVT (deep venous thrombosis) (HCC) after ankle surgery Dysmetabolic syndrome X 05/15/2011 Esophageal reflux 12/09/2007 Generalized anxiety disorder Anxiety, Generalized BLAIRE (Obstructive Sleep Apnea) 09/18/2009 Tobacco use disorder 04/26/2009 Social History Tobacco Use Smoking status: Every Day Packs/day: 1.00 Years: 20.00 Additional pack years: 0.00 Total pack years: 20.00 Types: Cigarettes Smokeless tobacco: Never Vaping Use Vaping Use: Never used Substance Use Topics Alcohol use: Not Currently Alcohol/week: 6.0 standard drinks of alcohol Types: 6 Cans of Beer (12oz) per week Comment: Drinking less Drug use: Yes Types: Marijuana Comment: Marajuana - socially Component Latest Ref Rng AND Units 05/25/2019 12/14/2019 02/15/2020 12/01/2020 WBC 3.70 - 11.00 k/uL 8.23 12.88 (H) 12.54 (H) RBC 4.20 - 6.00 m/uL 5.32 5.30 5.30 Hemoglobin 13.0 - 17.0 g/dL 16.9 16.9 16.9 Hematocrit 39.0 - 51.0 % 51.2 (H) 50.0 48.7 MCV 80.0 - 100.0 fL 96.2 94.3 91.9 MCH 26.0 - 34.0 pG 31.8 31.9 31.9 MCHC 30.5 - 36.0 g/dL 33.0 33.8 34.7 RDW-CV 11.5 - 15.0 % 13.2 12.9 13.0 Platelet Count 150 - 400 k/uL 223 197 229 MPV 9.0 - 12.7 fL 11.4 11.0 9.8 Neut% % 63.0 71.7 69.4 Abs Neut (ANC) 1.45 - 7.50 k/uL 5.19 9.24 (H) 8.70 (H) Lymph% % 26.9 21.3 23.5 Abs Lymph 1.00 - 4.00 k/uL 2.21 2.74 2.95 [place]% % 8.4 5.7 5.7 Abs [place] <0.87 k/uL 0.69 0.74 0.72 Eosin% % 0.7 0.8 0.8 Abs Eo (more content not included)... [facility] 11-11-2023 Note HNO ID: [id number] Author: NARESH MAZARIEGOS PT Service: ? Author Type: Physical Therapist Type: Progress Notes Filed: 11/11/2023 15:29 Note Text: Episode Visit Count: 2 Therapist That Will Accept/Oversee The Plan Of Care: Rubin Tiffanie Start of Care Date: 11/05/23 Onset Date: 10/13/23 Plan of Care Certification Date: 11/05/23 Next Certification Due Date: 01/04/24 Patient Identified by Name and Date of : Yes REHABILITATION AND SPORTS THERAPY PHYSICAL THERAPY TREATMENT NOTE ASSESSMENT: Can Bronw tolerated the session with fatigue and expected muscle soreness. He demonstrated difficulty with corner pectoral stretch due to burning in ribs and pain in scapular region on L side. The patient will continue to benefit from ongoing skilled physical therapy to progress toward set goals. PLAN FOR NEXT VISIT: Continue with manual techniques and stretching if able to tolerate. SUBJECTIVE: Pt reports that his back is feeling about the same, tight muscles and aching. Pt reports that he gets cramps in his ribs and up into his pectoral muscles. Pain: Pain Pain Level: 5 Pain Location: ( all over, but mostly the ribs ) Description: Spasm, Aching, Sharp Frequency: Continuous Post Treatment Pain Post Treatment Pain Level: No Change OBJECTIVE MEASURES WITH LEVEL OF FUNCTION: Spastic tone noted with palpation to musculature today TREATMENT: Therapeutic Exercise: 1: Corner pectoral stretch 3x20 seconds (burning in ribs, caused pain in L scapular region) 2: Thoracic rotations in sitting due to pain with corener pectoral stretch 3: Scapular retractions x 10 Skilled Intervention: Patient was educated in proper exercise technique and purpose for exercises. Skilled judgment was used in selection of appropriate interventions. Correct performance of therapeutic exercises was facilitated with verbal and visual cuing. Manual Therapy: 1: Positioned pt in sitting with pillows propped under face support to modified prone trunk position of comfort. Performed foam rolling techniques for soft tissue restrictions in thoracic musculature, pressure to pt tolerance. Skilled Intervention: Manual skills to improve joint mobility, ROM, and decrease pain. Utilized anatomy knowledge of the therapist, and assessment of patient's response to intervention. Billing Therapeutic Exercise Treatment Minutes: 12 Manual TherapyTreatment Minutes: 18 Skilled Treatment Time Minutes (timed and untimed codes): 30 Total Session Time (minutes): 30 Session Start Time : 1315 Session Stop Time : 1345 Mirna Lowry, CYRUS Mazariegos, PT [facility] 11-05-2023 Note HNO ID: [id number] Author: ROSY BATES PA-C Service: ? Author Type: Physician Imposer Type: Progress Notes Filed: 11/05/2023 14:37 Note Text: [facility] Patient Name: Can Brown Date of : 1980 CLINIC NOTE - FOLLOW UP VISIT virtual visit I have communicated my name and active licensure. The patient's identity and physical location were verified at the time of this visit. Either the patient or their legal kiosk sales representative has been informed of the risks and benefits of -- and alternatives to -- treatment through a remote evaluation and consents to proceed with the evaluation remotely. CHIEF COMPLAINT: follow up PRESENT ILLNESS: This is a 43 year old right-handed male who has history of bipolar disorder and anxiety (has established local psychiatrist), and he has No family history [...] w/wo 11/16/2019: unremarkable .He completed EEG at [facility] on 01/03/2020 with a normal results. He has bipolar disorder, and was on Lamotrigie 200 mg am. At [facility] visit on 12/31/2019, his Lamotrigitne was planned to increased to 200 mg bid, then 300 mg bid based on Lamotrigine level. At virtual visit on 11/05/2023: Patient had breakthrough seizure on 10/13/2023. Reports he was outside talking to sister in driveway, told her he felt dizzy/lightheaded, then he got tunnel vision. Next he suddenly had LOC and fell to ground. Reports he suffered back injury with compression in spine and tongue bite (required 6 stiches), no head injury. He is currently in PT for back injury. Endorses he has been inconsistent with taking his anti-seizure medication. In the month of September 2023 he estimates he missed 10-15 days of medication. Confirms missing medications in the couple days leading up to seizure. He has since resumed taking Lamotrigine 300 mg BID, denies any side effects. No prior side effects that led him to not take consistently, he was unsure if he needed medication. Continues to follow with local mental health provider for bipolar disorder ([facility]). Currently taking Trintellix, Xanax, and Seroquel, will be coming off Seroquel soon. 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 PREVIOUS EVALUATIONS: EEG Long ([facility] 01/04/2020): Normal Brain MRI W/WO ([facility], 11/16/2019): unremarkable PAST MEDICAL HISTORY: PAST MEDICAL HISTORY [...] HISTORY Procedure Laterality Date APPENDECTOMY 1998 NEUROPLASTY AND/TRANSPOS MEDIAN NRV CARPAL TUNNE Left 05/12/2018 Carpal tunnel decomp PAST SURGICAL HISTORY OF 2002 Right Ankle - Pins PAST SURGICAL HISTORY OF Left 07/30/2018 left cubital tunnel release FAMILY MEDICAL HISTORY: FAMILY HISTORY Problem Relation Age of Onset Heart Mother Brain Tumor (non cancerous), Skin Cancers, Open Heart Coronary Artery Disease Mother Heart Father Hypertension Father oth (more content not included)... [facility] 11-05-2023 Note HNO ID: [id number] Author: TIFFANIE CONKLIN, PT Service: ? Author Type: Physical Therapist Type: Progress Notes Filed: 11/05/2023 14:16 Note Text: Episode Visit Count: 1 Therapist That Will Accept/Oversee The Plan Of Care: Tiffanie Conklin Start of Care Date: 11/05/23 Onset Date: 10/13/23 Plan of Care Certification Date: 11/05/23 Next Certification Due Date: 01/04/24 Patient Identified by Name and Date of : Yes [facility] PHYSICAL THERAPY EVALUATION PLAN OF CARE: Assessment: Can Brown presents with diagnosis of back strain and acute, B thoracic back pain that interferes with recreational activities, walking, reaching overhead, use hand with arm at shoulder level (breathing, any kind of stretching) . He presents with impairments in flexibility, overall function, posture, range of motion, symptom management, tissue tenderness, and soft tissue restrictions. PROMIS? (Patient-Reported Outcomes Measurement Information System) scores were reviewed and all domains identified as a rehabilitation concern. Prognosis for therapy is Good due to: current objective clinical presentation, Prognosis may be limited due to limited tolerance to activity . He will benefit from skilled therapy services to meet the goals established for this plan of care as noted below. Goals for Episode of Care: created on 11/05/23 through 01/04/24 [place] in home exercise program. Patient will decrease pain rating by 2 points to meet minimal clinical important difference for numeric pain rating scale. Patient will increase active ROM of spine to fwd flex fingertips to mid-distal thighs, lateral flexion 15-20 deg to allow pt to to improve performance of ADLs. Perform recreational activities;walking;reaching overhead;use hand with arm at shoulder level; breathing, with decreased report of symptoms/pain in 4-8 weeks. Improve postural awareness. Patient Goals: To get the muscles relaxed and make the pain go away. Planned Interventions, Frequency, and Duration: Current Frequency: 2x/week Duration: 8 weeks Total Number of Visits Planned: 16 Planned Treatment Interventions: Therapeutic exercise (81577), Neuromuscular re-education (60601), Manual therapy (79502), Self-alf management (08055), Patient/Family/Caregiver Education PLAN FOR NEXT VISIT: Assess response to initial treatment. Further assess spinal involvement in symptoms if pt tolerates testing movements. May continue with manual techniques and HEP. May assess for appropriateness of dry needling treatments. Patient demonstrates good understanding of plan of care and treatment. The above goals and plan of care were discussed and agreed upon by patient/family. SUBJECTIVE: Pt reports having a seizure on Oct 13, and caused back pain with muscle spasms. Initially describes thoracic paraspinals, behind and below the shoulder blades as location of greatest pain so much that he could barely walk. Currently the back pain is minimal, but the muscle spasms in anterior and lateral ribs R>L are what are most painful. Pt notes some days are worse than others. Pain even with breathing. (Of note: Pt states that he has to leave this location at 10:50 for another medical appointment at other location.) Patient Goals: To get the muscles relaxed and make the pain go away. Functional Limitations: recreational activities, walking, reaching overhead, use hand with arm at shoulder level (breathing, any kind of stretching) Relevant History Right or Left Handed: Right Intake Information: Prescription present Previous Treatment: NSAIDs , Muscle relaxer (Ibuprofen and flexeral) Spine History Sleeping Position: Side lying right, Side lying left Sleep Affected by Pain: Pain awakens (some nights wakes up d/t pain) Pain: Pain Pain Level: 5 ( Yesterday was at least a 7. ) Pain Location: Chest - Right, Chest - Left ( rib cage ) Description: Spasm, Aching, Sharp Frequency: Continuous Post Treatment Pain Post Treatment Pain Level: No Change PROMIS Scales Higher is Better 06/17/2021 12/03/2019 Phys Func - Score 38 (moderate dysfunction) 33 (moderate dysfunction) Phys Func - Percentile 12% 4% Self-Eff Symptom - Score 32 (Low) - Self-Eff Symptom - Percentile 4% - T-scores: mean of general population = 50. 5 points is clinically meaningfully difference Percentiles provide an indication of how the patient's score ranks in relation to the general population. Higher percentile rankings indicate better function/quality of life. 50th percentile is the average of the general population and indicates half of respondents had a worse score. OBJECTIVE MEASURES WITH LEVEL OF FUNCTION: Posture / Alignment Posture: (Pt very guarded in trunk posture and movements. Keeps arms close to body, avoids trunk or neck rotation.) Spine Observations R Thoracic Spine Palpation Tenderness: Paraspinals, Inferior angle- Scapula, Medial (more content not included)... [facility] 10-27-2023 Note HNO ID: [id number] Author: RELL ARREOLA MD Service: ? Author Type: Physician Type: Progress Notes Filed: 11/30/2023 16:27 Note Text: This note was created using [email or web address]riter. Subjective Can Brown is a 43 year old male. Patient presents with: Established Patient: Discuss back pain and possible Toradol injection SUBJECTIVE: Can Brown is a 43 year old year old gentleman here today for follow up appointment for review of medical conditions. Ongoing back pain. Noted pain moves around. Sometimes one side of ribs, sometimes bother sides. Still hurts to take deep breaths. If puts pillows on recliner, then pain is tolerable. Not able to lay back for long--not able to turn over in bed well. Gets about 4 to 5 hours of sleep normally. Not hurting in front now. PAST MEDICAL HISTORY Diagnosis Date Cannabis use disorder, mild, abuse 03/04/2019 noted per counseling center Depressive disorder, not elsewhere classified DVT (deep venous thrombosis) (HCC) after ankle surgery Dysmetabolic syndrome X 05/15/2011 Esophageal reflux 12/09/2007 Generalized anxiety disorder Anxiety, Generalized BLAIRE (Obstructive Sleep Apnea) 09/18/2009 Tobacco use disorder 04/26/2009 Current Outpatient Medications Medication Sig QUEtiapine XR (SEROQUEL XR) 150 mg Tb24 Take 150 mg by mouth daily at bedtime. loratadine (CLARITIN) 10 mg tablet Take 1 tablet by mouth once daily as needed. As directed cyclobenzaprine (FLEXERIL) 10 mg tablet Take 1 tablet by mouth three times a day as needed for muscle spasm. oxyCODONE-acetaminophen (PERCOCET) 5-325 mg tablet Take 1 tablet by mouth five times a day for 7 days. As needed as directed ibuprofen (MOTRIN) 800 mg tablet Take 1 tablet by mouth every 8 hours as needed for pain. lamoTRIgine (LAMICTAL) 150 mg tablet Take 2 tablets by mouth two times a day. Need appointment, call [phone] to schedule ALPRAZolam (XANAX) 0.5 mg tablet Take 1 tablet by mouth twice daily. (From counseling center) Cholecalciferol, Vitamin D3, 50 mcg (2,000 unit) cap Take 1 capsule by mouth once daily. traZODone (DESYREL) 150 mg tablet Take 1 tablet by mouth daily at bedtime. albuterol HFA (PROVENTIL HFA, VENTOLIN HFA) 90 mcg/actuation inhaler Inhale 2 Puffs as instructed every 4 hours as needed for wheezing/shortness of breath. acetaminophen (TYLENOL) 500 mg tablet Take 2 tablets by mouth every 6 hours as needed for pain. No current facility-administered medications for this visit. Review of Systems Objective BP 112/62 Pulse 82 Temp 37.6 ?C (99.6 ?F) Resp 18 Wt 106.6 kg (235 lb) SpO2 99% BMI 35.73 kg/m? Physical Exam Constitutional: General: He is not in acute distress. Appearance: Normal appearance. He is not toxic-appearing. Comments: In obvious pain from back. Hard to sit still or get comfortable. Musculoskeletal: Thoracic back: Spasms and tenderness present. Back: Comments: Some tenderness over midspine between shoulder blades. Neurological: Mental Status: He is alert. Assessment and Plan ASSESSMENT/PLAN: 1. Back strain, subsequent encounter - ICD9: V58.89, 847.9, ICD10: S39.012D (primary diagnosis) Ongoing back pain - Patient given instructions use of medications as ordered, intermittent rest, improved posture, intermittent use of heat, and toradol shot today followed by toradol pills up to 5 days as discussed. - Follow up in PRN if symptoms persist or worsen - KETOROLAC 60 MG/2 ML INTRAMUSCULAR SOLUTION - KETOROLAC 10 MG TABLET - CONSULT TO PHYSICAL THERAPY 2. Acute bilateral thoracic back pain - ICD9: 724.1, ICD10: M54.6 Ongoing back pain as noted above - KETOROLAC 60 MG/2 ML INTRAMUSCULAR SOLUTION - KETOROLAC 10 MG TABLET - CONSULT TO PHYSICAL THERAPY - OXYCODONE-ACETAMINOPHEN 5 MG-325 MG TABLET 3. Acute chest wall pain - ICD9: 786.52, ICD10: R07.89 Chest pain due to musculoskeletal issues as discussed. Front chest wall pain resolved. Treatment as noted above. - OXYCODONE-ACETAMINOPHEN 5 MG-325 MG TABLET Extended percocet prescription for severe pain. Further evaluation and treatment as indicated. I spent a total of 23 minutes on the date of the service which included [id number] patient care, completing clinical documentation, obtaining and/or reviewing separately obtained history, performing a medically appropriate examination, counseling and educating the patient/family/caregiver, and ordering medications, tests, or procedures. Rell Arreola MD [facility] 10-27-2023 History of Presen t illness Narrative Images from the original note were not included. This note was created using [email or web address]. Subjective Can Brown is a 43 year old male. Patient presents with: Established Patient: Discuss back pain and possible Toradol injection SUBJECTIVE: Can Brown is a 43 year old year old gentleman here today for follow up appointment for review of medical conditions. Ongoing back pain. Noted pain moves around. Sometimes one side of ribs, sometimes bother sides. Still hurts to take deep breaths. If puts pillows on recliner, then pain is tolerable. Not able to lay back for long--not able to turn over in bed well. Gets about 4 to 5 hours of sleep normally. Not hurting in front now. PAST MEDICAL HISTORY Diagnosis Date Cannabis use disorder, mild, abuse 03/04/2019 noted per counseling center Depressive disorder, not elsewhere classified DVT (deep venous thrombosis) (HCC) after ankle surgery Dysmetabolic syndrome X 05/15/2011 Esophageal reflux 12/09/2007 Generalized anxiety disorder Anxiety, Generalized BLAIRE (Obstructive Sleep Apnea) 09/18/2009 Tobacco use disorder 04/26/2009 Current Outpatient Medications Medication Sig QUEtiapine XR (SEROQUEL XR) 150 mg Tb24 Take 150 mg by mouth daily at bedtime. loratadine (CLARITIN) 10 mg tablet Take 1 tablet by mouth once daily as needed. As directed cyclobenzaprine (FLEXERIL) 10 mg tablet Take 1 tablet by mouth three times a day as needed for muscle spasm. oxyCODONE-acetaminophen (PERCOCET) 5-325 mg tablet Take 1 tablet by mouth five times a day for 7 days. As needed as directed ibuprofen (MOTRIN) 800 mg tablet Take 1 tablet by mouth every 8 hours as needed for pain. lamoTRIgine (LAMICTAL) 150 mg tablet Take 2 tablets by mouth two times a day. Need appointment, call [phone] to schedule ALPRAZolam (XANAX) 0.5 mg tablet Take 1 tablet by mouth twice daily. (From counseling center) Cholecalciferol, Vitamin D3, 50 mcg (2,000 unit) cap Take 1 capsule by mouth once daily. traZODone (DESYREL) 150 mg tablet Take 1 tablet by mouth daily at bedtime. albuterol HFA (PROVENTIL HFA, VENTOLIN HFA) 90 mcg/actuation inhaler Inhale 2 Puffs as instructed every 4 hours as needed for wheezing/shortness of breath. acetaminophen (TYLENOL) 500 mg tablet Take 2 tablets by mouth every 6 hours as needed for pain. No current facility-administered medications for this visit. Review of Systems Objective BP 112/62 Pulse 82 Temp 37.6 C (99.6 F) Resp 18 Wt 106.6 kg (235 lb) SpO2 99% BMI 35.73 kg/m Physical Exam Constitutional: General: He is not in acute distress. Appearance: Normal appearance. He is not toxic-appearing. Comments: In obvious pain from back. Hard to sit still or get comfortable. Musculoskeletal: Thoracic back: Spasms and tenderness present. Back: Comments: Some tenderness over midspine between shoulder blades. Neurological: Mental Status: He is alert. Assessment and Plan ASSESSMENT/PLAN: 1. Back strain, subsequent encounter - ICD9: V58.89, 847.9, ICD10: S39.012D (primary diagnosis) Ongoing back pain - Patient given instructions use of medications as ordered, intermittent rest, improved posture, intermittent use of heat, and toradol shot today followed by toradol pills up to 5 days as discussed. - Follow up in PRN if symptoms persist or worsen - KETOROLAC 60 MG/2 ML INTRAMUSCULAR SOLUTION - KETOROLAC 10 MG TABLET - CONSULT TO PHYSICAL THERAPY 2. Acute bilateral thoracic back pain - ICD9: 724.1, ICD10: M54.6 Ongoing back pain as noted above - KETOROLAC 60 MG/2 ML INTRAMUSCULAR SOLUTION - KETOROLAC 10 MG TABLET - CONSULT TO PHYSICAL THERAPY - OXYCODONE-ACETAMINOPHEN 5 MG-325 MG TABLET 3. Acute chest wall pain - ICD9: 786.52, ICD10: R07.89 Chest pain due to musculoskeletal issues as discussed. Front chest wall pain resolved. Treatment as noted above. - OXYCODONE-ACETAMINOPHEN 5 MG-325 MG TABLET Extended percocet prescription for severe pain. Further evaluation and treatment as indicated. I spent a total of 23 minutes on the date of the service which included [id number] patient care, completing clinical documentation, obtaining and/or reviewing separately obtained history, performing a medically appropriate examination, counseling and educating the patient/family/caregiver, and ordering medications, tests, or procedures. Rell Arreola MD documented in this encounter [facility] 10-20-2023 Note HNO ID: [id number] Author: SUNG MARTINEZ RT(R) Service: Radiology Author Type: Technologist Type: Progress Notes Filed: 10/20/2023 15:50 Note Text: Radiology Service Progress Note PATIENT NAME: Can Brown DATE OF SERVICE: October 20, 2023 TIME: 3:35 PM PATIENT IDENTITY VERIFICATION COMPLETED USING TWO (2) IDENTIFIERS: Name and Date of confirmed by patient verbally. FALL SCREENING: Has the patient had 2 falls in the last year or 1 fall with injury or currently using an Ambulatory Assistive Device (Walker, Cane, Wheelchair, Crutches, etc.)? Yes, Patient High Risk for Falls What interventions were put in place to prevent falls during this visit? Offered Assistance with Transfers/Clothing and Instructed Patient to Remain Seated (Not on Exam Table) Until Exam PATIENT GENDER DATA: Male PATIENT RELEVANT IMPLANT DATA REVIEWED: Not Applicable RADIOLOGY DEPARTMENT: General X-ray: Exam(s) Completed: Chest X-Ray Spine X-Ray(s): Thoracic PERIPHERAL IV DATA: Not applicable SIGNED BY: RT Darren(R) October 20, 2023 3:35 PM [facility] 10-20-2023 Note HNO ID: [id number] Author: RELL ARREOLA MD Service: ? Author Type: Physician Type: Progress Notes Filed: 10/23/2023 14:42 Note Text: This note was created using [email or web address]. Subjective Can Brown is a 43 year old male. Patient presents with: ED Follow-up: [facility] ED follow up SUBJECTIVE: Can Brown is a 43 year old year old gentleman here today for ED follow up appointment for review of medical conditions. Was in ER 10/13/23. Reviewed that got lightheaded and felt like tunnel vision before passed out. Normal light breakfast. Had normal water or tea that morning. Had just fed dogs--no bending or squatting needed. Did not feel any signs of illness. No increased more than usual. Pain noted. Tongue sore from laceration--will se ENT. Back with major pain. Can barely walk. Middle and upper back, under shoulder blade and under pec. Make have landed on the right shoulder. Muscles hurt along spine. Sharp pain when tries to walk and when takes a deep breath. No lumbar or neck pain. Percocet did help take the edge off the pain. Noted that Xanax is as needed, not 4 times daily routinely. Can hold off on taking while on pain med if needed. Ibuprofen taking 400mg at a time twice daily did not help. PAST MEDICAL HISTORY Diagnosis Date Cannabis use disorder, mild, abuse 03/04/2019 noted per counseling center Depressive disorder, not elsewhere classified DVT (deep venous thrombosis) (HCC) after ankle surgery Dysmetabolic syndrome X 05/15/2011 Esophageal reflux 12/09/2007 Generalized anxiety disorder Anxiety, Generalized BLAIRE (Obstructive Sleep Apnea) 09/18/2009 Tobacco use disorder 04/26/2009 Current Outpatient Medications Medication Sig QUEtiapine XR (SEROQUEL XR) 150 mg Tb24 Take 150 mg by mouth daily at bedtime. lamoTRIgine (LAMICTAL) 150 mg tablet Take 2 tablets by mouth two times a day. Need appointment, call [phone] to schedule ALPRAZolam (XANAX) 0.5 mg tablet Take 1 tablet by mouth twice daily. (From counseling center) Cholecalciferol, Vitamin D3, 50 mcg (2,000 unit) cap Take 1 capsule by mouth once daily. traZODone (DESYREL) 150 mg tablet Take 1 tablet by mouth daily at bedtime. desvenlafaxine ER (PRISTIQ) 25 mg 24 hr tablet Take 25 mg by mouth once daily. loratadine (CLARITIN) 10 mg tablet Take 1 tablet by mouth once daily. As directed albuterol HFA (PROVENTIL HFA, VENTOLIN HFA) 90 mcg/actuation inhaler Inhale 2 Puffs as instructed every 4 hours as needed for wheezing/shortness of breath. acetaminophen (TYLENOL) 500 mg tablet Take 2 tablets by mouth every 6 hours as needed for pain. No current facility-administered medications for this visit. OBJECTIVE: Review of Systems Objective BP 112/76 Pulse 83 Temp 37.3 ?C (99.1 ?F) Resp 18 SpO2 98% Last 5 Encounter Wt Readings: Date: Wt: 12/11/2022 93.4 kg (206 lb) 06/13/2022 91.6 kg (202 lb) 11/06/2021 93.9 kg (207 lb) 12/28/2020 94.3 kg (208 lb) 05/04/2020 95.3 kg (210 lb) No waist measurement recorded Estimated body mass index is 31.32 kg/m? as calculated from the following: Height as of 05/04/20: 172.7 cm (5' 8 ). Weight as of 12/11/22: 93.4 kg (206 lb). Last 5 Encounter BP Readings: Date: BP: 10/20/2023 112/76 12/11/2022 118/76 06/13/2022 112/66 11/06/2021 106/60 12/28/2020 124/62 Physical Exam Vitals reviewed. Constitutional: Appearance: Normal appearance. Eyes: Conjunctiva/sclera: Conjunctivae normal. Cardiovascular: Rate and Rhythm: Normal rate and regular rhythm. Heart sounds: Normal heart sounds. Pulmonary: Effort: Pulmonary effort is normal. Breath sounds: Normal breath sounds. Chest: Chest wall: Tenderness (Along right MCL) present. Musculoskeletal: Thoracic back: Spasms and tenderness present. Back: Right lower leg: No edema. Left lower leg: No edema. Skin: General: Skin is warm and dry. Neurological: General: No focal deficit present. Mental Status: He is alert and oriented to person, place, and time. Psychiatric: Mood and Affect: Mood normal. Behavior: Behavior normal. Thought Content: Thought content normal. Judgment: Judgment normal. Assessment and Plan Encounter Diagnosis ICD-10-CM 1. Acute bilateral thoracic back pain M54.6 XR THORACIC GENERAL 3V AP/LAT/SWIMMERS oxyCODONE-acetaminophen (PERCOCET) 5-325 mg tablet ibuprofen (MOTRIN) 800 mg tablet 2. Acute chest wall pain R07.89 XR CHEST 2V FRONTAL/LAT oxyCODONE-acetaminophen (PERCOCET) 5-325 mg tablet ibuprofen (MOTRIN) 800 mg tablet 3. Acute right-sided low back pain without sciatica M54.50 ibuprofen (MOTRIN) 800 mg tablet 4. Leukocytosis, unspecified type D72.829 CBC + DIFF 5. Encounter for long-term current use of medication Z79.899 COMP METABOLIC PANEL 6. Low serum bicarbonate R79.89 COMP METABOLIC PANEL Above issues addressed with patient. Patient involved in shared decision making for management of medical issues. History an (more content not included)... [facility] 04-09-2023 Miscellaneous Notes The following approved medication requests have been transmitted electronically. Requested Prescriptions Signed Prescriptions Disp Refills lamoTRIgine (LAMICTAL) 150 mg tablet 360 tablet 0 Sig: Take 2 tablets by mouth twice daily. Need appointment, call [phone] to schedule Authorizing Provider: BRANDY HEARN APRN.CNP Prescription Refill: Requested by: pharmacy Please E-Scribe Caller Contact Number: Pharmacy Name: [facility]acy Number: [phone] Generic/ brand: 30 or 90 day supply requested: 90 Last appointment: 02/26/22 Next Appointment: none; sent to schedulers Patient of Dr. Ramirez documented in this encounter [facility] 12-12-2022 Miscellaneous Notes Spoke to the patient, he is going to explore other options at this time. Did request to be added to wait list. Patient needs approved for behavioral health. No provider name was specified documented in this encounter [facility] 12-11-2022 Note HNO ID: [id number] Author: Rell Arreola MD Service: ? Author Type: Physician Type: Progress Notes Filed: 01/13/2023 12:30 AM Note Text: This note was created using [email or web address]. Subjective Can Brown is a 42 year [...] by mouth twice daily. (From counseling center) hydrOXYzine HCl (ATARAX) 25 mg tablet [...] exercise and adequate sleep. Rell Arreola MD [facility] 12-11-2022 Miscellaneous Notes Behavioral Health Social Work Progress Note Patient identified for [facility] from: PCP Reason for referral: [facility] Behavioral Health Resources: Psychiatry med management, Psychology - talk therapy [facility] encounter type: Telephone Encounter, [facility] Message Attempts to Outreach: 1 attempt Referral [...] of a change . Would prefer the [facility] for psychiatry and counseling. Discussed that the current MOBILE TESTER will be out of the office until June, is able to be on a wait list or be scheduled for that time. Patient also used to see a [facility] provider in the resident clinic several years back. Will also send additional providers to his [facility] for review: [facility] Psychiatry and Counseling Central Scheduling Call Center [phone] [facility] [address] [place] [address] [facility] [address] [place], [place] [id number] *counseling and psychiatry [facility] [address] [place], [place] [address] *counseling and psychiatry [id number] [facility] [place] [address] *counseling and psychiatry [facility] [address] [place], [place] [phone] *counseling and psychiatry [address] [place], [place] [phone] *counseling and psychiatry documented in this encounter [facility] 06-13-2022 History of Presen t illness Narrative This note was created using [email or web address]. Subjective Can Brown is a 41 year old male. Patient presents with: 6 Month Exam SUBJECTIVE: Can Brown is a 41 year old year old gentleman here today for 6 month follow up appointment for review of medical conditions. Back pain is better though not able to complete PT. Did get exercises to do. Follows yearly with Dr. Ramirez. Seen February 2022. [facility]. 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 Pain is now constly [...] 8 Total Treatment Time Minutes (timed/untimed): 50 Naresh Mazariegos PT documented in this encounter [facility] 03-05-2022 Instructions Tri Washburn APRN.CNP - 03/05/2022 8:09 PM EDT Take 800mg Ibuprofen every 8 hrs with food try muscle relaxer methocarbamol- do NOT drive or operate machinery while taking. This medication may make you drowsy. documented in this encounter [facility] 03-05-2022 History of Presen t illness [...] 2022 3:26 PM documented in this encounter [facility] 03-01-2022 History of Presen t illness Narrative Telemedicine Visit - Distance Health Virtual Visit Note Patient seen on [employer] video visit platform. Location of patient: [place] Rell Arreola MD History of Present Illness [...] Yes Types: Marijuana Comment: Marajuana - socially Current Outpatient Medications Medication Sig [...] TO PHYSICAL THERAPY red flags discussed Tri Washburn APRN.[employer]PER[employer] If you let us know who your [...] would like to continue care with a [facility] Primary Care physician, please ask your provider to place a Establish Primary Care order. Use [employer] to manage your care, wherever you are, 05/05, on your mobile device or computer. [employer] connects you to [employer] so you can access all your health information in one place and also schedule and request virtual appointments with primary care providers. documented in this encounter [facility] 02-26-2022 History of Presen t illness Narrative .[facility] Patient Name: Can Brown Date [...] w/wo 11/16/2019: unremarkable .He completed EEG at [facility] on 01/03/2020 with a normal results. He [...] feel well on Topamax. PREVIOUS EVALUATIONS: EEG: [facility] 01/04/2020: Brain MRI W/WO 11/16/2019: unremarkable PAST [...] 8 minutes Follow up 1 yr Migue Ramirez MD PhD Staff, [facility] [place], [place] cc: Primary Care Physician: Rell Arreola MD [address] [facility] [address] Referring Physician: Cee Zepeda RN MSN [employer] PL[employer] ENGINEER.CONCRETE BLOCK PLANT SUPERVISOR [address] [facility] [address] Mr. Can Brown [address] [facility] [id number] documented in this encounter [facility] 02-12-2022 Miscellaneous Notes Sent yesterday in separate encounter Brandy Hearn APRN.NOA documented in this encounter [facility] 02-11-2022 Miscellaneous Notes The following approved medication requests have been transmitted electronically. Signed Prescriptions Disp Refills lamoTRIgine (LAMICTAL) 150 mg tablet 120 tablet 0 Sig: Take 2 tablets by mouth twice daily. CASSIE: No Authorizing Provider: BRANDY HEARN APRN.CNP Prescription Refill: Requested by: pharmacy Please E-Scribe Caller Contact Number: Pharmacy Name: [facility] Pharmacy Number: [phone] Generic/ brand: generic 30 or 90 day supply requested: 90 Last appointment: 10/11/2020 Next Appointment: 02/26/[address] Ramirez documented in this encounter [facility] 01-09-2022 History of Presen t illness Narrative [...] Carpal tunnel decomp PAST SURGICAL HISTORY OF 2003 Right Ankle - Pins PAST SURGICAL HISTORY [...] Pain, Established Patient documented in this encounter [facility] documented as of this encounter (statuses as of 01/09/2022) [facility] History of Past illness Narrative* Problem Noted [...] of this encounter (statuses as of 02/11/2022) [facility] Narrative* Problem Noted [...] of this encounter (statuses as of 02/12/2022) [facility] Narrative* Problem Noted [...] of this encounter (statuses as of 02/26/2022) [facility] Narrative* Problem Noted [...] of this encounter (statuses as of 03/06/2022) [facility] Narrative* Problem Noted [...] of this encounter (statuses as of 03/06/2022) [facility] Narrative* Problem Noted Date Resolved Date Major depressive disorder, r ecurrent, severe without psychotic features 09/26/2015 10/28/2016 BLAIRE (obstructive sleep apnea) 09/18/2009 Esophageal reflux 12/09/2007 10/30/2010 Depressive disorder, not elsewhere classified 10/28/2016 Overview: 12/2012- Referral to [facility], release signed. Intake diagnoses: Depression. Symptoms of mood swings, anger, panic attacks, progressive symptoms. Sent to ED on 12/19 and sent for inpatient treatment the care of . Partial records scanned. documented as of this encounter (statuses as of 03/13/2022) [facility] Narrative* Problem Noted [...] of this encounter (statuses as of 08/08/2022) [facility] N[facility]ative* Problem Noted [...] of this encounter (statuses as of 12/12/2022) [facility] N[facility]ative* Problem Noted [...] of this encounter (statuses as of 12/12/2022) [facility] N[facility]ative* Problem Noted [...] of this encounter (statuses as of 04/09/2023) [facility] N[facility]ative* Problem Noted Date Diagnosed Date Resolved Date Major depressive disorder, r ecurrent, severe without psychotic features 09/26/2015 10/28/2016 BLAIRE (obstructive sleep apnea) 09/18/2009 05/08/2018 Esophageal reflux 12/09/2007 10/30/2010 Depressive disorder, not elsewhere classified 10/28/2016 Overview: 12/2012- Referral to Counseling [facility], release signed. Intake diagnoses: Depression. Symptoms of mood swings, anger, panic attacks, progressive symptoms. Sent to ED on 12/19 and sent for inpatient treatment the care of . Partial records scanned. documented as of this encounter (statuses as of 11/19/2023) [facility] Narrative* Problem Noted Date Diagnosed Date Resolved Date Major depressive disorder, r ecurrent, severe without psychotic features 09/26/2015 10/28/2016 BLAIRE (obstructive sleep apnea) 09/18/2009 05/08/2018 Esophageal reflux 12/09/2007 10/30/2010 Depressive disorder, not elsewhere classified 10/28/2016 Overview: 12/2012- Referral to Counsel[facility], release signed. Intake diagnoses: Depression. Symptoms of mood swings, anger, panic attacks, progressive symptoms. Sent to ED on 12/19 and sent for inpatient treatment the care of . Partial records scanned. documented as of this encounter (statuses as of 11/21/2023) [facility] Narrative* Problem Noted Date Diagnosed Date Resolved Date Major depressive disorder, r ecurrent, severe without psychotic features 09/26/2015 10/28/2016 BLAIRE (obstructive sleep apnea) 09/18/2009 05/08/2018 Esophageal reflux 12/09/2007 10/30/2010 Depressive disorder, not elsewhere classified 10/28/2016 Overview: 12/2012- Referral to Counsel[facility], release signed. Intake diagnoses: Depression. Symptoms of mood swings, anger, panic attacks, progressive symptoms. Sent to ED on 12/19 and sent for inpatient treatment the care of . Partial records scanned. documented as of this encounter (statuses as of 11/25/2023) [facility] Narrative* Problem Noted Date Diagnosed Date Resolved Date Major depressive disorder, r ecurrent, severe without psychotic features 09/26/2015 10/28/2016 BLAIRE (obstructive sleep apnea) 09/18/2009 05/08/2018 Esophageal reflux 12/09/2007 10/30/2010 Depressive disorder, not elsewhere classified 10/28/2016 Overview: 12/2012- Referral to Counsel[facility], release signed. Intake diagnoses: Depression. Symptoms of mood swings, anger, panic attacks, progressive symptoms. Sent to ED on 12/19 and sent for inpatient treatment the care of . Partial records scanned. documented as of this encounter (statuses as of 11/26/2023) [facility] Narrative* Problem Noted Date Diagnosed Date Resolved Date Major depressive disorder, r ecurrent, severe without psychotic features 09/26/2015 10/28/2016 BLAIRE (obstructive sleep apnea) 09/18/2009 05/08/2018 Esophageal reflux 12/09/2007 10/30/2010 Depressive disorder, not elsewhere classified 10/28/2016 Overview: 12/2012- Referral to Counseling Center, release signed. Intake diagnoses: Depression. Symptoms of mood swings, anger, panic attacks, progressive symptoms. Sent to ED on 12/19 and sent for inpatient treatment the care of . Partial records scanned. documented as of this encounter (statuses as of 11/28/2023) [facility] Narrative* Problem Noted Date Diagnosed Date Resolved Date Major depressive disorder, r ecurrent, severe without psychotic features 09/26/2015 10/28/2016 BLAIRE (obstructive sleep apnea) 09/18/2009 05/08/2018 Esophageal reflux 12/09/2007 10/30/2010 Depressive disorder, not elsewhere classified 10/28/2016 Overview: 12/2012- Referral to Counseling Center, release signed. Intake diagnoses: Depression. Symptoms of mood swings, anger, panic attacks, progressive symptoms. Sent to ED on 12/19 and sent for inpatient treatment the care of . Partial records scanned. documented as of this encounter (statuses as of 11/30/2023) [facility] Narrative* Problem Noted Date Diagnosed Date Resolved Date Major depressive disorder, r ecurrent, severe without psychotic features 09/26/2015 10/28/2016 BLAIRE (obstructive sleep apnea) 09/18/2009 05/08/2018 Esophageal reflux 12/09/2007 10/30/2010 Depressive disorder, not elsewhere classified 10/28/2016 Overview: 12/2012- Referral to Counseling Center, release signed. Intake diagnoses: Depression. Symptoms of mood swings, anger, panic attacks, progressive symptoms. Sent to ED on 12/19 and sent for inpatient treatment the care of . Partial records scanned. documented as of this encounter (statuses as of 12/03/2023) [facility] Narrative* Problem Noted Date Diagnosed Date Resolved Date Major depressive disorder, r ecurrent, severe without psychotic features 09/26/2015 10/28/2016 BLAIRE (obstructive sleep apnea) 09/18/2009 05/08/2018 Esophageal reflux 12/09/2007 10/30/2010 Depressive disorder, not elsewhere classified 10/28/2016 Overview: 12/2012- Referral to Counseling Center, release signed. Intake diagnoses: Depression. Symptoms of mood swings, anger, panic attacks, progressive symptoms. Sent to ED on 12/19 and sent for inpatient treatment the care of . Partial records scanned. documented as of this encounter (statuses as of 12/10/2023) [facility] Narrative* Problem Noted Date Diagnosed Date Resolved Date Major depressive disorder, r ecurrent, severe without psychotic features 09/26/2015 10/28/2016 BLAIRE (obstructive sleep apnea) 09/18/2009 05/08/2018 Esophageal reflux 12/09/2007 10/30/2010 Depressive disorder, not elsewhere classified 10/28/2016 Overview: 12/2012- Referral to Counseling Center, release signed. Intake diagnoses: Depression. Symptoms of mood swings, anger, panic attacks, progressive symptoms. Sent to ED on 12/19 and sent for inpatient treatment the care of . Partial records scanned. documented as of this encounter (statuses as of 12/10/2023) [facility] Calcaneal spur of foot, left- Primary Tendonitis, Achilles, left Achilles bursitis or tendinitis [facility] Diagnosis Recurrent seizures (HCC) Other forms of epilepsy and recurrent seizures without mention of intractable epilepsy [facility] Diagnosis Recurrent seizures (HCC) Other forms of epilepsy and recurrent seizures without mention of intractable epilepsy [facility] Diagnosis Acute right-sided low back pain without sciatica- Primary [facility] Diagnosis Acute right-sided low back pain without sciatica [facility] Diagnosis Acute bilateral low back pain with bilateral sciatica- Primary [facility]* Diagnosis Wheezing- Primary Tobacco use disorder [...] unspecified single disease [facility]* Diagnosis Recurrent seizures (HCC) Other forms of epilepsy and recurrent seizures without mention of intractable epilepsy [facility] Diagnosis Fall, initial encounter- Primary Acute bilateral thoracic back pain Acute chest wall pain Painful respiration Acute hip pain, left Acute shoulder pain due to trauma, left [facility] Diagnosis Back strain, subsequent encounter- Primary Acute bilateral thoracic back pain Acute bilateral low back pain with bilateral sciatica [facility] Diagnosis Recurrent seizures (HCC)- Primary Other forms of epilepsy and recurrent seizures without mention of intractable epilepsy Vitamin D deficiency Unspecified vitamin D deficiency [facility] Diagnosis Back strain, subsequent encounter- Primary Acute bilateral thoracic back pain Acute bilateral low back pain with bilateral sciatica [facility] Diagnosis Back strain, subsequent encounter- Primary Acute bilateral thoracic back pain Acute chest wall pain Painful respiration [facility] Diagnosis Vitamin D deficiency- Primary Unspecified vitamin D deficiency Recurrent seizures (HCC) Other forms of epilepsy and recurrent seizures without mention of intractable epilepsy [facility] Recurrent [facility] (HCC)- Primary Other forms of epilepsy and recurrent seizures without mention of intractable epilepsy documented in this encounter [facility] for referral (narrative)* Diagnostic Procedure Only (Routine) - Closed Specialty Diagnoses / Procedures Referred By Contac t Referred To Contact XR IMAGING Diagnoses Acute right-sided low back pain without sciatica Procedures XR LUMBAR GENERAL 3V AP/LAT/L5-S1 RADEX SPINE LUMBOSACRAL 2/3 VIEWS Tri Washburn APRN.CONCRETE BLOCK PLANT SUPERVISOR [address] [place] [address] Xr Imaging Referral ID Status Reason Start Date Expiration Date V isits Requested Visits Authorized [id number] Closed Auto-Generate d Referral 03/01/2022 03/31/2023 1 1 [facility] for referral (narrative)* Outpatient Procedure (Routine) - Pending Review Specialty Diagnoses / Procedures Referred By Contac t Referred To Contact [facility] Diagnoses Recurrent seizures (HCC) Procedures EPIL EEG LONG EEG EXTENDED MONITORING 61-119 MINUTES ELECTROENCEPHALOGRAM REC COMA/SLEEP ONLY Jessi Cooper APRN.CONCRETE BLOCK PLANT SUPERVISOR [address] [facility] [address] [place] [address] [facility] [address] [place] [address] Referral ID Status Reason Start Date Expiration Date Visits Requested Visits Authorized [id number] Pending Review Auto-Generat ed Referral 12/10/2023 12/10/2024 1 1 [facility] for visit Narrative* Diagnostic Procedure Only (Routine) - Closed Specialty Diagnoses / Procedures Referred By Contac t Referred To Contact XR IMAGING Diagnoses Acute right-sided low back pain without sciatica Procedures XR LUMBAR GENERAL 3V AP/LAT/L5-S1 RADEX SPINE LUMBOSACRAL 2/3 VIEWS Tri Washburn APRN.CONCRETE BLOCK PLANT SUPERVISOR [address] [place] [address] Xr Imaging Referral ID Status Reason Start Date Expiration Date V isits Requested Visits Authorized [id number] Closed Auto-Generate d Referral 03/01/2022 03/31/2023 1 1 [facility] Summary Purpose Family History No Family History Records FoundNo Family History Records FoundNo Family History Records FoundNo Family History Records FoundNo Family History Records FoundNo Family History Records FoundNo Family History Records Found Advance Directives Documents on File Type Date Recorded Patient Bale Stacker Expl anation Advance Directive(s) 07/30/2018 8:34 AM Advance Directive(s) 05/12/2018 11:26 AM Advance Directive(s) 05/04/2018 2:09 PM Advance Directive(s) 01/31/2018 11:16 AM Documents on File Type Date Recorded Patient Bale Stacker Expl anation Advance Directive(s) 07/30/2018 8:34 AM Advance Directive(s) 05/12/2018 11:26 AM Advance Directive(s) 05/04/2018 2:09 PM Advance Directive(s) 01/31/2018 11:16 AM Procedure Findings Note HNO ID: [id number]: Janis WallerService: Orthopaedic SurgeryAuthor Type: PhysicianType: Brief Op NoteFiled: 05/12/2018 2:09 PMNote Text:BRIEF OPERATIVE / PROCEDURE NOTELOG ID: [id number]/PROCEDURE DATE: 05/12/2018INCISION/PROCEDURE START TIME: 1:36 PMINCISION CLOSE/PROCEDURE END TIME: 1:57 PMSURGEON(S)/PROCEDURALIST(S) AND GLASS SANDER BELT(S):Surgeon(s) and Role: * Shoshana Waller - PrimaryAna Additional StaffSURGERY/PROCEDURE(S): left hand carpal tunnel releaseANESTHESIA: Block BierFINDINGS: compression median nerve left hand carpal canalESTIMATED BLOOD LOSS: 0 mlSPECIMENS: NoneCOMPLICATIONS: NonePRE-OP/PRE-PROCEDURE DIAGNOSIS: left carpal tunnel syndromePOST-OP/POST-PROCEDURE DIAGNOSIS: sameSIGNATURE: Shoshana Waller MD PATIENT NAME: Can BrownDATE: May 12, 2018 : 2:08 PM PAGER/CONTACT #: Note HNO ID: [id number]: Janis WallerSerchalinoe: Orthopaedic SurgeryAuthor Type: PhysicianType: Brief Op NoteFiled: 07/30/2018 8:45 AMNote Text:BRIEF OPERATIVE / PROCEDURE NOTELOG ID: [id number]/PROCEDURE DATE: 07/30/2018INCISION/PROCEDURE START TIME: 7:54 AMINCISION CLOSE/PROCEDURE END TIME: 8:30 AMSURGEON(S)/PROCEDURALIST(S) AND GLASS SANDER BELT(S):Surgeon(s) and Role: * Shoshana Waller - PrimaryRegistered Nurse Stave Planer Tender: Esthela (Rn) PETRONA RedURGERY/PROCEDURE(S): left cubital tunnel release ( ulnar nervedecompression )ANESTHESIA: GeneralFINDINGS: compression ulnar nerve at cubital tunnelESTIMATED BLOOD LOSS: 0 mlSPECIMENS: NoneCOMPLICATIONS: NonePRE-OP/PRE-PROCEDURE DIAGNOSIS: cubital tunnel left elbowPOST-OP/POST-PROCEDURE DIAGNOSIS: Cubital tunnel syndrome on left ElbowSIGNATURE: Shoshana Waller MD PATIENT NAME: Can JamesattDATE: July 30, 2018 : 8:43 AM PAGER/CONTACT #: Reason for Referral Specialty Diagnoses / Procedures Referred By Jeremiah see Referred To Contact [facility] Diagnoses Acute right-sided low back pain without sciatica Procedures CONSULT TO PHYSICAL THERAPY PHYSICAL THERAPY EVALUATION HIGH COMPLEX 45 MINS Tri Washburn APRN.CONCRETE BLOCK PLANT SUPERVISOR [address] [place] [address] [facility] [place] [address] Referral ID Status Reason Start Date Expiration Date Visits Requested Visits Authorized [id number] Authorized Auto-Generat ed Referral 10/13/2021 10/12/2022 1 1 Specialty Diagnoses / Procedures Referred By Jeremiah see Referred To Contact XR IMAGING Diagnoses Acute right-sided low back pain without sciatica Procedures XR LUMBAR GENERAL 3V AP/LAT/L5-S1 RADEX SPINE LUMBOSACRAL 2/3 VIEWS Tri Washburn APRN.CONCRETE BLOCK PLANT SUPERVISOR [address] [place] [address] Xr Imaging Referral ID Status Reason Start Date Expiration Date V isits Requested Visits Authorized [id number] Closed Auto-Generate d Referral 03/01/2022 03/31/2023 1 1 Specialty Diagnoses / Procedures Referred By Contac t Referred To Contact [facility] Diagnoses Acute bilateral low back pain with bilateral sciatica Procedures PT REHAB FOLLOW UP ORDER PT REHAB FOLLOW UP ORDER THERAPEUTIC EXERCISES RE, EA 15 MIN. Naresh Mazariegos, NICOLE [facility] [place] [address] [place] [address] Referral ID Status Reason Start Date Expiration Date Visits Requested Visits Authorized [id number] Pending Review PCP Requested Referral Auto-Generate d Referral 03/13/2022 06/11/2022 1 1 Specialty Diagnoses / Procedures Referred By Contac t Referred To Contact [facility] Diagnoses Back strain, subsequent encounter Acute bilateral thoracic back pain Procedures CONSULT TO PHYSICAL THERAPY PHYSICAL THERAPY EVALUATION HIGH COMPLEX 45 MINS Rell Arreola MD [address] [place] [address] [facility] [place] [address] [place] [id number] Referral ID Status Reason Start Date Expiration Date V isits Requested Visits Authorized [id number] Closed Auto-Generate d Referral 10/13/2023 10/12/2024 1 1 Additional Source Comments (unrecognized sect ion and content) No Status Records FoundNo Status Records FoundNo Status Records FoundNo Status Records FoundNo Status Records FoundNo Status Records FoundNo Status Records Found INFORMATION SOURCE (unrecogn ized section and content) DATE CREATED AUTHOR AUTHOR'S ORGANIZ ATION 04/08/2018 [facility] DATE CREATED AUTHOR AUTHOR'S ORGANIZ ATION 04/08/2018 [facility] DATE CREATED AUTHOR AUTHOR'S ORGANIZ ATION 04/21/2018 [facility] DATE CREATED AUTHOR AUTHOR'S ORGANIZ ATION 08/31/2018 [facility] DATE CREATED AUTHOR AUTHOR'S ORGANIZ ATION 06/04/2019 [facility] DATE CREATED AUTHOR AUTHOR'S ORGANIZ ATION 12/11/2023 [facility] Source Comments (unrecognize d section and content) In the event this informatio n is protected by the Federal Confidentiality of Alcohol and Drug Abuse Patient Records regulations: The Federal rules restrict any use of the information to criminally investigate or prosecute any alcohol or drug abuse patient.[facility] HospitalIn the event this information is protected by the Federal Confidentiality of Alcohol and Drug Abuse Patient Records regulations: The Federal rules restrict any use of the information to criminally investigate or prosecute any alcohol or drug abuse patient.[facility] HospitalIn the event this information is protected by the Federal Confidentiality of Alcohol and Drug Abuse Patient Records regulations: The Federal rules restrict any use of the information to criminally investigate or prosecute any alcohol or drug abuse patient.[facility] HospitalIn the event this information is protected by the Federal Confidentiality of Alcohol and Drug Abuse Patient Records regulations: The Federal rules restrict any use of the information to criminally investigate or prosecute any alcohol or drug abuse patient.[facility] HospitalIn the event this information is protected by the Federal Confidentiality of Alcohol and Drug Abuse Patient Records regulations: The Federal rules restrict any use of the information to criminally investigate or prosecute any alcohol or drug abuse patient.[facility] HospitalIn the event this information is protected by the Federal Confidentiality of Alcohol and Drug Abuse Patient Records regulations: The Federal rules restrict any use of the information to criminally investigate or prosecute any alcohol or drug abuse patient.[facility] HospitalIn the event this information is protected by the Federal Confidentiality of Alcohol and Drug Abuse Patient Records regulations: The Federal rules restrict any use of the information to criminally investigate or prosecute any alcohol or drug abuse patient.[facility] HospitalIn the event this information is protected by the Federal Confidentiality of Alcohol and Drug Abuse Patient Records regulations: The Federal rules restrict any use of the information to criminally investigate or prosecute any alcohol or drug abuse patient.[facility] HospitalIn the event this information is protected by the Federal Confidentiality of Alcohol and Drug Abuse Patient Records regulations: The Federal rules restrict any use of the information to criminally investigate or prosecute any alcohol or drug abuse patient.[facility] HospitalIn the event this information is protected by the Federal Confidentiality of Alcohol and Drug Abuse Patient Records regulations: The Federal rules restrict any use of the information to criminally investigate or prosecute any alcohol or drug abuse patient.[facility] HospitalIn the event this information is protected by the Federal Confidentiality of Alcohol and Drug Abuse Patient Records regulations: The Federal rules restrict any use of the information to criminally investigate or prosecute any alcohol or drug abuse patient.[facility] HospitalIn the event this information is protected by the Federal Confidentiality of Alcohol and Drug Abuse Patient Records regulations: The Federal rules restrict any use of the information to criminally investigate or prosecute any alcohol or drug abuse patient.[facility] HospitalIn the event this information is protected by the Federal Confidentiality of Alcohol and Drug Abuse Patient Records regulations: The Federal rules restrict any use of the information to criminally investigate or prosecute any alcohol or drug abuse patient.[facility] HospitalIn the event this information is protected by the Federal Confidentiality of Alcohol and Drug Abuse Patient Records regulations: The Federal rules restrict any use of the information to criminally investigate or prosecute any alcohol or drug abuse patient.[facility] HospitalIn the event this information is protected by the Federal Confidentiality of Alcohol and Drug Abuse Patient Records regulations: The Federal rules restrict any use of the information to criminally investigate or prosecute any alcohol or drug abuse patient.[facility] HospitalIn the event this information is protected by the Federal Confidentiality of Alcohol and Drug Abuse Patient Records regulations: The Federal rules restrict any use of the information to criminally investigate or prosecute any alcohol or drug abuse patient.[facility] HospitalIn the event this information is protected by the Federal Confidentiality of Alcohol and Drug Abuse Patient Records regulations: The Federal rules restrict any use of the information to criminally investigate or prosecute any alcohol or drug abuse patient.[facility] HospitalIn the event this information is protected by the Federal Confidentiality of Alcohol and Drug Abuse Patient Records regulations: The Federal rules restrict any use of the information to criminally investigate or prosecute any alcohol or drug abuse patient.[facility] HospitalIn the event this information is protected by the Federal Confidentiality of Alcohol and Drug Abuse Patient Records regulations: The Federal rules restrict any use of the information to criminally investigate or prosecute any alcohol or drug abuse patient.[facility] HospitalIn the event this information is protected by the Federal Confidentiality of Alcohol and Drug Abuse Patient Records regulations: The Federal rules restrict any use of the information to criminally investigate or prosecute any alcohol or drug abuse patient.[facility] Reason for Visit (unrecogniz ed section and [...] THERAPY EVALUATION HIGH COMPLEX 45 MINS Tri Washburn, [employer] ENGINEER.CONCRETE BLOCK PLANT SUPERVISOR [address] [place] [address] [facility] [address] [place] [id number] Referral ID Status Reason Start Date Expiration Date V isits Requested Visits Authorized [id number] Closed Auto-Generate d Referral 10/13/2021 10/12/2022 1 1 Reason Comments 6 Month Exam Reason Comments Behavioral Health Social Work Reason Comments Appointment Reason Onset Date Comments Refill Request 04/09/2023 Reason Comments Pain L side of back, shoo ting pain down L leg, L shoulder Reason Comments Physical Therapy Specialty Diagnoses / Procedures Referred By Contac t Referred To Contact [facility] Diagnoses Back strain, subsequent encounter Acute bilateral thoracic back pain Procedures PT REHAB FOLLOW UP ORDER THERAPEUTIC EXERCISES RE, EA 15 MIN. Tiffanie Conklin, PT [facility] [address] [place] [id number] Referral ID Status Reason Start Date Expiration Date Visits Requested Visits Authorized [id number] Authorized PCP Requested Referral Auto-Generate d Referral 11/06/2023 02/05/2024 16 16 Reason Comments Follow Up Seizures Reason Comments Established Patient Discuss back pain an d possible Toradol injection Reason Comments Results Reason Comments General Episodes Care Teams (unrecognized sec tion and content) Bicycle Taxi Driver Relationship Specialty Start Date End Date Rell Arreola MD [address] [place] [address] PCP - General Internal Medicine 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 Start Date End Date Rell Arreola MD [facility] [place] [address] PCP - General Internal Medicine 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 Start Date End Date Rell Arreola MD [address] [place] [address], [place] [address] PCP - General Internal Medicine 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 Start Date End Date Rell Arreola MD [address] [place] [address], [place] [address] PCP - General Internal Medicine 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 Start Date End Date Rell Arreola MD [address] [place] [address], [place] [address] PCP - General Internal Medicine 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 Start Date End Date Rell Arreola MD [address] [place] [address], [place] [address] PCP - General Internal Medicine 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 Start Date End Date Rell Arreola MD [address] [place] [address], [place] [address] PCP - General Internal Medicine 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 Start Date End Date Rell Arreola MD [address] [place] [address], [place] [address] PCP - General Internal Medicine 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 Start Date End Date Rell Arreola MD [address] [place] [address], [place] [address] PCP - General Internal Medicine 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 Start Date End Date Rell Arreola MD [address] [place] [address] PCP - General Internal Medicine 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 Start Date End Date Rell Arreola MD [address] [place] [address] PCP - General Internal Medicine 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 Start Date End Date Rell Arreola MD [address] [place] [address] PCP - General Internal Medicine 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 Start Date End Date Rell Arreola MD [address] [place] [address] PCP - General Internal Medicine 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 Start Date End Date Rell Arreola MD [address] [place] [address] PCP - General Internal Medicine 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 Start Date End Date Rell Arreola MD [address] [place] [address] PCP - General Internal Medicine 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 Start Date End Date Rell Arreola MD [address] [place] [address] PCP - General Internal Medicine 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 Continuation of ketorolac (Toradol) beyond 5 days increases the risk of developing serious adverse events. Please verify the duration of therapy for ketorolac (Toradol)., If ordered PRN for pain, patient/guardian may elect to receive this medication for higher pain levels INSTEAD of the opioid, if preferred: Yes Given 10/27/2023 1:32 PM EST 60 mg Buttocks, Left FOR RECORDS PERTAINING TO PATIENTS WHO ARE [...] BE BASED ON THE PRIMARY CLINICAL RECORDS. [employer] provides no warranty or guarantee of the accuracy or completeness of information in this document.
[2023-12-18 22:00] VITALS: BP 105/67; PULSE 69; RESP 16; O2SAT 96
[2023-12-18 22:17] VITALS: BP 114/76; PULSE 67; RESP 23; TEMP 36.4; O2SAT 92
[2023-12-22 18:07] LABS: Lamotrigine (Lamictal) Level 9.4 ug/mL (2.0-20.0)
== END 2023-12-18 22:21 | disposition home or self-care (01) ==
PROVIDERS: Emergency Provider Emergency Medicine; PCP Internal Medicine; Visit Provider Emergency Medicine
DX: G40.909 Epilepsy, unspecified, not intractable, without status epilepticus (principal); F17.210 Nicotine dependence, cigarettes, uncomplicated; Z79.899 Other long term (current) drug therapy; Z90.49 Acquired absence of other specified parts of digestive tract
CPT/HCPCS: 80048; 82542; 85025; 96361; 96374; 96375; 99285; J7030; A4216; J2405

== ENCOUNTER 2024-02-13 16:36 | Emergency (ER) | payer MEDICAID, SELFPAY ==
[2024-02-13 16:37] VITALS: BP 123/84; PULSE 64; RESP 18; TEMP 36.4; O2SAT 98; BMI 36.7
--- NOTE | 2024-02-13 17:12 | EDS_ITS ---
HPI History of Present Illness Chief Complaint: Dizziness Informant: patient and family Narrative Narrative: Patient presents with dizziness started gradually less than 24 hours ago, he states he feels like swimming and a sensation of movement but not megan spinning he states it is worse when he bends over but not necessarily with turning his head. He has sensation of pressure in his bifrontal area. He denies any diplopia but states occasionally his vision gets blurry. No feeling of lightheadedness or near syncope/syncope. He denies any earache, tinnitus, recent URI. He has a history of epilepsy and states the month before last he was in the epilepsy unit at [facility] and he had an IV in his left forearm but nothing since then. He states separately, since yesterday as well, his left upper arm has been bothering him. It is just above the antecubital fossa. He states it is swollen there but just there and not distally. He states it hurts. Family with him is asking about a blood clot in his arm. He has never had a blood clot in his arm before but he had 1 in his leg long ago no clotting disorders that he knows of. He states he has a biceps muscle/tendon injury in his left arm from 4 years or so ago so he does not use his left arm as much as his right. [id number]. He denies any recent illness, chest pain, short of breath. Patient states he had an MRI of his brain 3 days ago that was normal at another facility. [facility] Medical History Seizure Home Medications trazodone 100 mg tablet 100 mg PO QHS 01/05/18 [History Last Taken Unknown] alprazolam 0.5 mg tablet 0.5 mg PO BID 12/29/19 [History Last Taken Unknown] lamotrigine 200 mg tablet 300 mg PO Q12H SEIZURES 12/29/19 [History Last Taken Unknown] oxycodone-acetaminophen 5 mg-325 mg tablet 1 tab PO Q6H PRN PRN Pain 3 days #12 TABLETS 12/18/23 [Rx Last Taken Unknown] meclizine 25 mg tablet 25 mg PO Q8H PRN PRN Dizziness #20 tabs 02/13/24 [Rx Last Taken Unknown] metoclopramide HCl 10 mg tablet 10 mg PO Q6H PRN nausea or head pressure #10 tabs 02/13/24 [Rx Last Taken Unknown] Allergy/AdvReac Type Severity Reaction Status Date / Time acetaminophen [From Vicodin] Allergy MUSCLULAR Verified 02/13/24 16:37 CHEST PAIN hydrocodone [From Vicodin] Allergy MUSCLULAR Verified 02/13/24 16:37 CHEST PAIN Penicillins Allergy Swelling Verified 02/13/24 16:37 prednisone AdvReac Pain in Verified 02/13/24 16:37 joints Surgical History History of ankle surgery History of carpal tunnel surgery Hx of appendectomy Hx of elbow surgery Social History Smoking Status: Current every day smoker tobacco type: cigarettes ROS ROS ED Constitutional Constitutional ED: Denies chills or fever(s) Eyes Eyes: Denies change in vision or diplopia ENT ENT ED: Reports as per HPI; Denies ear pain, rhinorrhea or sore throat Cardiovascular Cardiovascular: Denies chest pain or palpitations Respiratory/Chest Respiratory/Chest: Denies cough or dyspnea Gastrointestinal Gastrointestinal: Denies abdominal pain, diarrhea, nausea or vomiting Genitourinary Genitourinary ED: Denies dysuria or hematuria Musculoskeletal Musculoskeletal: Reports extremity pain; Denies back pain or neck pain Integumentary Denies abscess or rash Neurologic Neurologic: Reports dizziness and headache(s); Denies abnormal gait, abnormal speech, focal weakness, paresthesias or weakness Psychiatric Psychiatric: Denies suicidal ideation or suicidal thoughts EXAM Physical Exam Const Vital Signs: 02/13/24 16:37 02/13/24 17:36 02/13/24 18:00 Temperature 97.6 F L Temperature Source Temporal Pulse Rate 64 91 82 Respiratory Rate 18 16 14 Blood Pressure 123/84 H 110/69 111/73 Blood Pressure Mean 97 82 85 Pulse Ox 98 100 100 Oxygen Delivery Method Room Air Room Air Room Air Positive well nourished and well developed General Appearance ED: well developed and NAD HEENT Reports TM's clear and moist mucous membranes normocephalic and atraumatic Tympanic Membrane ED: Yes TM's clear Eyes PERRL and EOMs intact bilaterally Eyes Narrative: No pathologic nystagmus. Neck full ROM and supple Chest Wall inspection of chest normal and palpation of chest normal Resp normal respiratory effort and clear to auscultation bilaterally Cardio regular rate, regular rhythm and no murmurs GI non-tender and non-distended Auscultation: normoactive bowel sounds Palpation: soft Back/Spine no CVA tenderness General Back: other FROM Extremity normal to inspection Extremity Narrative: No objective swelling of his left upper extremity although he states it is abnormal for him. In the area of interest, medial aspect of the left upper arm distally just above the antecubital fossa, basically the medial aspect of the distal biceps muscle, there is tenderness and it is normal on inspection. No palpable cords. With a slight bend in his elbow, there is no objective swelling there is no skin abnormality or erythema, and there is no dependent edema distally. Full range of motion of the elbow without any difficulty. All compartment soft and nondistended. Rest of the extremities are unremarkable. General Extremety ED: Yes tenderness; Negative for edema or pulses abnormal General Extremity: Negative for edema or pulses abnormal Neuro oriented x3, CN's II-XII intact bilaterally and no sensory deficits noted Neuro Narrative: Normal [id number] and bslc-[id number] bilaterally. Normal speech. No aphasia. NIHSS 0. Merrillan-Hallpike negative to both sides. Sensorium / Orientation: awake and alert Motor Exam: strength 5/5 throughout Psych Psych Narrative: Flat affect Skin no rashes or lesions noted and no wounds MDM MDM MDM Narrative Medical decision making narrative: It seems like this patient is having a version of vertigo. When I discussed this with him, he states I am not having vertigo. The family member is wanting me to do a test to prove this. As I discussed with them it is a clinical symptom and a clinical diagnosis. I offered a CT of the head but he declined saying he had an MRI 3 days ago that was normal. Potentially the patient somehow has a vascular headache/migraine that is causing the symptoms. He states he is never had a migraine before, and unsure why I would suggest that. As I discussed with him, I am trying to help and come up with potential reasons for his symptoms so that I can offer potential treatments. With regards to his arm, he has no reason to have a blood clot in that arm, and clinically I do not think any of this is consistent with a blood clot of any kind. The family member continued to push this however, saying that there has to be a reason for his pain, and as I discussed with them several times do not tell anyone that there is nothing wrong, but his pain seems musculoskeletal to me, and I see nothing objective to lead me to believe there could be a superficial or deep venous thrombosis here, nor abscess/infection. Is moving very well does not seem to hurt worse when he does so. Given all of this, I still offered to obtain an ultrasound of his left arm in order to rule out venous thrombosis. However at the hour they are here, that test is not available so we did a D- dimer instead, while I treated his symptoms with IV Reglan and oral meclizine to see if that helps. Indeed these medications did help. Furthermore his D-dimer came back negative refuting the need for ultrasound of his upper extremity. As I discussed with him I suspect this is something musculoskeletal and is unrelated to the vertigo. If it is related I am not sure how. I am going to prescribe him Reglan and meclizine to use as needed for symptoms until he can follow-up if symptoms persist longer than 1 week. Lab Data Attestation: I reviewed the patient's lab results. Labs: Laboratory Results - last 24 hr 02/13/24 16:50 WBC 8.8 RBC 5.34 Hgb 16.9 H Hct 48.1 MCV 90.1 MCH 31.6 MCHC 35.1 RDW Std Deviation 41.2 RDW Coeff of [place] 12.5 Plt Count 206 MPV 10.1 Immature Gran % (Auto) 0.200 Neut % (Auto) 59.1 Lymph % (Auto) 31.5 [place] % (Auto) 8.3 Eos % (Auto) 0.2 Baso % (Auto) 0.7 Absolute Neuts (auto) 5.2 Absolute Lymphs (auto) 2.76 Nucleated RBC % 0 D-Dimer Quant (PE/DVT) < 0.27 L Sodium 140 Potassium 3.9 Chloride 109 H Carbon Dioxide 27.0 Anion Gap 4 L BUN 10 Creatinine 1.06 Estim Creat Clear Calc 97.84 Est GFR (MDRD) Af Amer 98 Est GFR (MDRD) Non-Af 81 BUN/Creatinine Ratio 9.4 L Glucose 103 Calcium 9.0 Discharge Plan Triage Chief Complaint: Dizziness ED Provider: Aakash Holland Dx/Rx/DC Orders Clinical Impression: Nonspecific dizziness, Strain of left biceps Instructions: ED Vertigo, Unspecified Prescriptions: New meclizine [meclizine] 25 mg tablet 25 mg PO Q8H PRN PRN (Reason: Dizziness) Qty: 20 0RF metoclopramide HCl [metoclopramide HCl] 10 mg tablet 10 mg PO Q6H PRN (Reason: nausea or head pressure) Qty: 10 0RF No Action trazodone 100 MG tablet 100 mg PO QHS lamotrigine 200 MG tablet 300 mg PO Q12H alprazolam 0.5 MG tablet 0.5 mg PO BID oxycodone-acetaminophen 5-325 mg tablet 1 tab PO Q6H PRN PRN (Reason: Pain) 3 Days Qty: 12 0RF Primary Care Provider: Rachael Arreola Referrals: Anthony Lopez MD [Med Staff - Active Staff] - 1 Week if not improving Rachael Arreola MD [Primary Care Provider] - Disposition Disposition: Home, Self Care
[2024-02-13 17:18] LABS: Absolute Lymphocyte Count 2.76 X10^3/uL (0.83-4.51); Absolute Neutrophil Count 5.2 X10^3/uL (2.0-7.7); Basophil# 0.06 X10^3/uL; Basophil% 0.7 % (0-1); Eosinophil# 0.02 X10^3/uL; Eosinophils% 0.2 % (0-5); Hematocrit 48.1 % (40-54); Hemoglobin 16.9 g/dL (13.0-16.5); Lymphocyte # 2.76 X10^3/ul (0.83-4.51); Lymphocyte % 31.5 % (19-41); Mean Corp Hgb Conc 35.1 g/dL (32-36); Mean Corpuscular Hgb 31.6 pg (27.0-32.0); Mean Corpuscular Volume 90.1 fL (80-94); Mean Platelet Vol. 10.1 fl (6.2-12.0); Monocyte# 0.73 X10^3/uL; Monocyte% 8.3 % (0-10); NRBC Flagged by Analyzer 0 % (0-5); Neutrophil # 5.17 X10^3/uL (2.7-7.7); Neutrophil % 59.1 % (47-70); Platelet Count 206 K/mm3 (150-450); RBC Distribution Width CV 12.5 % (11.6-14.6); RBC Distribution Width SD 41.2 fl (35.1-43.9); Red Blood Count 5.34 M/mm3 (4.6-6.2); White Blood Count 8.8 K/mm3 (4.4-11.0)
[2024-02-13] MEDS: Metoclopramide 10 MG/2 ML Vial 5 MG IV (17:19)
[2024-02-13] MEDS: Meclizine HCl 25 MG Tablet PO (17:19)
[2024-02-13 17:27] LABS: Anion Gap 4 (5-15); BUN 10 mg/dL (7-18); BUN/Creat Ratio 9.4 RATIO (10-20); Chloride 109 mmol/L (98-107); Creatinine, Serum 1.06 mg/dL (0.70-1.30); EST Glomerular Filtration Rate 81 mL/min (>60); Est Glom Filt Rate - Afr Amer 98 mL/min (>60); Estimated Creatinine Clearance 97.84 ml/min; Glucose 103 mg/dL (74-106); Potassium 3.9 mmol/L (3.5-5.1); Sodium Level 140 mmol/L (136-145)
[2024-02-13 17:36] VITALS: BP 110/69; PULSE 91; RESP 16; O2SAT 100
[2024-02-13 17:49] LABS: D-Dimer Quantitative (DVT/PE) < 0.27 FEU/ug/m (0.27-0.49)
[2024-02-13 18:00] VITALS: BP 111/73; PULSE 82; RESP 14; O2SAT 100
[2024-02-13 19:36] VITALS: BP 133/80; PULSE 69; RESP 18; TEMP 36.8; O2SAT 97
== END 2024-02-13 19:40 | disposition home or self-care (01) ==
PROVIDERS: Emergency Provider Emergency Medicine; PCP Internal Medicine; Visit Provider Emergency Medicine
DX: R42 Dizziness and giddiness (principal); R56.9 Unspecified convulsions; F17.210 Nicotine dependence, cigarettes, uncomplicated; Z79.899 Other long term (current) drug therapy; Z90.49 Acquired absence of other specified parts of digestive tract; S46.212A Strain of muscle, fascia and tendon of other parts of biceps, left arm, initial encounter
CPT/HCPCS: 80048; 85025; 85379; 96374; 99283; A4216

== ENCOUNTER 2024-03-14 07:33 | Emergency (ER) | payer MEDICAID, SELFPAY ==
[2024-03-14] VITALS (7 sets, daily range): BP systolic 114–150; BP diastolic 67–79; PULSE 41–48; RESP 14–20; TEMP 36.4–36.8; O2SAT 96–98; BMI 34.6
--- NOTE | 2024-03-14 07:38 | RAD_ITS ---
EXAM: XR CHEST, 1 VIEW CLINICAL INDICATION: chest pain TECHNIQUE: Frontal view of the chest. COMPARISON: No relevant prior studies available. FINDINGS: LUNGS AND PLEURAL SPACES: Unremarkable. No consolidation or edema. No pneumothorax. No effusion. HEART: Unremarkable. Cardiac silhouette not enlarged. MEDIASTINUM: Central airways and mediastinal contour are unremarkable. BONES/JOINTS: Unremarkable. No acute fracture. SOFT TISSUES: Unremarkable. RAD/Chest 1 View (Portable) IMPRESSION: No radiographic evidence of acute cardiopulmonary disease. Electronically Signed: Jimenez Castellanos MD at 8:28 EDT ,
[2024-03-14] MEDS: Aspirin 81 MG TAB.CHEW 324 MG PO (07:51)
[2024-03-14 07:53] LABS: Absolute Lymphocyte Count 3.63 X10^3/uL (0.83-4.51); Absolute Neutrophil Count 4.3 X10^3/uL (2.0-7.7); Basophil# 0.05 X10^3/uL; Basophil% 0.6 % (0-1); Eosinophil# 0.06 X10^3/uL; Eosinophils% 0.7 % (0-5); Hematocrit 47.4 % (40-54); Hemoglobin 16.2 g/dL (13.0-16.5); Lymphocyte # 3.63 X10^3/ul (0.83-4.51); Mean Corp Hgb Conc 34.2 g/dL (32-36); Mean Corpuscular Hgb 31.6 pg (27.0-32.0); Mean Corpuscular Volume 92.4 fL (80-94); Mean Platelet Vol. 10.3 fl (6.2-12.0); Monocyte# 0.63 X10^3/uL; Monocyte% 7.3 % (0-10); NRBC Flagged by Analyzer 0 % (0-5); Neutrophil # 4.27 X10^3/uL (2.7-7.7); Neutrophil % 49.3 % (47-70); Platelet Count 186 K/mm3 (150-450); RBC Distribution Width CV 12.5 % (11.6-14.6); RBC Distribution Width SD 42.8 fl (35.1-43.9); Red Blood Count 5.13 M/mm3 (4.6-6.2); White Blood Count 8.7 K/mm3 (4.4-11.0)
[2024-03-14 08:08] LABS: Anion Gap 7 (5-15); BUN 11 mg/dL (7-18); BUN/Creat Ratio 10.4 RATIO (10-20); Calcium,Total 8.9 mg/dL (8.5-10.1); Chloride 106 mmol/L (98-107); Creatinine, Serum 1.06 mg/dL (0.70-1.30); EST Glomerular Filtration Rate 81 mL/min (>60); Est Glom Filt Rate - Afr Amer 98 mL/min (>60); Estimated Creatinine Clearance 104.68 ml/min; Glucose 104 mg/dL (74-106); Potassium 4.2 mmol/L (3.5-5.1); Sodium Level 138 mmol/L (136-145); Troponin-I HS (w/2H Reflex) 5 pg/mL (3.0-78.0)
--- NOTE | 2024-03-14 08:22 | EDS_ITS ---
HPI History of Present Illness Chief Complaint: Chest Pain Narrative Narrative: 43-year-old male presenting with chest pressure. He states the chest pressure started last night around 10 PM. It has been constant at about a 2 or 3 all evening. He states that he has intermittent episodes of sharp pain that come and go but the pressure has been constant. He does not have any cardiac history that he knows of. He has not had a fever, chills, cough, shortness of breath. No history of DVT/PE and no risk factors he also says he is lightheaded and dizzy and he has a history of this. He was recently treated for vertigo and was given prescriptions for meclizine and Reglan but he did not try the medication. Patient also states he had some tingling into the left hand and left bicep. This has been ongoing since noon yesterday no history of TIA or stroke. No risk factors. Patient does have history of seizure disorder and has been taking his medications. Patient also states that 10 minutes after he arrived to the emergency room he developed a headache which is mild. No photophobia or phonophobia. No history of migraines. [facility] Medical History Seizure Home Medications ?Medication ?Instructions ?Recorded ?Last Taken ?Type trazodone 100 mg tablet 100 mg PO QHS 01/05/18 Unknown History lamotrigine 200 mg tablet 375 mg PO Q12H SEIZURES 12/29/19 Unknown History oxycodone-acetaminophen 5 mg-325 1 tab PO Q6H PRN PRN Pain 3 days 12/18/23 Unknown Rx mg tablet #12 TABLETS meclizine 25 mg tablet 25 mg PO Q8H PRN PRN Dizziness #20 02/13/24 Unknown Rx tabs metoclopramide HCl 10 mg tablet 10 mg PO Q6H PRN nausea or head 02/13/24 Unknown Rx pressure #10 tabs alprazolam 1 mg tablet 1 mg PO BID 03/14/24 Unknown History omeprazole 20 mg capsule,delayed 20 mg PO 03/14/24 Unknown History release vortioxetine 20 mg tablet 20 mg PO DAILY 03/14/24 Unknown History (Trintellix) zonisamide 50 mg capsule 50 mg PO BID 03/14/24 Unknown History Allergy/AdvReac Type Severity Reaction Status Date / Time acetaminophen (From Vicodin) Allergy MUSCLULAR Verified 03/14/24 07:33 CHEST PAIN hydrocodone (From Vicodin) Allergy MUSCLULAR Verified 03/14/24 07:33 CHEST PAIN Penicillins Allergy Swelling Verified 03/14/24 07:33 prednisone AdvReac Pain in Verified 03/14/24 07:33 joints Surgical History History of ankle surgery Hx of elbow surgery History of carpal tunnel surgery Hx of appendectomy Social History Smoking Status: Current every day smoker tobacco type: cigarettes ROS ROS ED ROS Narrative Dizziness/lightheadedness Constitutional Constitutional ED: Denies chills, fever(s) or sweats Eyes Eyes: Denies blurry vision or change in vision ENT ENT ED: Denies ear pain or sore throat Cardiovascular Cardiovascular: Reports chest pain; Denies palpitations or racing heartbeat Respiratory/Chest Respiratory/Chest: Denies cough, dyspnea or sputum Gastrointestinal Gastrointestinal: Denies abdominal pain, constipation, diarrhea, nausea or vomiting Genitourinary Genitourinary ED: Denies dysuria, hematuria or urinary frequency Musculoskeletal Musculoskeletal: Denies arthralgias, myalgias or neck pain Integumentary Denies abscess, Abrasions or rash Neurologic Neurologic: Reports headache(s) and paresthesias LUE; Denies weakness Psychiatric Psychiatric: Denies anxiety, depression, suicidal ideation or suicidal thoughts Endocrine Endocrinology: Denies polydipsia or polyuria EXAM Physical Exam Const Vital Signs: 03/14/24 07:34 03/14/24 07:36 03/14/24 07:54 Temperature 98.3 F Temperature Source Oral Pulse Rate 47 L Pulse Rate [Lying] Pulse Rate [Sitting (for 1 minute prior to obtaining)] Pulse Rate [Standing (for 1 minute prior to obtaining)] Respiratory Rate 14 Respiratory Effort Normal Non-Labored Respiratory Pattern Normal Blood Pressure 150/68 H Blood Pressure [Lying] Blood Pressure [Sitting (for 1 minute prior to obtaining)] Blood Pressure [Standing (for 1 minute prior to obtaining)] Blood Pressure Mean 95 Blood Pressure Mean [Lying] Blood Pressure Mean [Sitting (for 1 minute prior to obtaining)] Blood Pressure Mean [Standing (for 1 minute prior to obtaining)] Pulse Ox 98 96 Oxygen Delivery Method Room Air Room Air 03/14/24 08:30 03/14/24 09:00 03/14/24 10:00 Temperature Temperature Source Pulse Rate 41 L 48 L Pulse Rate [Lying] 41 L Pulse Rate [Sitting (for 1 minute prior to obtaining)] 45 L Pulse Rate [Standing (for 1 minute prior to obtaining)] 47 L Respiratory Rate 18 18 Respiratory Effort Respiratory Pattern Blood Pressure 119/73 114/68 Blood Pressure [Lying] 121/72 H Blood Pressure [Sitting (for 1 minute prior to obtaining)] 128/78 H Blood Pressure [Standing (for 1 minute prior to obtaining)] 124/79 H Blood Pressure Mean 88 83 Blood Pressure Mean [Lying] 88 Blood Pressure Mean [Sitting (for 1 minute prior to obtaining)] 94 Blood Pressure Mean [Standing (for 1 minute prior to obtaining)] 94 Pulse Ox 96 97 Oxygen Delivery Method Room Air Room Air 03/14/24 11:00 03/14/24 11:32 Temperature 97.6 F L Temperature Source Pulse Rate 44 L 47 L Pulse Rate [Lying] Pulse Rate [Sitting (for 1 minute prior to obtaining)] Pulse Rate [Standing (for 1 minute prior to obtaining)] Respiratory Rate 20 H 18 Respiratory Effort Respiratory Pattern Blood Pressure 123/67 H 123/67 H Blood Pressure [Lying] Blood Pressure [Sitting (for 1 minute prior to obtaining)] Blood Pressure [Standing (for 1 minute prior to obtaining)] Blood Pressure Mean 85 85 Blood Pressure Mean [Lying] Blood Pressure Mean [Sitting (for 1 minute prior to obtaining)] Blood Pressure Mean [Standing (for 1 minute prior to obtaining)] Pulse Ox 98 98 Oxygen Delivery Method Room Air Positive well nourished General Appearance ED: NAD HEENT Reports moist mucous membranes normocephalic and atraumatic Eyes PERRL and EOMs intact bilaterally Neck no lymphadenopathy Chest Wall inspection of chest normal Resp normal respiratory effort and clear to auscultation bilaterally Cardio regular rhythm Rate: bradycardia GI normal to inspection, nondistended, normoactive bowel sounds Neuro oriented x3 and CN's II-XII intact bilaterally Neuro Narrative: NIH stroke scale score of 0. No focal neurologic deficits or lateralizing signs or symptoms. Motor Exam: strength 5/5 throughout Psych mental status grossly normal Skin no rashes or lesions noted Heart Score History: Slightly/Non-Suspicious ECG: Normal Age: </= 45 years Risk Factors: No Risk Factors Troponin: </= Normal Limit Score: 0 MDM MDM MDM Narrative Medical decision making narrative: 43-year-old male presenting with multiple complaints. The first of which is chest pressure which she has had since 10 PM last evening. Differential includes ACS, pneumonia, costochondritis, pneumothorax. Considered PE however patient is PERC negative. Patient denies any chest wall trauma. Patient also has complaint of tingling in the left hand and the left arm but on neurologic exam he has sensation here in both places he just states it tingles. He is not actually numb. NIH stroke score of 0. Unclear what the etiology of the symptoms is but it does not appear to be a stroke. Patient also complaining of headache which is mild as well as some lightheadedness. Differential includes dehydration, anemia, electrolyte normalities, vertigo, dysrhythmia. CBC will be obtained to assess white blood cell count, hemoglobin, platelets. BMP to assess renal function, electrolytes, glucose. High-sensitivity troponin and EKG to assess for ischemia/dysrhythmia. Chest x-ray to rule out pneumonia or CHF. Patient was medicated with meclizine, Toradol, Reglan. Orthostatic vital signs will be obtained. CBC shows normal white blood cell count 8.7. Hemoglobin 16.2. Platelets are normal at 186. Renal function electrolytes are normal. High-sensitivity troponin is 5. Delta troponin is 4. Chest x-ray interpreted by myself shows no acute cardiopulmonary process. Radiologist interprets this and agrees. EKG shows a sinus bradycardia at 47 bpm without sign of ischemic change or ectopy on my interpretation. Orthostatic vital signs are normal. Patient feels a little bit better on reevaluation. I will refill his Reglan and meclizine as he states this did help with his dizziness symptoms. I do not believe he needs further workup with lab work or imaging. She is amenable to discharge home. Impression: 1. Dizziness 2. Chest pain 3. Paresthesia Lab Data Attestation: I reviewed the patient's lab results. Labs: Laboratory Results - last 24 hr 03/14/24 03/14/24 07:30 10:01 WBC 8.7 RBC 5.13 Hgb 16.2 Hct 47.4 MCV 92.4 MCH 31.6 MCHC 34.2 RDW Std Deviation 42.8 RDW Coeff of [place] 12.5 Plt Count 186 MPV 10.3 Immature Gran % (Auto) 0.100 Neut % (Auto) 49.3 Lymph % (Auto) 42.0 H [place] % (Auto) 7.3 Eos % (Auto) 0.7 Baso % (Auto) 0.6 Absolute Neuts (auto) 4.3 Absolute Lymphs (auto) 3.63 Nucleated RBC % 0 Sodium 138 Potassium 4.2 Chloride 106 Carbon Dioxide 25.0 Anion Gap 7 BUN 11 Creatinine 1.06 Estim Creat Clear Calc 104.68 Est GFR (MDRD) Af Amer 98 Est GFR (MDRD) Non-Af 81 BUN/Creatinine Ratio 10.4 Glucose 104 Calcium 8.9 Troponin I High Sens 5 4 Radiography Diagnostic Testing: Clinical Impression(s) from Imaging Studies Chest X-Ray 03/14/24 07:38 IMPRESSION: No radiographic evidence of acute cardiopulmonary disease. Electronically Signed: Jimenez Castellanos MD at 8:28 EDT Reading Location ID and State: [address] [place] [address] , Service support , Discharge Plan Triage Chief Complaint: Chest Pain ED Provider: Steffen De Guzman Dx/Rx/DC Orders Prescriptions: No Action trazodone 100 MG tablet 100 mg PO QHS lamotrigine 200 MG tablet 375 mg PO Q12H oxycodone-acetaminophen 5-325 mg tablet 1 tab PO Q6H PRN PRN (Reason: Pain) 3 Days Qty: 12 0RF meclizine [meclizine] 25 mg tablet 25 mg PO Q8H PRN PRN (Reason: Dizziness) Qty: 20 0RF metoclopramide HCl [metoclopramide HCl] 10 mg tablet 10 mg PO Q6H PRN (Reason: nausea or head pressure) Qty: 10 0RF alprazolam 1 mg tablet 1 mg PO BID omeprazole 20 mg capsule,delayed release(DR/EC) 20 mg PO zonisamide 50 mg capsule 50 mg PO BID Trintellix 20 mg tablet 20 mg PO DAILY Primary Care Provider: Rachael Arreola Referrals: Rachael Arreola MD [Primary Care Provider] - Print Language: Swazi Disposition Disposition: Home, Self Care Discharge Date/Time: 03/14/24 11:33
[2024-03-14 09:47] LABS: Reflex Troponin-HS? (from REC) Y
[2024-03-14 10:27] LABS: Troponin-I HS 4 pg/mL (3.0-78.0)
== END 2024-03-14 11:33 | disposition home or self-care (01) ==
LOC: ED 08:18
PROVIDERS: Emergency Provider Student in an Organized Health Care Education/Training Program; PCP Internal Medicine; Visit Provider Student in an Organized Health Care Education/Training Program
DX: R42 Dizziness and giddiness (principal); G40.909 Epilepsy, unspecified, not intractable, without status epilepticus; F17.210 Nicotine dependence, cigarettes, uncomplicated; R07.9 Chest pain, unspecified; R20.2 Paresthesia of skin; Z79.899 Other long term (current) drug therapy; Z90.49 Acquired absence of other specified parts of digestive tract
CPT/HCPCS: 71045; 80048; 84484; 85025; 93005; 99285